=== PATIENT | female | born 1970 | race Caucasian/White ===

== ENCOUNTER → 2017-09-27 08:23 | Outpatient (CLI) | payer OTHER, SELFPAY ==
[2017-09-27 09:38] LABS: Cholesterol 173 mg/dL (200); Free T3 2.6 pg/mL (2.18-3.98); High Density Lipoprotein 53 mg/dL; T4 Free Direct 1.56 ng/dL (0.76-1.46); Thyroid Stim Hormone (TSH) 1.23 uIU/mL (0.358-3.74); Triglycerides 68 mg/dL; Very Low Density Lipoprotein 14 mg/dL (5-40)
[2017-09-29 10:01] LABS: Thyroid Peroxidase AB 244 IU/mL (0-34)
== END ==
PROVIDERS: Family Provider Family Medicine; PCP Family Medicine; Visit Provider Family Medicine
DX: Z13.220 Encounter for screening for lipoid disorders (principal); E03.9 Hypothyroidism, unspecified
CPT/HCPCS: 80061; 84439; 84443; 84481; 86376

== ENCOUNTER → 2018-01-07 15:28 | Outpatient (CLI) | payer OTHER, SELFPAY ==
[2018-01-07 18:15] LABS: Free T3 2.8 pg/mL (2.18-3.98); T4 Free Direct 1.31 ng/dL (0.76-1.46); Thyroid Stim Hormone (TSH) 0.94 uIU/mL (0.358-3.74)
== END ==
PROVIDERS: Family Provider Family Medicine; PCP Family Medicine; Visit Provider Family Medicine
DX: E03.9 Hypothyroidism, unspecified (principal)
CPT/HCPCS: 36415; 84439; 84443; 84481

== ENCOUNTER → 2018-10-20 07:13 | Outpatient (CLI) | payer OTHER, SELFPAY ==
[2018-10-20 11:15] LABS: AST(SGOT) 23 U/L (15-37); Alanine Aminotransfer ALT/SGPT 30 U/L (13-56); Albumin, Serum 3.8 g/dL (3.2-5.0); Alkaline Phosphatase 76 U/L (45-117); Anion Gap 11 (5-15); BUN 10 mg/dL (7-18); BUN/Creat Ratio 13.4 RATIO (10-20); Calcium,Total 8.9 mg/dL (8.5-10.1); Chloride 104 mmol/L (98-107); Creatinine, Serum 0.75 mg/dL (0.55-1.02); EST Glomerular Filtration Rate 87 mL/min (>60); Est Glom Filt Rate - Afr Amer 105 mL/min (>60); Globulin 3.7 g/dL (2.2-4.2); Glucose 73 mg/dL (74-106); Potassium 3.6 mmol/L (3.5-5.1); Protein, Total 7.5 g/dL (6.4-8.2); Sodium Level 141 mmol/L (136-145); T4 Free Direct 1.11 ng/dL (0.76-1.46)
== END ==
PROVIDERS: Family Provider Family Medicine; PCP Family Medicine; Referring Provider Family Medicine; Visit Provider Family Medicine
DX: E03.9 Hypothyroidism, unspecified (principal); R63.4 Abnormal weight loss
CPT/HCPCS: 36415; 80053; 84439; 84443

== ENCOUNTER → 2019-01-20 15:10 | Outpatient (CLI) | payer OTHER, SELFPAY ==
[2019-01-20 18:01] LABS: Anion Gap 5 (5-15); BUN 14 mg/dL (7-18); BUN/Creat Ratio 17.6 RATIO (10-20); Calcium,Total 9.2 mg/dL (8.5-10.1); Chloride 104 mmol/L (98-107); Creatinine, Serum 0.79 mg/dL (0.55-1.02); EST Glomerular Filtration Rate 81 mL/min (>60); Est Glom Filt Rate - Afr Amer 98 mL/min (>60); Glucose 82 mg/dL (74-106); Sodium Level 140 mmol/L (136-145); T4 Free Direct 1.41 ng/dL (0.76-1.46); Thyroid Stim Hormone (TSH) 0.41 uIU/mL (0.358-3.74)
== END ==
PROVIDERS: Family Provider Family Medicine; PCP Family Medicine; Referring Provider Family Medicine; Visit Provider Nurse Practitioner Family
DX: R42 Dizziness and giddiness (principal); E03.9 Hypothyroidism, unspecified
CPT/HCPCS: 36415; 80048; 84439; 84443

== ENCOUNTER → 2019-03-17 15:37 | Outpatient (CLI) | payer OTHER, SELFPAY ==
[2019-03-17 17:54] LABS: Cholesterol 218 mg/dL (200); Free T3 2.7 pg/mL (2.18-3.98); High Density Lipoprotein 63 mg/dL; Triglycerides 226 mg/dL; Very Low Density Lipoprotein 45 mg/dL (5-40)
[2019-03-19 06:48] LABS: Thyroid Peroxidase AB 142 IU/mL (0-34)
== END ==
PROVIDERS: Family Provider Family Medicine; PCP Family Medicine; Referring Provider Internal Medicine Endocrinology, Diabetes & Metabolism; Visit Provider Internal Medicine Endocrinology, Diabetes & Metabolism
DX: Z00.00 Encounter for general adult medical examination without abnormal findings (principal); E03.9 Hypothyroidism, unspecified
CPT/HCPCS: 36415; 80061; 84439; 84443; 84481; 86376

== ENCOUNTER → 2019-03-31 08:57 | Outpatient (CLI) | payer OTHER, SELFPAY ==
--- NOTE | 2019-03-31 09:13 | US_ITS ---
STUDY: THYROID ULTRASOUND REASON FOR EXAM: Female, 48 years old. TECHNIQUE: Ultrasound evaluation of the thyroid was performed with real-time and static self-scale imaging. COMPARISON: None. FINDINGS: RIGHT LOBE: The right lobe of the thyroid gland measures 5.3 x 1.8 x 1.9 cm it is heterogeneous but mostly hypoechoic and irregular cm. There is a 0.4 x 0.2 cm nodule within the right lobe that shows hyperechoic center. LEFT LOBE: The left lobe of the thyroid gland measures 4.2 x 1.5 x 1.2 cm irregular hypoechoic heterogeneous in appearance. There are no demonstrated solid, cystic or complex lesions. ISTHMUS: The isthmus measures 3 mm . The regional lymph nodes are normal. US/Thyroid IMPRESSION: Hypoechoic heterogeneous thyroid tissue of both lobes with a small nodule within the right lobe as mentioned above Electronically Signed: Anel Kendall, at 10:15 EST Tel , Service support ,
== END ==
PROVIDERS: Family Provider Family Medicine; PCP Family Medicine; Referring Provider Internal Medicine Endocrinology, Diabetes & Metabolism; Visit Provider Internal Medicine Endocrinology, Diabetes & Metabolism
DX: E04.1 Nontoxic single thyroid nodule (principal)
CPT/HCPCS: 76536

== ENCOUNTER → 2019-06-21 07:14 | Outpatient (CLI) | payer OTHER, SELFPAY ==
[2019-06-21 10:20] LABS: Absolute Neutrophil Count 3.7 X10^3/uL (2.0-7.7); Basophil# 0.04 X10^3/uL; Basophil% 0.7 % (0-1); Eosinophil# 0.09 X10^3/uL; Eosinophils% 1.5 % (0-5); Hematocrit 40.8 % (37-47); Mean Corp Hgb Conc 34.3 g/dL (32-36); Mean Corpuscular Volume 90.3 fL (81-99); Mean Platelet Vol. 10.8 fl (6.2-12.0); Monocyte# 0.49 X10^3/uL; Monocyte% 8.3 % (0-10); NRBC Flagged by Analyzer 0 % (0-5); Neutrophil # 3.69 X10^3/uL (2.7-7.7); Neutrophil % 62.3 % (47-70); Platelet Count 264 K/mm3 (150-450); RBC Distribution Width CV 12.2 % (11.6-14.6); RBC Distribution Width SD 40.1 fl (35.1-43.9); Red Blood Count 4.52 M/mm3 (4.2-5.4); White Blood Count 5.9 K/mm3 (4.4-11.0)
[2019-06-21 10:44] LABS: AST(SGOT) 17 U/L (15-37); Alanine Aminotransfer ALT/SGPT 24 U/L (13-56); Albumin, Serum 3.7 g/dL (3.2-5.0); Alkaline Phosphatase 76 U/L (45-117); Anion Gap 6 (5-15); BUN 12 mg/dL (7-18); BUN/Creat Ratio 14.8 RATIO (10-20); Calcium,Total 8.7 mg/dL (8.5-10.1); Chloride 107 mmol/L (98-107); Creatinine, Serum 0.81 mg/dL (0.55-1.02); EST Glomerular Filtration Rate 79 mL/min (>60); Est Glom Filt Rate - Afr Amer 96 mL/min (>60); Free T3 2.1 pg/mL (2.18-3.98); Globulin 3.7 g/dL (2.2-4.2); Glucose 93 mg/dL (74-106); Potassium 3.7 mmol/L (3.5-5.1); Protein, Total 7.4 g/dL (6.4-8.2); Sodium Level 141 mmol/L (136-145); T4 Free Direct 1.34 ng/dL (0.76-1.46); Thyroid Stim Hormone (TSH) 3.57 uIU/mL (0.358-3.74)
[2019-06-21 10:54] LABS: Cholesterol 229 mg/dL (200); High Density Lipoprotein 63 mg/dL; Triglycerides 113 mg/dL; Very Low Density Lipoprotein 23 mg/dL (5-40)
== END ==
PROVIDERS: PCP Family Medicine; Referring Provider Internal Medicine Endocrinology, Diabetes & Metabolism; Visit Provider Internal Medicine Endocrinology, Diabetes & Metabolism
DX: Z00.00 Encounter for general adult medical examination without abnormal findings (principal); E03.9 Hypothyroidism, unspecified; E55.9 Vitamin D deficiency, unspecified
CPT/HCPCS: 36415; 80053; 80061; 82306; 84439; 84443; 84481; 85025

== ENCOUNTER → 2019-10-05 09:23 | Outpatient (CLI) | payer OTHER, SELFPAY ==
[2019-10-05 11:08] LABS: Free T3 2.3 pg/mL (2.18-3.98); T4 Free Direct 1.18 ng/dL (0.76-1.46); Thyroid Stim Hormone (TSH) 4.12 uIU/mL (0.358-3.74)
== END ==
PROVIDERS: PCP Family Medicine; Referring Provider Family Medicine; Visit Provider Family Medicine
DX: E03.9 Hypothyroidism, unspecified (principal)
CPT/HCPCS: 36415; 84439; 84443; 84481

== ENCOUNTER 2019-11-07 10:08 | Emergency (ER) | payer OTHER, SELFPAY ==
[2019-11-07 10:09] VITALS: BP 145/74; PULSE 70; RESP 18; TEMP 36.8; O2SAT 98; BMI 33.3
--- NOTE | 2019-11-07 10:40 | ED.DCSUM_ITS ---
History of Present Illness Chief Complaint: Weakness Informant: Patient Onset: Days Context: Gradual Onset Current Severity: Moderate Maximum Severity: Moderate Narrative: Patient presents secondary to concerns for dehydration and weakness. She states last Friday she got a sunburn. That evening she developed diarrhea. She has had a headache and felt generally weak since that time. She reports some abdominal cramping that started the following day and increased symptoms of reflux. She has noted increased sleepiness and states she would not want go to bed all weekend. She does report having some upper abdominal pain for the past month intermittently and thought she may be getting an ulcer. She denies frequent use of NSAIDs. She has a history of reflux in the past but has not req uired medication for this for quite some time. - Past Medical History (1) GERD (gastroesophageal reflux disease) Status: Chronic (2) Hypothyroid Status: Chronic Past Medical History - Allergies and Home Meds Allergies/Adverse Reactions: Allergies No Known Allergies Allergy (Verified 11/07/19 10:12) Primary Care Physician: Oscar Barroso MD [Primary Care Provider] - Prior records reviewed: Yes Lives: With Family Review of Systems General: Denies: Chills, Fever Eyes: Denies: Visual changes - bilaterally ENT: Denies: Bilateral ear pain Cardiovascular: Denies: Chest pain Respiratory: Denies: Dyspnea, Cough Gastrointestinal: Reports: Abdominal pain, Diarrhea Genitourinary: Denies: Dysuria Musculoskeletal: Reports: Back pain. Denies: Extremity Pain Skin: Denies: Rash Neurological: Reports: Headache Hematologic: Denies: Easy bruising, Easy bleeding Allergy: Denies: Uticaria Physical Exam Vital Signs/Narrative: Vital Signs Temp Pulse Resp BP Pulse Ox 11/07/19 10:09 98.2 F 70 18 145/74 H 98 Inital Vital Signs reviewed: Yes General: Well nourished, Well developed Head: Normocephalic ENT: Moist mucous membranes Neck: Supple Cardiovascular: Regular rate, Regular rhythm Respiratory: No distress, CTA bilaterally Abdomen: Soft, Tender - Mild epigastric tenderness to palpation., Hypoactive bowel sounds. Negative for: Guarding, Rebound tenderness Extremities: Nontender Skin: Normal color Neurological: Alert, Oriented x3 Psychological: Normal affect Diagnostic/Tx/Re-eval Laboratory Results 11/07/19 11/07/19 11/07/19 10:30 10:30 12:50 WBC 6.7 RBC 4.78 Hgb 14.5 Hct 42.7 MCV 89.3 MCH 30.3 MCHC 34.0 RDW Std Deviation 39.1 RDW Coeff of Sandra 12.0 Plt Count 279 MPV 9.5 Immature Gran % (Auto) 0.400 Neut % (Auto) 75.3 H Lymph % (Auto) 16.[address] [place] % (Auto) 7.3 Eos % (Auto) 0.3 Baso % (Auto) 0.4 Absolute Neuts (auto) 5.0 Absolute Lymphs (auto) 1.09 Nucleated RBC % 0 Sodium 138 Potassium 4.1 Chloride 106 Carbon Dioxide 28.0 Anion Gap 4 L BUN 9 Creatinine 0.70 Estim Creat Clear Calc 85.56 Est GFR (MDRD) Af Amer 113 Est GFR (MDRD) Non-Af 93 BUN/Creatinine Ratio 12.8 Glucose 102 Calcium 8.7 Total Bilirubin 1.10 H AST 28 ALT 30 Alkaline Phosphatase 69 Total Protein 7.8 Albumin 3.7 Globulin 4.1 Albumin/Globulin Ratio 0.9 Lipase 90 TSH 1.18 Urine Color Yellow Urine Clarity Sl. Cloudy Urine pH 5.0 Ur Specific [place] 1.020 Urine Protein Negative Urine Glucose (UA) Normal Urine Ketones 50 H Urine Occult Blood Negative Urine Nitrite Negative Urine Bilirubin Negative Urine Urobilinogen Normal Ur Leukocyte Esterase 25 H Urine RBC 0 SEEN Urine WBC 0-5 SEEN Ur Squamous Epith Cells 0-5 SEEN Urine Bacteria RARE Urine Mucus 1+ - Medical Decision Making Patient was given Toradol, Zofran, Protonix, and a liter of IV fluids. On repeat evaluation she does feel improved. We discussed following a bland diet and increasing fluids such as Gatorade or Powerade. She is to follow with her primary care physician later this week. She is given return instructions. ED Disposition - Plan for ED Patient: Disposition: Home or Assisted Living Diagnosis: Dehydration Instructions: ED Dehydration Adult Referrals: Oscar Barroso MD [Primary Care Provider] - 5-7 Days
[2019-11-07 11:00] LABS: Absolute Lymphocyte Count 1.09 X10^3/uL (0.83-4.51); Basophil# 0.03 X10^3/uL; Basophil% 0.4 % (0-1); Eosinophil# 0.02 X10^3/uL; Eosinophils% 0.3 % (0-5); Hematocrit 42.7 % (37-47); Hemoglobin 14.5 g/dL (12.0-15.0); Lymphocyte # 1.09 X10^3/ul (4.0); Lymphocyte % 16.3 % (19-41); Mean Corpuscular Hgb 30.3 pg (27.0-32.0); Mean Corpuscular Volume 89.3 fL (81-99); Mean Platelet Vol. 9.5 fl (6.2-12.0); Monocyte# 0.49 X10^3/uL; Monocyte% 7.3 % (0-10); NRBC Flagged by Analyzer 0 % (0-5); Neutrophil # 5.03 X10^3/uL (2.7-7.7); Neutrophil % 75.3 % (47-70); Platelet Count 279 K/mm3 (150-450); RBC Distribution Width SD 39.1 fl (35.1-43.9); Red Blood Count 4.78 M/mm3 (4.2-5.4); White Blood Count 6.7 K/mm3 (4.4-11.0)
[2019-11-07] MEDS: 0.9% Normal Saline 1,000 ML 1000 ML IV (11:06)
[2019-11-07] MEDS: Ondansetron 4 MG/2 ML Vial IV (11:07)
[2019-11-07] MEDS: Ketorolac 30 MG/ML Syringe IV (11:07)
[2019-11-07 11:24] LABS: ALB/GLOB Ratio 0.9 RATIO (0.9-2.4); AST(SGOT) 28 U/L (15-37); Alanine Aminotransfer ALT/SGPT 30 U/L (13-56); Albumin, Serum 3.7 g/dL (3.2-5.0); Alkaline Phosphatase 69 U/L (45-117); Anion Gap 4 (5-15); BUN 9 mg/dL (7-18); BUN/Creat Ratio 12.8 RATIO (10-20); Calcium,Total 8.7 mg/dL (8.5-10.1); Chloride 106 mmol/L (98-107); EST Glomerular Filtration Rate 93 mL/min (>60); Est Glom Filt Rate - Afr Amer 113 mL/min (>60); Estimated Creatinine Clearance 85.56 ml/min; Globulin 4.1 g/dL (2.2-4.2); Glucose 102 mg/dL (74-106); Lipase 90 U/L (73-393); Potassium 4.1 mmol/L (3.5-5.1); Protein, Total 7.8 g/dL (6.4-8.2); Sodium Level 138 mmol/L (136-145); Thyroid Stim Hormone (TSH) 1.18 uIU/mL (0.358-3.74)
[2019-11-07 12:54] LABS: Red Blood Cells-Urine 0 SEEN /hpf (0-5)
[2019-11-07 12:59] LABS: Color, Urine Yellow (Yellow); Glucose, Dipstick Normal (Normal); Ketone-Dipstick 50 mg/dl (Negative); Leukocyte Esterase-Dipstick 25 /ul (Negative); Nitrite-Dipstick Negative (Negative); Occult Blood-Urine Negative /ul (Negative); Protein-Dipstick Negative (Negative); Urine Bilirubin Dipstick Negative (Negative); Urine Clarity Sl. Cloudy (Clear); Urine Urobilinogen Normal (Normal)
[2019-11-07 13:13] LABS: Bacteria RARE /hpf (None Seen); Mucous, Urine 1+ /hpf (<or=2+); Squamous Epithelial Cells - UA 0-5 SEEN /hpf (5-10); White Blood Cells 0-5 SEEN /hpf (0-5)
[2019-11-07 13:50] VITALS: BP 138/79; PULSE 77; RESP 16
== END 2019-11-07 13:51 | disposition home or self-care (01) ==
PROVIDERS: Emergency Provider Emergency Medicine; PCP Family Medicine
DX: E86.0 Dehydration (principal); E03.9 Hypothyroidism, unspecified
CPT/HCPCS: 80053; 81001; 83690; 84443; 85025; 96361; 96365; 96375; 99283; J2405

== ENCOUNTER → 2019-11-08 14:09 | Outpatient (CLI) | payer OTHER, SELFPAY ==
[2019-11-07 10:09] VITALS: BMI 33.3
[2019-11-08 16:21] LABS: Magnesium 2.1 mg/dL (1.6-2.6)
== END ==
PROVIDERS: PCP Family Medicine; Visit Provider Family Medicine
DX: R53.81 Other malaise (principal); R53.83 Other fatigue
CPT/HCPCS: 36415; 83735

== ENCOUNTER → 2019-11-09 07:49 | Outpatient (CLI) | payer OTHER, SELFPAY ==
[2019-11-07 10:09] VITALS: BMI 33.3
== END ==
PROVIDERS: PCP Family Medicine; Referring Provider Family Medicine; Visit Provider Family Medicine
DX: R53.81 Other malaise (principal); R53.83 Other fatigue
CPT/HCPCS: 87506

== ENCOUNTER → 2020-06-01 14:51 | Outpatient (CLI) | payer OTHER, SELFPAY ==
--- NOTE | 2020-06-01 14:58 | US_ITS ---
STUDY: THYROID ULTRASOUND REASON FOR EXAM: Female, 50 years old. THYROMEGALY TECHNIQUE: Ultrasound evaluation of the thyroid was performed with real-time and static self-scale imaging. COMPARISON: None. FINDINGS: RIGHT LOBE: The right lobe of the thyroid gland is mildly enlarged and measures 5.2 cm x 1.9 cm x 2 cm. There is a heterogeneous echotexture. There are no demonstrated solid, cystic or complex lesions. LEFT LOBE: The left lobe of the thyroid gland measures 4.2 cm x 1.6 cm x 1.1 cm. There is a heterogeneous echotexture. There are no demonstrated solid, cystic or complex lesions. ISTHMUS: The isthmus measures 4.7 mm. The regional lymph nodes are normal. US/Thyroid IMPRESSION: Mildly enlarged right lobe of the thyroid gland. Heterogeneous echotexture of both lobes. Electronically Signed: Jose Hurtado MD at 15:42 EST , Service support ,
[2020-06-01 16:10] LABS: Free T3 2.7 pg/mL (2.18-3.98); T4 Free Direct 1.44 ng/dL (0.76-1.46); Thyroid Stim Hormone (TSH) 0.91 uIU/mL (0.358-3.74)
== END ==
PROVIDERS: PCP Family Medicine; Referring Provider Internal Medicine Endocrinology, Diabetes & Metabolism; Visit Provider Internal Medicine Endocrinology, Diabetes & Metabolism
DX: E01.0 Iodine-deficiency related diffuse (endemic) goiter (principal)
CPT/HCPCS: 36415; 76536; 84439; 84443; 84481

== ENCOUNTER → 2020-10-17 15:10 | Outpatient (CLI) | payer OTHER, SELFPAY ==
--- NOTE | 2020-10-17 15:15 | RAD_ITS ---
HISTORY: INJURY OF FINGERS. TECHNIQUE: XR Fingers Min 2 Views. Number of images including paperwork: 3. COMPARISON: None. FINDINGS: OSSEOUS STRUCTURES: No acute fracture. Mineralization unremarkable. JOINT SPACES: Maintained. No dislocation. RAD/Finger(s) Min 2 Views IMPRESSION: No acute fracture or dislocation identified in the left fifth finger. at 1637 Reported and signed by: Shandra Miranda MD Electronically Signed: Shandra Miranda MD at 16:36 EDT Tel , Service support ,
--- NOTE | 2020-10-17 15:24 | RAD_ITS ---
STUDY: X-RAY - LEFT HAND, ATTENTION 4 FINGER REASON FOR EXAM: Female, 50 years old. PAIN TECHNIQUE: 3 view(s) of the finger were obtained. COMPARISON: None. FINDINGS: Normal metacarpal head. Normal metacarpophalangeal joint. Normal proximal phalanx. There is a subtle lucency at the base of the middle phalanx of the fourth digit. Normal distal phalanx. Normal proximal interphalangeal joint. Normal distal interphalangeal joint. RAD/Finger(s) Min 2 Views IMPRESSION: Findings suspicious for subacute nondisplaced corner fracture of the head of the middle phalanx of the fourth digit. Electronically Signed: Zulma Domínguez MD at 5:21 EDT Tel , Service support ,
== END ==
PROVIDERS: PCP Family Medicine; Referring Provider Family Medicine; Visit Provider Family Medicine
DX: M79.645 Pain in left finger(s) (principal)
CPT/HCPCS: 73140

== ENCOUNTER → 2020-10-30 16:08 | Outpatient (CLI) | payer OTHER, SELFPAY ==
--- NOTE | 2020-10-30 16:12 | RAD_ITS ---
STUDY: X-RAY - LEFT HAND, ATTENTION 4 FINGER REASON FOR EXAM: Female, 50 years old. Pain at PIP TECHNIQUE: 3 view(s) of the finger were obtained. COMPARISON: 10/17/2020 FINDINGS: Normal metacarpal head. Normal metacarpophalangeal joint. Normal proximal phalanx. Healing fracture the volar aspect of the base of the middle phalanx. Normal distal phalanx. Normal proximal interphalangeal joint. Normal distal interphalangeal joint. RAD/Finger(s) Min 2 Views IMPRESSION: Healing fracture the volar aspect of the base of the middle phalanx. Electronically Signed: Ronald Castellano MD at 8:43 EDT Tel , Service support ,
== END ==
PROVIDERS: PCP Family Medicine; Referring Provider Family Medicine; Visit Provider Family Medicine
DX: M79.645 Pain in left finger(s) (principal)
CPT/HCPCS: 73140

== ENCOUNTER → 2021-02-28 14:58 | Outpatient (CLI) | payer OTHER, SELFPAY ==
[2021-02-28 18:28] LABS: Hemoglobin A1c 5.2 % (3.8-5.6)
[2021-02-28 18:31] LABS: ALB/GLOB Ratio 0.9 RATIO (0.9-2.4); AST(SGOT) 23 U/L (15-37); Alanine Aminotransfer ALT/SGPT 37 U/L (13-56); Albumin, Serum 3.7 g/dL (3.2-5.0); Alkaline Phosphatase 75 U/L (45-117); Anion Gap 7 (5-15); BUN 8 mg/dL (7-18); BUN/Creat Ratio 10.7 RATIO (10-20); Calcium,Total 8.7 mg/dL (8.5-10.1); Chloride 103 mmol/L (98-107); Creatinine, Serum 0.75 mg/dL (0.55-1.02); EST Glomerular Filtration Rate 86 mL/min (>60); Est Glom Filt Rate - Afr Amer 104 mL/min (>60); Globulin 4.2 g/dL (2.2-4.2); Glucose 88 mg/dL (74-106); Potassium 4.2 mmol/L (3.5-5.1); Protein, Total 7.9 g/dL (6.4-8.2); Sodium Level 138 mmol/L (136-145); T4 Free Direct 1.38 ng/dL (0.76-1.46); Thyroid Stim Hormone (TSH) 1.08 uIU/mL (0.358-3.74)
== END ==
PROVIDERS: PCP Family Medicine; Referring Provider Internal Medicine Endocrinology, Diabetes & Metabolism; Visit Provider Internal Medicine Endocrinology, Diabetes & Metabolism
DX: E03.9 Hypothyroidism, unspecified (principal); E06.9 Thyroiditis, unspecified
CPT/HCPCS: 36415; 80053; 83036; 84439; 84443; 84481

== ENCOUNTER → 2021-09-19 | Outpatient (CLI) | payer OTHER, SELFPAY ==
[2021-09-19 07:09] LABS: Absolute Lymphocyte Count 1.78 X10^3/uL (0.83-4.51); Basophil# 0.06 X10^3/uL; Basophil% 0.9 % (0-1); Eosinophil# 0.12 X10^3/uL; Eosinophils% 1.8 % (0-5); Hematocrit 42.4 % (37-47); Hemoglobin 14.2 g/dL (12.0-15.0); Lymphocyte # 1.78 X10^3/ul (0.83-4.51); Lymphocyte % 26.6 % (19-41); Mean Corp Hgb Conc 33.5 g/dL (32-36); Mean Corpuscular Hgb 30.1 pg (27.0-32.0); Mean Platelet Vol. 10.5 fl (6.2-12.0); Monocyte# 0.71 X10^3/uL; Monocyte% 10.6 % (0-10); NRBC Flagged by Analyzer 0 % (0-5); Neutrophil # 3.99 X10^3/uL (2.7-7.7); Neutrophil % 59.8 % (47-70); Platelet Count 287 K/mm3 (150-450); RBC Distribution Width CV 12.2 % (11.6-14.6); RBC Distribution Width SD 40.4 fl (35.1-43.9); Red Blood Count 4.71 M/mm3 (4.2-5.4); White Blood Count 6.7 K/mm3 (4.4-11.0)
[2021-09-19 07:49] LABS: ALB/GLOB Ratio 0.9 RATIO (0.9-2.4); AST(SGOT) 25 U/L (15-37); Alanine Aminotransfer ALT/SGPT 41 U/L (13-56); Albumin, Serum 3.5 g/dL (3.2-5.0); Alkaline Phosphatase 76 U/L (45-117); Anion Gap 5 (5-15); BUN 12 mg/dL (7-18); BUN/Creat Ratio 17.8 RATIO (10-20); Calcium,Total 8.6 mg/dL (8.5-10.1); Chloride 107 mmol/L (98-107); Cholesterol 234 mg/dL (200); Creatinine, Serum 0.67 mg/dL (0.55-1.02); EST Glomerular Filtration Rate 97 mL/min (>60); Est Glom Filt Rate - Afr Amer 118 mL/min (>60); Free T3 2.5 pg/mL (2.18-3.98); Globulin 3.7 g/dL (2.2-4.2); Glucose 118 mg/dL (74-106); High Density Lipoprotein 52 mg/dL; Magnesium 1.9 mg/dL (1.6-2.6); Potassium 3.6 mmol/L (3.5-5.1); Protein, Total 7.2 g/dL (6.4-8.2); Sodium Level 140 mmol/L (136-145); T4 Free Direct 1.16 ng/dL (0.76-1.46); Thyroid Stim Hormone (TSH) 1.16 uIU/mL (0.358-3.74); Triglycerides 126 mg/dL; Very Low Density Lipoprotein 25 mg/dL (5-40)
[2021-09-20 21:07] LABS: Thyroid Peroxidase AB 121 IU/mL (0-34)
[2021-09-21 11:18] LABS: Thyroglobulin Antibody 2.7 IU/mL (0.0-0.9)
== END | disposition home or self-care (01) ==
LOC: LAB 06:10
PROVIDERS: PCP Family Medicine; Referring Provider Family Medicine; Visit Provider Family Medicine
DX: R00.2 Palpitations (principal); E03.9 Hypothyroidism, unspecified; Z13.220 Encounter for screening for lipoid disorders
CPT/HCPCS: 36415; 80053; 80061; 83735; 84439; 84443; 84481; 85025; 86376; 86800

== ENCOUNTER 2022-06-20 09:25 | Emergency (ER) | payer OTHER, SELFPAY ==
[2022-06-20 09:26] VITALS: BP 182/101; PULSE 78; RESP 18; TEMP 36.6; O2SAT 99; BMI 35.7
[2022-06-20 09:38] VITALS: BP 162/103; PULSE 73; RESP 16; O2SAT 98; O2SAT 99
[2022-06-20 09:44] LABS: Absolute Lymphocyte Count 1.73 X10^3/uL (0.83-4.51); Absolute Neutrophil Count 5.9 X10^3/uL (2.0-7.7); Basophil# 0.05 X10^3/uL; Basophil% 0.6 % (0-1); Eosinophil# 0.01 X10^3/uL; Eosinophils% 0.1 % (0-5); Hematocrit 42.5 % (37-47); Hemoglobin 14.5 g/dL (12.0-15.0); Lymphocyte # 1.73 X10^3/ul (0.83-4.51); Lymphocyte % 21.1 % (19-41); Mean Corp Hgb Conc 34.1 g/dL (32-36); Mean Platelet Vol. 9.7 fl (6.2-12.0); Monocyte# 0.45 X10^3/uL; Monocyte% 5.5 % (0-10); NRBC Flagged by Analyzer 0 % (0-5); Neutrophil # 5.93 X10^3/uL (2.7-7.7); Neutrophil % 72.5 % (47-70); Platelet Count 340 K/mm3 (150-450); RBC Distribution Width CV 12.5 % (11.6-14.6); RBC Distribution Width SD 40.3 fl (35.1-43.9); Red Blood Count 4.83 M/mm3 (4.2-5.4); White Blood Count 8.2 K/mm3 (4.4-11.0)
--- NOTE | 2022-06-20 09:45 | RAD_ITS ---
STUDY: X-RAY CHEST REASON FOR EXAM: Female, 52 years old. Chest pain TECHNIQUE: Single AP portable view of the chest. COMPARISON: Comparison is made with prior study dated 06/07/2015. FINDINGS: EKG electrodes are seen. The lungs are clear and expanded. There is no demonstrated pleural abnormality. Normal size heart. Normal mediastinum and nina. Normal visualized pulmonary arteries. Normal visualized aortic arch and descending thoracic aorta. Normal visualized thoracic spine. Normal visualized ribs, clavicles, and shoulders. There is no demonstrated abnormality of the visualized soft tissue structures of the upper abdomen. RAD/Chest 1 View (Portable) IMPRESSION: Normal x-ray examination of the chest. Electronically Signed: Jose Hurtado MD at 10:13 [facility] ,
[2022-06-20] MEDS: Aspirin 81 MG TAB.CHEW 324 MG PO (09:51)
[2022-06-20 10:07] LABS: Anion Gap 8 (5-15); BUN 10 mg/dL (7-18); BUN/Creat Ratio 12.8 RATIO (10-20); Calcium,Total 9.6 mg/dL (8.5-10.1); Chloride 104 mmol/L (98-107); Creatinine, Serum 0.78 mg/dL (0.55-1.02); EST Glomerular Filtration Rate 82 mL/min (>60); Est Glom Filt Rate - Afr Amer 99 mL/min (>60); Estimated Creatinine Clearance 74.19 ml/min; Glucose 126 mg/dL (74-106); Potassium 3.8 mmol/L (3.5-5.1); Sodium Level 139 mmol/L (136-145); Troponin-I HS (w/2H Reflex) 5 pg/mL (3.0-54.0)
[2022-06-20 11:04] VITALS: BP 133/85; PULSE 65; RESP 16; O2SAT 99
[2022-06-20 11:42] LABS: Reflex Troponin-HS? (from REC) Y
--- NOTE | 2022-06-20 12:09 | EDS_ITS ---
HPI History of Present Illness Chief Complaint: Palpitations Narrative Narrative: Patient presenting with palpitations which has had for a while. She states there is a new symptom of possibly pain that radiates into the right side of her chest and down her right arm which is slowly kind of migrated up into her left shoulder and in the left side of her back. It she states is kind of like a pressure. Its not sharp. No cough, fever, chills. No cardiac history. No DVT/PE risk factors. [facility] Medical History (Updated 06/20/22 @ 09:40 by Karo Dunn) Hypertension Hypothyroidism Home Medications levothyroxine 137 mcg tablet 137 mcg PO DAILY 11/07/19 [History Last Taken Unknown] Allergy/AdvReac Type Severity Reaction Status Date / Time No Known Allergies Allergy Verified 06/20/22 09:29 Social History Smoking Status: Never smoker ROS ROS ED Constitutional Constitutional ED: Denies chills, fever(s) or sweats Eyes Eyes: Denies blurry vision or change in vision ENT ENT ED: Denies ear pain or sore throat Cardiovascular Cardiovascular: Reports chest pain and palpitations; Denies racing heartbeat Respiratory/Chest Respiratory/Chest: Denies cough, dyspnea or sputum Gastrointestinal Gastrointestinal: Denies abdominal pain, constipation, diarrhea, nausea or vomiting Genitourinary Genitourinary ED: Denies dysuria, hematuria or urinary frequency Musculoskeletal Musculoskeletal: Denies arthralgias, myalgias or neck pain Integumentary Denies abscess, Abrasions or rash Neurologic Neurologic: Denies headache(s), paresthesias or weakness Psychiatric Psychiatric: Denies anxiety, depression, suicidal ideation or suicidal thoughts Endocrine Endocrinology: Denies polydipsia or polyuria EXAM Physical Exam Const Vital Signs: 06/20/22 09:26 06/20/22 09:38 06/20/22 09:38 Temperature 97.9 F Temperature Source Temporal Pulse Rate 78 73 Respiratory Rate 18 16 Respiratory Pattern Blood Pressure 182/101 H 162/103 H Blood Pressure Mean 128 122 Pulse Ox 99 99 98 Oxygen Delivery Method Room Air Room Air Room Air 06/20/22 09:38 06/20/22 11:04 Temperature Temperature Source Pulse Rate 65 Respiratory Rate 16 Respiratory Pattern Normal Blood Pressure 133/85 H Blood Pressure Mean 101 Pulse Ox 99 Oxygen Delivery Method Room Air General Appearance ED: Negative for pallor HEENT Reports normocephalic, head/scalp atraumatic and moist mucous membranes Eyes PERRL and EOMs intact bilaterally Neck no lymphadenopathy and supple Chest Wall inspection of chest normal and palpation of chest normal Resp normal respiratory effort and clear to auscultation bilaterally Auscultation: Negative for rales, rhonchi or wheezes Cardio regular rate and regular rhythm GI normal to inspection, nondistended, normoactive bowel sounds and non-distended Auscultation: normoactive bowel sounds Palpation: soft Narrative: Deferred Extremity normal to inspection General Extremety ED: Yes edema and tenderness General Extremity: edema Neuro oriented x3 and CN's II-XII intact bilaterally Sensorium / Orientation: alert Motor Exam: strength 5/5 throughout Psych mental status grossly normal Attitude: No agitated Skin no rashes or lesions noted and no wounds General Skin Exam: Negative for jaundice or pallor Heart Score History: Slightly/Non-Suspicious ECG: Normal Age: >45 - <65 years Risk Factors: 1 or 2 Risk Factors Troponin: </= Normal Limit Score: 2 MDM MDM MDM Narrative Medical decision making narrative: 52-year-old female presenting with atypical chest pain presentation. HEART score of 2. CBC to assess white blood cell count, hemoglobin, platelets, differential. BMP to assess renal function and electrolytes. High-sensitivity troponin assess for cardiac source. Chest x-ray for the same reason. Differential at this point is costochondritis, pneumonia, ACS, GERD. Patient is PERC negative and its unlikely to be a PE. She is not having a ripping or tearing to suggest a dissection. Initial blood pressure was elevated however his come down to 133/85 after resting. CBC and BMP are unremarkable. High- sensitivity troponin came back at 5. Chest x-ray on my interpretation shows no acute cardiopulmonary process. Radiologist are persistent agrees. EKG sinus rhythm with a ventricular rate of 72 bpm without ischemic changes. We will obtain a delta troponin. Delta troponin unchanged at 5. At this point I feel the patient is stable for discharge home. All lab work and findings were discussed. Patient amenable to going home. She states she does have a headache and requesting Tylenol. This was given. All questions were answered. Impression: 1. Chest pain 2. Palpitations 3. Headache Lab Data Attestation: I reviewed the patient's lab results. Labs: Laboratory Results - last 24 hr 06/20/22 06/20/2206/20/23 09:35 09:35 11:50 WBC 8.2 RBC 4.83 Hgb 14.5 Hct 42.5 MCV 88.0 MCH 30.0 MCHC 34.1 RDW Std Deviation 40.3 RDW Coeff of Sandra 12.5 Plt Count 340 MPV 9.7 Immature Gran % (Auto) 0.200 Neut % (Auto) 72.5 H Lymph % (Auto) 21.1 [place] % (Auto) 5.5 Eos % (Auto) 0.1 Baso % (Auto) 0.6 Absolute Neuts (auto) 5.9 Absolute Lymphs (auto) 1.73 Nucleated RBC % 0 Sodium 139 Potassium 3.8 Chloride 104 Carbon Dioxide 27.0 Anion Gap 8 BUN 10 Creatinine 0.78 Estim Creat Clear Calc 74.19 Est GFR (MDRD) Af Amer 99 Est GFR (MDRD) Non-Af 82 BUN/Creatinine Ratio 12.8 Glucose 126 H Calcium 9.6 Troponin I High Sens 5 5 Radiography Diagnostic Testing: Clinical Impression(s) from Imaging Studies Chest X-Ray 06/20/22 09:45 IMPRESSION: Normal x-ray examination of the chest. Electronically Signed: Jose Hurtado MD at 10:13 EST , Discharge Plan Triage Chief Complaint: Palpitations ED Provider: Aleksandr Hyde Dx/Rx/DC Orders Instructions: ED Chest Pain, Noncardiac, ED Palpitations Prescriptions: No Action levothyroxine 137 MCG tablet 137 mcg PO DAILY Primary Care Provider: Oscar Barroso Referrals: Oscar Barroso MD [Primary Care Provider] - Disposition Disposition: Home, Self Care
[2022-06-20 12:14] LABS: Troponin-I HS 5 pg/mL (3.0-54.0)
[2022-06-20] MEDS: Acetaminophen 500 MG Tablet 1000 MG PO (12:43)
[2022-06-20 12:56] VITALS: BP 147/89
== END 2022-06-20 12:56 | disposition home or self-care (01) ==
PROVIDERS: Emergency Provider Student in an Organized Health Care Education/Training Program; PCP Family Medicine; Visit Provider Student in an Organized Health Care Education/Training Program
DX: R07.9 Chest pain, unspecified (principal); R00.2 Palpitations; R51.9 Headache, unspecified
CPT/HCPCS: 71045; 80048; 84484; 85025; 93005; 99284; A4216

== ENCOUNTER → 2022-06-25 | Outpatient (CLI) | payer OTHER, SELFPAY ==
[2022-06-25 15:16] LABS: Erythrocyte Sedimentation Rate 10 mm/hr (0-30)
[2022-06-25 15:32] LABS: ALB/GLOB Ratio 1.1 RATIO (0.9-2.4); AST(SGOT) 20 U/L (15-37); Alanine Aminotransfer ALT/SGPT 40 U/L (13-56); Albumin, Serum 3.9 g/dL (3.2-5.0); Alkaline Phosphatase 68 U/L (45-117); Anion Gap 7 (5-15); BUN 9 mg/dL (7-18); BUN/Creat Ratio 11.9 RATIO (10-20); CRP 7.99 mg/L (0.0-3.0); Calcium,Total 9.4 mg/dL (8.5-10.1); Chloride 104 mmol/L (98-107); Creatinine, Serum 0.76 mg/dL (0.55-1.02); EST Glomerular Filtration Rate 85 mL/min (>60); Est Glom Filt Rate - Afr Amer 102 mL/min (>60); Globulin 3.7 g/dL (2.2-4.2); Glucose 103 mg/dL (74-106); Potassium 3.5 mmol/L (3.5-5.1); Protein, Total 7.6 g/dL (6.4-8.2); Sodium Level 139 mmol/L (136-145)
[2022-06-27 22:56] LABS: ANTINUCLEAR ANTIBODIES DIRECT Negative (Negative)
== END | disposition home or self-care (01) ==
LOC: MFPLAB 12:38
PROVIDERS: PCP Family Medicine; Referring Provider Family Medicine; Visit Provider Family Medicine
DX: R53.81 Other malaise (principal); R53.83 Other fatigue; I10 Essential (primary) hypertension
CPT/HCPCS: 36415; 80053; 83735; 85652; 86038; 86140; 86225; 86235

== ENCOUNTER → 2022-07-01 | Outpatient (CLI) | payer OTHER, SELFPAY ==
[2022-07-04 01:07] LABS: Metanephrine, Ur 46 ug/L (Undefined); Normetanephrines, 24Ur 432 ug/24 hr (131-612); Normetanephrines, Ur 188 ug/L (Undefined)
[2022-07-04 18:39] LABS: Metanephrines, 24Ur 106 ug/24 hr (36-209)
== END | disposition home or self-care (01) ==
LOC: LABSPEC 07:00
PROVIDERS: PCP Family Medicine; Referring Provider Family Medicine; Visit Provider Family Medicine
DX: R53.83 Other fatigue (principal); R53.81 Other malaise; I10 Essential (primary) hypertension
CPT/HCPCS: 81050; 83835

== ENCOUNTER → 2022-09-09 | Outpatient (CLI) | payer OTHER, SELFPAY ==
--- NOTE | 2022-09-09 15:08 | RAD_ITS ---
STUDY: X-RAY RIGHT FOOT, GREAT TOE REASON FOR EXAM: Female, 52 years old. PAIN -- GREAT TOE. Injury of the right great toe. TECHNIQUE: 3 view(s) of the toe were obtained. COMPARISON: None. FINDINGS: Normal visualized metatarsus. Normal metatarsophalangeal (M.T.P) joint. Normal interphalangeal joints. Nondisplaced avulsion type fracture at the base of the distal phalanx of the great toe on the lateral side. Soft tissue swelling. RAD/Toe(s) Min 2 Views IMPRESSION: Nondisplaced avulsion type fracture at the base of the distal phalanx of the great toe with overlying soft tissue swelling. Electronically Signed: Jose Hurtado MD at 15:24 EDT ,
== END | disposition home or self-care (01) ==
PROVIDERS: PCP Family Medicine; Referring Provider Family Medicine; Visit Provider Family Medicine
DX: M79.676 Pain in unspecified toe(s) (principal)
CPT/HCPCS: 73660

== ENCOUNTER → 2023-01-02 | Outpatient (CLI) | payer OTHER, SELFPAY ==
[2023-01-02 19:01] LABS: Anion Gap 6 (5-15); BUN 15 mg/dL (7-18); BUN/Creat Ratio 19.7 RATIO (10-20); Calcium,Total 9.4 mg/dL (8.5-10.1); Chloride 105 mmol/L (98-107); Creatinine, Serum 0.76 mg/dL (0.55-1.02); EST Glomerular Filtration Rate 84 mL/min (>60); Est Glom Filt Rate - Afr Amer 102 mL/min (>60); Glucose 82 mg/dL (74-106); Potassium 3.9 mmol/L (3.5-5.1); Sodium Level 137 mmol/L (136-145); Thyroid Stim Hormone (TSH) 0.44 uIU/mL (0.358-3.74)
== END | disposition home or self-care (01) ==
LOC: MFPLAB 15:54
PROVIDERS: PCP Family Medicine; Visit Provider Family Medicine
DX: E03.9 Hypothyroidism, unspecified (principal); I10 Essential (primary) hypertension
CPT/HCPCS: 36415; 80048; 84443

== ENCOUNTER → 2023-05-12 | Outpatient (CLI) | payer OTHER, SELFPAY ==
--- OUTSIDE RECORDS SUMMARY | 2023-05-12 16:03 | XMS RPT_ITS | CCD ---
Author Name Unknown Address [address] [place] [address] Organization [facility] Care Team Providers Care Pitching Coach Name Role Phone Donnell Barroso MD Primary Care Provider [phone] LETICIA BOLES Attending Unavailable JOANA, DONNELL A Primary Care Unavailable CHINA TOMLINSON Referring Unavail able JOANA, DONNELL A Primary Care Unavailable CHINA TOMLINSON Attending Unavail able JOANA, DONNELL A Primary Care Unavailable BARROSO, DONNELL A Primary Care Unavailable CHINA TOMLINSON Attending Unavail able BARROSO, DONNELL A Primary Care Unavailable CHINA TOMLINSON Referring Unavail able LETICIA BOLES Referring Unavailable ZOE PETERSON Attending Unavailable BARROSO, DONNELL A Primary Care Unavailable Allergies Allergy Classification Reported Allergen(s) Allergy Type Date of Onset Reaction(s) Facility (7 sources) environmental [Other] Propensity to adverse reactions 7 [facility] Work Phone: (4 sources) Animal Dander; Translations: [ANIMAL DANDER] Drug Allergy 3 Other: See Comments [facility] (4 sources) Mold Spores; Translations: [MOLD SPORES] Propensity to adverse reactions 3 Other: See Comments [facility] (1 source) OTHER; Translations: [OTHER] Propensity to adverse reactions (disorder) 7 [facility] Repository Medications Current Medications Medication Drug Class(es) Dates Sig (Normalized) Sig (Original) phentermine hydrochloride 37.5 mg oral capsule (2 sources) Sympathomimetic Amine Anorectic Start: 06-18-2022 End: 07-18-2022 take 37-37.9 capsules by mouth once daily before breakfast Phentermine HCl 37.5 mg capsule Indications: Class 2 severe obesity with serious comorbidity and body mass index (BMI) of 37.0 to 37.9 in adult, unspecified obesity type (HCC) , BMI 37.0-37.9, adult Take 1 capsule by mouth daily before breakfast for 30 days. 30 capsule 0 06/18/2022 07/18/2022 Active Completed/Discontinued Medications Medication Drug Class(es) Dates Sig (Normalized) Sig (Original) Acetaminophen (7 sources) ACETAMINOPHEN (T YLENOL ORAL) Take 2 tablets by mouth as needed. 0 Active Problems Active Problems Problem Classification Problem Date Documented Da te Episodic/Chronic Other and unspecified benign neoplasm (1 source) History of polyp of colon; Translations: [Personal history of colonic polyps] 04-07-2023 Episodic Other and unspecified benign neoplasm (1 source) Personal history of colonic polyps; Translations: [History of colon polyps] Onset: 04-07-2023 Episodic Other nutritional; endocrine; and metabolic disorders (1 source) Severe obesity; Translations: [Morbid (severe) obesity due to excess calories] Chronic Other nutritional; endocrine; and metabolic disorders (1 source) Body mass index 30+ - obesity; Translations: [Body mass index (BMI) 37.0-37.9, adult] Chronic Other nutritional; endocrine; and metabolic disorders (1 source) Morbid (severe) obesity due to excess calories; Translations: [Class 2 severe obesity with serious comorbidity and body mass index (BMI) of 37.0 to 37.9 in adult, unspecified obesity type (HCC)] Onset: 06-18-2022 Chronic Other nutritional; endocrine; and metabolic disorders (2 sources) Body mass index (BMI) 37.0-37.9, adult; Translations: [Class 2 severe obesity with serious comorbidity and body mass index (BMI) of 37.0 to 37.9 in adult, unspecified obesity type (HCC)] Onset: 06-18-2022 Chronic Other screening for suspected conditions (not mental disorders or infectious disease) (20 sources) Patient encounter status; Translations: [Encounter for screening mammogram for malignant neoplasm of breast] Onset: 12-22-2015 Episodic Residual codes; unclassified (1 source) Family history of polyp of colon; Translations: [Family history of colonic polyps] 10-04-2023 Episodic Thyroid disorders (16 sources) Hypothyroidism; Translations: [Hypothyroidism, unspecified] Onset: 07-08-2005 07-08-2005 Chronic Past or Other Problems Problem Classification Problem Date Documented Da te Episodic/Chronic Deficiency and other anemia (7 sources) Anemia; Translations: [Anemia, unspecified] Onset: 10-20-2013 10-20-2013 Episodic Results Test Name Value Interpretation Reference Range Facil ity Vital Signs Date Time Vital Sign Value Performing Clinician Faci lity 04-07-2023 08:51-0500 Diastolic blood pressure 70 mm[Hg] Zoe Peterson MD Work Phone: [facility] 04-07-2023 08:51-0500 Heart rate 49 /min Zoe Peterson MD Work Phone: [facility] 04-07-2023 08:51-0500 SaO2% (BldA) [Mass fraction] 100 % Zoe Peterson MD Work Phone: [facility] 04-07-2023 08:51-0500 Systolic blood pressure 136 mm[Hg] Zoe Peterson MD Work Phone: [facility] 04-07-2023 08:41-0500 Respiratory rate 16 /min Zoe Peterson MD Work Phone: [facility] 04-07-2023 07:26-0500 Body temperature 97.59 [degF] Zoe Peterson MD Work Phone: [facility] 04-07-2023 07:26-0500 Body weight 98.6 kg Zoe Peterson MD Work Phone: [facility] 02-05-2023 15:05-0400 Body height 165.1 cm Leticiaeliana Boles PA-C Work Phone: [facility] 02-05-2023 15:05-0400 Body temperature 97.5 [degF] Leticiaeliana Boles PA-C Work Phone: [facility] 02-05-2023 15:05-0400 Body weight 98.61 kg Leticiaeliana Boles PA-C Work Phone: [facility] 02-05-2023 15:05-0400 Diastolic blood pressure 86 mm[Hg] Leticia [place] PA-C Work Phone: [facility] 02-05-2023 15:05-0400 Heart rate 65 /min Leticia Elvi PA-C Work Phone: [facility] 02-05-2023 15:05-0400 SaO2% (BldA) [Mass fraction] 100 % Leticia [place] PA-C Work Phone: [facility] 02-05-2023 15:05-0400 Systolic blood pressure 118 mm[Hg] Leticia [place] PA-C Work Phone: [facility] 06-18-2022 14:58-0500 Body height 165.1 cm China Raygoza MD Work Phone: [facility] 06-18-2022 14:58-0500 Body weight 102.97 kg China Raygoza MD Work Phone: [facility] 06-18-2022 14:58-0500 Diastolic blood pressure 94 mm[Hg] China Raygoza MD Work Phone: [facility] 06-18-2022 14:58-0500 Systolic blood pressure 146 mm[Hg] China Raygoza MD Work Phone: [facility] 03-22-2022 14:59-0500 Body height 165.1 cm China Raygoza MD Work Phone: [facility] 03-22-2022 14:59-0500 Body weight 102.06 kg China Raygoza MD Work Phone: [facility] 03-22-2022 14:59-0500 Diastolic blood pressure 94 mm[Hg] China Raygoza MD Work Phone: [facility] 03-22-2022 14:59-0500 Systolic blood pressure 146 mm[Hg] China Raygoza MD Work Phone: [facility] Encounters Encounter Date Encounter Type Care Provider Facility Start: 04-30-2023 End: 04-30-2023 ambulatory DONNELL BARROSO Facility:[facility] Start: 04-17-2023 End: 04-17-2023 ambulatory DONNELL BARROSO Facility:[facility] Start: 04-08-2023 Telephone encounter Zoe Paredes MD Work Phone: General Surgery Start: 04-07-2023 End: 04-07-2023 ambulatory LETICIA BOLES Facility:[facility] Start: 04-07-2023 End: 04-07-2023 Subsequent hospital visit by physician Zoe Peterson MD Work Phone: Ambulatory Surgery Procedures Date Procedure Procedure Detail Performing Clinician Start: 04-07-2023 Colonoscopy flx dx w/collj spec when pfrmd Leticia Boles PA-C Work Phone: Start: 04-07-2023 Colonoscopy Zoe Peterson MD Work Phone: Start: 06-18-2022 Lipid 1996 panel - S vicki or Plasma Leticia NEGRONC Work Phone: Start: 03-22-2022 Mammography Mammograph y Coordinator Start: 03-19-2021 Mammography China Raygoza MD Work Phone: Start: 04-20-2018 Colonoscopy China Raygoza MD Work Phone: Plan of Treatment Date Care Activity Detail Author Start: 10-09-2029 Urine microalbumin profile [facility] Start: 04-07-2028 Colonoscopy Colonoscopy [facility] Start: 04-07-2028 Colorectal Cancer Screening Colorectal Cancer Screening [facility] Start: 06-18-2027 Lipid 1996 panel - Serum or Plasma Lipid Screening [facility] Start: 06-18-2027 LIPID SCREEN LIPID SCREEN [facility] Start: 06-18-2025 DIABETES SCREEN DIABETES SCREEN [facility] Start: 06-18-2025 Diabetes Screening Diabetes Screening [facility] Start: 02-25-2024 HPV TESTING HPV TESTING [facility] Start: 02-25-2024 PAP TESTING PAP TESTING [facility] Start: 04-20-2023 Colonoscopy COLONOSCOPY [facility] Start: 04-20-2023 COLORECTAL CANCER SCREENING COLORECTAL CANCER SCREENING [facility] Start: 03-22-2023 Mammography [facility] Start: 01-03-2023 Covid-19 Vaccine ( season) Covid-19 Vaccine ( season) [facility] Start: 01-03-2023 Influenza vaccination Influenza Vaccine (#1) [facility] Start: 06-18-2022 End: 08-18-2022 25-hydroxyvitamin D3 [Mass/volume] in Serum or Plasma [facility] Work Phone: Immunizations Immunization Date Immunization Notes Care Provider Fa danielito 03-01-2022 influenza virus vacc ine, unspecified formulation Leticia Boles PA-C Work Phone: [facility] 10-10-2019 tetanus toxoid, redu kim diphtheria toxoid, and acellular pertussis vaccine, adsorbed China Raygoza MD Work Phone: [facility] 02-03-2019 Influenza, injectabl e, Madin Karen Canine Kidney, preservative free, quadrivalent China Raygoza MD Work Phone: [facility] 02-02-2018 Influenza, injectabl e, Madin [place] Canine Kidney, preservative free, quadrivalent China Raygoza MD Work Phone: [facility] 02-14-2016 influenza, seasonal, injectable China Raygoza MD Work Phone: [facility] Payers Date Payer Category Payer Unknown [id number] 2020 Unknown [id number] Social History Date Type Detail Facility Start: 03-22-2022 Tobacco smoking stat us [facility] Never smoked tobacco [facility] Start: 03-22-2022 Tobacco use and exposure Smokeless tobacco non-user [facility] Start: 03-22-2022 End: 02-05-2023 Alcohol intake Current drinker of alcohol (finding) [facility] Start: 01-17-2017 Alcohol Comment Occasionally [facility] Start: 1970 Sex Assigned At Not on file [facility] Start: 02-05-2023 History of Social function [facility] Start: 02-05-2023 Tobacco use panel [facility] National Score (1-10 0), lower number is lower risk 62 [facility] Clinical Notes 10-20-2012 to 04-30-2023 Telephone Encounter - Zoe Peterson MD - 04/08/2023 3:36 PM Nicole Foss RN - 04/07/2023 8:31 AM Nicole Foss RN - 04/07/2023 8:01 AM EST Note Date & Type Note Facility 04-30-2023 Note HNO ID: [id number] Author: China Tomlinson MD Service: ? Author Type: Physician Type: Progress Notes Filed: 04/30/2023 10:10 AM Note Text: Bibi is a 52 year old who presents for an annual gynecologic exam without complaints. Postmenopausal: Yes HRT use: No. Last Pap: 03/02/2019 normal HPV: 03/01/2019 negative History of abnormal pap: No Last mammogram: 2022 normal History of abnormal mammogram: No Sexually active: Yes History of STDS: None Pain with intercourse: No Postcoital bleeding: No Hot flashes: No Night sweats: No Vaginal dryness: No Exercise: walking Diet: balanced OB History T3 L3 SAB3 IAB0 Ectopic0 Multiple0 Live Births0 [employer] History LMP: 10/03/2014 (Exact Date), Ablation Age at Menarche: Age at First : Age at Menopause: [employer] Work[employer] History Comments: Sexual Activity: Yes; Male Contraception: Vasectomy PAST MEDICAL HISTORY Diagnosis Date Abdominal pain, unspecified site Resolved Allergic gastroenteritis Allergic rhinitis Anemia Avulsion fracture Cardiac murmur Cervicalgia Chronic sinusitis Diarrhea Esophagitis, unspecified Essential hypertension Eustachian tube dysfunction Folliculitis Fracture of great toe right toe Generalized anxiety disorder Generalized anxiety disorder GERD (gastroesophageal reflux disease) Goiter Headaches Hypothyroidism IBS (irritable bowel syndrome) Malaise and fatigue Migraines Nausea alone Otalgia Right arm pain Rosacea Unspecified hypothyroidism Urine frequency Vitamin D deficiency PAST SURGICAL HISTORY Procedure Laterality Date BIOPSY BREAST OPEN INCISIONAL Right 12/19/2015 Bx of breast, incisional COLONOSCOPY FLX DX W/COLLJ SPEC WHEN PFRMD 05/03/2013 Colonoscopy COLONOSCOPY FLX DX W/COLLJ SPEC WHEN PFRMD 04/20/2018 repeat 5 years COLONOSCOPY SCREENING 04/07/2023 next colonoscopy due in 5 years ENDOMETRIAL ABLTJ THERMAL W/O HYSTEROSCOPIC GUID 04/13/2013 ESOPHAGOGASTRODUODENOSCOPY TRANSORAL DIAGNOSTIC 11/14/2003 EGD LAPS ABD PRTMANDOMENTUM DX W/WO SPEC BR/WA SPX Laparoscopy PAST SURGICAL HISTORY OF Left 2011 Hallux limitus TONSILLECTOMY PRIMARY/SECONDARY Tonsillectomy FAMILY HISTORY Problem Relation Age of Onset Hypertension Mother ULCERS/hypercholestremia other (epilipsy) Mother Hypertension Father HYPERCHOLESTREMIA Melanoma Father ear other (HYPOTHYRODISM) Sister Arthritis Sister Neck and Back Surgery other (HYPOTHYROIDISM) Sister Heart Paternal Grandmother Heart Paternal Grandfather [place] SOCIAL HISTORY Social History Tobacco Use Smoking status: Never Smokeless tobacco: Never Vaping Use Vaping Use: Never used Substance Use Topics Alcohol use: Yes Comment: Occasionally Drug use: No REVIEW OF SYSTEMS Abdomen: No abdominal pain, nausea, vomiting, diarrhea, or constipation. No bloating, early satiety, indigestion, or increased flatulence. Bladder: No dysuria, gross hematuria, urinary frequency, units++ urgency- but drinks a lot of water. Breast: No breast lumps, nipple d/c, overlying skin changes, redness or skin retraction Allergies and current medication updated:Yes EXAM: BP 120/74 Ht 5' 5 (1.65m) Wt 221 lb (100.2kg) LMP 10/03/2014 BMI 36.78 kg/(m2). GENERAL: pleasant, female in no apparent distress HEENT: Normocephalic, atraumatic, mucus membranes moist, and no lesions NECK: Supple, full range of motion, no adenopathy, and thyroid normal DERMATOLOGY: Normal, without lesions, non-icteric, and non-hirsute BREAST: soft, non-tender, symmetric, no dominant mass, normal nipple-areolar complex, no lymphadenopathy, and no nipple discharge ABDOMEN: soft, non-tender, and no masses PELVIC: external genitalia normal, normal Bartholin's glands, urethra, Cecilton's glands, no vulvar lesions, no cervical lesions, good vaginal support, physiologic discharge present, normal appearing perineal body and perianal region BIMANUAL: uterus normal size, shape and consistency, no adnexal masses, and non-tender RECTOVAGINAL: deferred. NEURO: alert and oriented x3,exam grossly non-focal EXTREMITIES: normal ASSESSMENT/PLAN: 1) Health maintenance: Pap/HPV up to date. Mammogram ordered Mammogram up to date Nutrition, exercise and routine health maintenance exams reviewed. Calcium/Vitamin D supplementation information provided. Colon cancer screening: up to date with screening 2) Follow up one year or sooner as needed China Ingram MD [facility] 04-17-2023 Note HNO ID: [id number] Author: Yi Zhu RT(R) Service: ? Author Type: Test Borer Type: Progress Notes Filed: 04/17/2023 2:41 PM Note Text: Radiology Service Progress Note PATIENT NAME: Lillian Taylor DATE OF SERVICE: April 17, 2023 TIME: 2:40 PM PATIENT IDENTITY VERIFICATION COMPLETED USING TWO (2) IDENTIFIERS: Name and Date of confirmed by patient verbally. FALL SCREENING: Has the patient had 2 falls in the last year or 1 fall with injury or currently using an Ambulatory Assistive Device (Walker, Cane, Wheelchair, Crutches, etc.)? No PATIENT GENDER DATA: Female. status: : No status: NO. PATIENT RELEVANT IMPLANT DATA REVIEWED: Not Applicable RADIOLOGY DEPARTMENT: Mammography PERIPHERAL IV DATA: Not applicable SIGNED BY: RT Gwyn(R) April 17, 2023 2:40 PM [facility] 04-08-2023 Miscellaneous Notes Tried to contact patient, voicemail only had number as identifier. She is s/p colonoscopy 04/07/2023 with findings of < 1cm tubular adenoma of right colon. She will require follow up surveillance colonoscopy in 5 years. HM updated (confirmed) and recall letter generated. documented in this encounter [facility] 04-07-2023 Nurse Note Awakens easily when spoken to, denies pain or nausea at present, continues to rest on left side, not interested in snack or drink yet, will continue to rest. Patient received in phase II via cart in left lateral position, eyes closed, responsive to verbal and tactile stimuli, skin warm and dry, respirations regular and unlabored, abdomen softly distended, no grimacing with light palpation. Resting quietly on left side. documented in this encounter [facility] 04-07-2023 History and physical note UPDATED PROCEDURAL SEDATION HISTORY AND PHYSICAL EXAMINATION SERVICE DATE: 04/07/2023 SERVICE TIME: 7:21 PHYSICAL EXAM MUST BE COMPLETED ON ADMISSION PROCEDURE: colonoscopy, possible biopsies Procedure Indications: family history of precancerous colon polyps The History and Physical (completed in the past 30 days) has been reviewed and the patient has been examined. The contents accurately reflect the patient's condition with the following additions or revisions since the H&P was completed. ASA Class: ASA Class:: Patient with mild systemic disease Examination indicates no changes. AIRWAY: Airway Visualization of Uvula: Yes Mouth opening greater than 2 fingerbreadths: Yes Neck Full Range of Motion: Yes LUNGS: Lungs clear to auscultation CARDIAC: Regular rhythm,Regular rate Provisional Diagnosis/Treatment Plan: colonoscopy, possible bipsies SEDATION GOAL: Moderate This H&P can be found in the Electronic Medical Record. SIGNATURE: Zoe Peterson MD PATIENT NAME: Lillian Taylor DATE: April 07, 2023 TIME: 7:33 AM Source Note - Zoe Peterson MD - 04/07/2023 8:15 AM EST HISTORY AND PHYSICAL Lillian Taylor 1970 REFERRING PHYSICIAN: No ref. provider found CHIEF COMPLAINT: Consult (Colonoscopy) HPI: The patient is a 52 year old female referred for endoscopy. Lillian notes no colon complaints. Patient denies any change in bowel habits, weight changes, blood in stools, black tarry stools or abdominal pain. NOTES family history of colon polyps. The patient notes no upper GI complaints. Lillian has undergone prior endoscopy. Last colonoscopy 04/20/[address] Mckeon under conscious sedation. No concerning findings at that time. Repeat colonoscopy was recommended in 5 years. Patient denies chest pain, shortness of breath or recent hospitalizations. Denies problems with sedation in the past. PAST MEDICAL HISTORY PAST MEDICAL HISTORY Diagnosis Date Abdominal pain, unspecified site Resolved Allergic gastroenteritis Allergic rhinitis Anemia Avulsion fracture Cardiac murmur Cervicalgia Chronic sinusitis Diarrhea Esophagitis, unspecified Essential hypertension Eustachian tube dysfunction Folliculitis Fracture of great toe right toe Generalized anxiety disorder Generalized anxiety disorder GERD (gastroesophageal reflux disease) Goiter Headaches Hypothyroidism IBS (irritable bowel syndrome) Malaise and fatigue Migraines Nausea alone Otalgia Right arm pain Rosacea Unspecified hypothyroidism Urine frequency Vitamin D deficiency PAST SURGICAL HISTORY PAST SURGICAL HISTORY Procedure Laterality Date BIOPSY BREAST OPEN INCISIONAL Right 12/19/2015 Bx of breast, incisional COLONOSCOPY FLX DX W/COLLJ SPEC WHEN PFRMD 05/03/13 Colonoscopy COLONOSCOPY FLX DX W/COLLJ SPEC WHEN PFRMD 04/20/2018 repeat 5 years ENDOMETRIAL ABLTJ THERMAL W/O HYSTEROSCOPIC GUID 04/13/13 ESOPHAGOGASTRODUODENOSCOPY TRANSORAL DIAGNOSTIC 11/14/03 EGD LAPS ABD PRTM&OMENTUM DX W/WO SPEC BR/WA SPX Laparoscopy PAST SURGICAL HISTORY OF Left 11 Hallux limitus TONSILLECTOMY PRIMARY/SECONDARY <AGE 10 Tonsillectomy CURRENT MEDICATIONS Current Outpatient Medications Medication Sig Magnesium 250 mg tab Take 250 mg by mouth. zinc sulfate (ZINC-220) 220 mg (50 mg zinc) capsule Take 220 mg by mouth once daily. Ascorbic Acid (VITAMIN C) 100 mg tablet Take 100 mg by mouth once daily. busPIRone (BUSPAR) 10 mg tablet Take 10 mg by mouth two times a day. ramipril (ALTACE) 10 mg capsule Take 10 mg by mouth once daily. nebivolol (BYSTOLIC) 5 mg tablet Take 5 mg by mouth once daily. fluticasone propionate (FLONASE ALLERGY RELIEF NASAL) Use in the nose. cholecalciferol, vitamin D3, (DIALYVITE VITAMIN D ORAL) Take 50 mcg by mouth. [id number] (REFRESH DIGITAL) 0.5-1-0.5 % drop Use in eyes. levothyroxine (SYNTHROID) 150 mcg tablet Daily, and MWF takes an extra 25mcg (Patient taking differently: Take 1.37 mcg by mouth once daily. Daily, and MWF takes an extra 25mcg) ACETAMINOPHEN (TYLENOL ORAL) Take 2 tablets by mouth as needed. loratadine (CLARITIN) 10 mg tablet Take 10 mg by mouth once daily. (Patient not taking: Reported on 02/05/2023) clobetasol (TEMOVATE) 0.05 % ointment Apply 1 application to affected area twice daily. Thin coat to affected area BID x 6 weeks then once per week for mainentance (Patient not taking: Reported on 03/22/2022) No current facility-administered medications for this visit. ALLERGIES: Animal Dander, Environmental [Other], and Mold Spores PERSONAL HISTORY: SOCIAL HISTORY Social History Tobacco Use Smoking status: Never Smokeless tobacco: Never Vaping Use Vaping Use: Never used Substance Use Topics Alcohol use: Yes Comment: Occasionally Drug use: No FAMILY HISTORY: FAMILY HISTORY FAMILY HISTORY Problem Relation Age of Onset Hypertension Mother ULCERS/hypercholestremia other (epilipsy) Mother Hypertension Father HYPERCHOLESTREMIA Melanoma Father ear other (HYPOTHYRODISM) Sister Arthritis Sister Neck and Back Surgery other (HYPOTHYROIDISM) Sister Heart Paternal Grandmother Heart Paternal Grandfather [place] REVIEW OF SYMPTOMS: The review of systems data was entered by the nurse and reviewed by fl Nursing Notes: Laura Harris LPN 02/05/2023 3:08 PM Signed REVIEW OF SYSTEMS: General: The patient denies fatigue, denies weight loss, denies weight gain, denies feeling hot, and denies feelings of cold. Eyes: The patient denies glaucoma, denies eye injury/surgery, wears glasses or contacts. Ear/Nose/Throat: The patient NOTES allergies, denies hayfever, denies ear infections, and denies bloody noses. Cardiovascular: The patient denies chest pain, denies heart disease, NOTES high blood pressure,denies cardiac stent, denies prior heart attack, denies irregular heart beat, denies high cholesterol, denies poor circulation, denies heart failure, other cardiac issues, denies claudication, denies cold feet, denies peripheral arterial stent. Respiratory: The patient denies tuberculosis, denies pneumonia, denies frequent cough, denies pulmonary embolism, denies shortness of breath, and denies coughing up blood. Gastrointestinal: The patient denies difficulty swallowing, denies acid reflux, denies ulcers, denies vomiting, denies jaundice/hepatitis, denies gallbladder problems, denies black or tarry stools, denies hemorrhoids, denies bleeding from rectum, denies diverticulitis, denies constipation, denies diarrhea, denies loss of stool control, and denies hernias. Kidney/Bladder: The patient denies kidney stones, denies urine infections, and denies bloody urine. Skin: The patient denies a history of skin cancer, denies bleeding/changing moles, and denies a history of skin rash. Neurologic: The patient denies a history of epilepsy/convulsions, denies headaches, denies head/spinal injuries, and denies stroke/TIA. Psychiatric: The patient denies psychiatric medications, denies depression, and denies voices, denies substance abuse. Endocrine: The patient NOTES thyroid disorders, denies diabetes, and denies hormonal problems. Hematologic: The patient denies a history of bruising, denies bleeding, and denies anemia, denies blood clots. Infections: The patient denies a history of measles and mumps, denies rheumatic fever, and denies sexually transmitted diseases. Musculoskeletal: The patient denies back pain/injury, denies back problems, denies sciatica, denies knee/foot trouble, denies arthritis, or denies gout. When was patient's last Mammogram screening? 2021 Last Colonoscopy: 2017 Laura Harris LPN I have confirmed and edited as necessary, the PFSH and ROS obtained by others. Leticia Boles PA-C PHYSICAL EXAMINATION: General: The patient is 52 year old female, well nourished, well hydrated in no acute distress. The patient is oriented to time, place, and person. VITALS: Blood pressure 118/86, pulse 65, temperature 36.4 C (97.5 F), height 165.1 cm (5' 5 ), weight 98.6 kg (217 lb 6.4 oz), last menstrual period 10/03/2014, SpO2 100 %. Body mass index is 36.18 kg/m . HEENT: Normal cephalic, ataumatic, pupils are equally round, sclera are anicteric, mucous membranes are moist, oropharynx is clear. Neck has no masses, asymmetry or lymphadenopathy. Respiratory: Clear to auscultation and percussion. Normal respiratory excursion and pattern. Cardiac: Examination is regular rate and rhythm. Normal S1/S2 Abdominal exam: Soft, nontender, with no palpable masses. No hepatosplenomegaly. No palpable hernias. Extremities: no clubbing, cyanosis or edema. No adenopathy. LABORATORY VALUES: As Noted RADIOLOGIC STUDIES: As Noted Assessment IMPRESSION: encounter for high-risk surveillance colonoscopy, family history of colon polyps PLAN: I have reviewed my findings with the surgeon. Will plan for lower endoscopy. We discussed the risks and benefits of the planned endoscopy. I have informed the patient that complications can occur including failure to complete the endoscopy and perforation. The patient had the opportunity to ask questions concerning the planned endoscopy. My staff has also explained the procedure to the patient in understandable terms and has given the patient printed material concerning the procedure. The patient freely consents to surgery. I plan to use Miralax bowel preparation I have explained to the patient the difference between IV conscious sedation and MAC anesthesia - and I have offered either, according to the patient's wishes. I have explained that with IV conscious sedation there is no anesthesia provider available and therefore there is a limitation of the amount of IV medications that can be given and that the patient may wake up in the middle of the procedure and/or experience pain/discomfort during the procedure. Further discussion was done and the patient was given the opportunity to ask questions and all questions were answered. The patient chooses IV conscious sedation, tolerated well previously Diagnoses: (Z12.11) Encounter for screening for malignant neoplasm of colon (primary encounter diagnosis) (Z83.719) Family history of colonic polyps Consultation requested by Dr. Barroso for an opinion regarding colonoscopy. My final recommendations will be communicated back to the requesting physician by way of shared Medical record or letter to requesting physician via US mail. Leticia Boles PA-C HISTORY AND PHYSICAL Lillian Taylor 1970 REFERRING PHYSICIAN: No ref. provider found CHIEF COMPLAINT: Consult (Colonoscopy) HPI: The patient is a 52 year old female referred for endoscopy. Lillian notes no colon complaints. Patient denies any change in bowel habits, weight changes, blood in stools, black tarry stools or abdominal pain. NOTES family history of colon polyps. The patient notes no upper GI complaints. Lillian has undergone prior endoscopy. Last colonoscopy 04/20/[address] Mckeon under conscious sedation. No concerning findings at that time. Repeat colonoscopy was recommended in 5 years. Patient denies chest pain, shortness of breath or recent hospitalizations. Denies problems with sedation in the past. PAST MEDICAL HISTORY PAST MEDICAL HISTORY Diagnosis Date Abdominal pain, unspecified site Resolved Allergic gastroenteritis Allergic rhinitis Anemia Avulsion fracture Cardiac murmur Cervicalgia Chronic sinusitis Diarrhea Esophagitis, unspecified Essential hypertension Eustachian tube dysfunction Folliculitis Fracture of great toe right toe Generalized anxiety disorder Generalized anxiety disorder GERD (gastroesophageal reflux disease) Goiter Headaches Hypothyroidism IBS (irritable bowel syndrome) Malaise and fatigue Migraines Nausea alone Otalgia Right arm pain Rosacea Unspecified hypothyroidism Urine frequency Vitamin D deficiency PAST SURGICAL HISTORY PAST SURGICAL HISTORY Procedure Laterality Date BIOPSY BREAST OPEN INCISIONAL Right 12/19/2015 Bx of breast, incisional COLONOSCOPY FLX DX W/COLLJ SPEC WHEN PFRMD 05/03/13 Colonoscopy COLONOSCOPY FLX DX W/COLLJ SPEC WHEN PFRMD 04/20/2018 repeat 5 years ENDOMETRIAL ABLTJ THERMAL W/O HYSTEROSCOPIC GUID 04/13/13 ESOPHAGOGASTRODUODENOSCOPY TRANSORAL DIAGNOSTIC 11/14/03 EGD LAPS ABD PRTM&OMENTUM DX W/WO SPEC BR/WA SPX Laparoscopy PAST SURGICAL HISTORY OF Left 11 Hallux limitus TONSILLECTOMY PRIMARY/SECONDARY <AGE 10 Tonsillectomy CURRENT MEDICATIONS Current Outpatient Medications Medication Sig Magnesium 250 mg tab Take 250 mg by mouth. zinc sulfate (ZINC-220) 220 mg (50 mg zinc) capsule Take 220 mg by mouth once daily. Ascorbic Acid (VITAMIN C) 100 mg tablet Take 100 mg by mouth once daily. busPIRone (BUSPAR) 10 mg tablet Take 10 mg by mouth two times a day. ramipril (ALTACE) 10 mg capsule Take 10 mg by mouth once daily. nebivolol (BYSTOLIC) 5 mg tablet Take 5 mg by mouth once daily. fluticasone propionate (FLONASE ALLERGY RELIEF NASAL) Use in the nose. cholecalciferol, vitamin D3, (DIALYVITE VITAMIN D ORAL) Take 50 mcg by mouth. [id number] (REFRESH DIGITAL) 0.5-1-0.5 % drop Use in eyes. levothyroxine (SYNTHROID) 150 mcg tablet Daily, and MWF takes an extra 25mcg (Patient taking differently: Take 1.37 mcg by mouth once daily. Daily, and MWF takes an extra 25mcg) ACETAMINOPHEN (TYLENOL ORAL) Take 2 tablets by mouth as needed. loratadine (CLARITIN) 10 mg tablet Take 10 mg by mouth once daily. (Patient not taking: Reported on 02/05/2023) clobetasol (TEMOVATE) 0.05 % ointment Apply 1 application to affected area twice daily. Thin coat to affected area BID x 6 weeks then once per week for mainentance (Patient not taking: Reported on 03/22/2022) No current facility-administered medications for this visit. ALLERGIES: Animal Dander, Environmental [Other], and Mold Spores PERSONAL HISTORY: SOCIAL HISTORY Social History Tobacco Use Smoking status: Never Smokeless tobacco: Never Vaping Use Vaping Use: Never used Substance Use Topics Alcohol use: Yes Comment: Occasionally Drug use: No FAMILY HISTORY: FAMILY HISTORY FAMILY HISTORY Problem Relation Age of Onset Hypertension Mother ULCERS/hypercholestremia other (epilipsy) Mother Hypertension Father HYPERCHOLESTREMIA Melanoma Father ear other (HYPOTHYRODISM) Sister Arthritis Sister Neck and Back Surgery other (HYPOTHYROIDISM) Sister Heart Paternal Grandmother Heart Paternal Grandfather [place] REVIEW OF SYMPTOMS: The review of systems data was entered by the nurse and reviewed by fl Nursing Notes: Laura Harris LPN 02/05/2023 3:08 PM Signed REVIEW OF SYSTEMS: General: The patient denies fatigue, denies weight loss, denies weight gain, denies feeling hot, and denies feelings of cold. Eyes: The patient denies glaucoma, denies eye injury/surgery, wears glasses or contacts. Ear/Nose/Throat: The patient NOTES allergies, denies hayfever, denies ear infections, and denies bloody noses. Cardiovascular: The patient denies chest pain, denies heart disease, NOTES high blood pressure,denies cardiac stent, denies prior heart attack, denies irregular heart beat, denies high cholesterol, denies poor circulation, denies heart failure, other cardiac issues, denies claudication, denies cold feet, denies peripheral arterial stent. Respiratory: The patient denies tuberculosis, denies pneumonia, denies frequent cough, denies pulmonary embolism, denies shortness of breath, and denies coughing up blood. Gastrointestinal: The patient denies difficulty swallowing, denies acid reflux, denies ulcers, denies vomiting, denies jaundice/hepatitis, denies gallbladder problems, denies black or tarry stools, denies hemorrhoids, denies bleeding from rectum, denies diverticulitis, denies constipation, denies diarrhea, denies loss of stool control, and denies hernias. Kidney/Bladder: The patient denies kidney stones, denies urine infections, and denies bloody urine. Skin: The patient denies a history of skin cancer, denies bleeding/changing moles, and denies a history of skin rash. Neurologic: The patient denies a history of epilepsy/convulsions, denies headaches, denies head/spinal injuries, and denies stroke/TIA. Psychiatric: The patient denies psychiatric medications, denies depression, and denies voices, denies substance abuse. Endocrine: The patient NOTES thyroid disorders, denies diabetes, and denies hormonal problems. Hematologic: The patient denies a history of bruising, denies bleeding, and denies anemia, denies blood clots. Infections: The patient denies a history of measles and mumps, denies rheumatic fever, and denies sexually transmitted diseases. Musculoskeletal: The patient denies back pain/injury, denies back problems, denies sciatica, denies knee/foot trouble, denies arthritis, or denies gout. When was patient's last Mammogram screening? 2021 Last Colonoscopy: 2017 Laura Harris LPN I have confirmed and edited as necessary, the PFSH and ROS obtained by others. Leticia Boles PA-C PHYSICAL EXAMINATION: General: The patient is 52 year old female, well nourished, well hydrated in no acute distress. The patient is oriented to time, place, and person. VITALS: Blood pressure 118/86, pulse 65, temperature 36.4 C (97.5 F), height 165.1 cm (5' 5 ), weight 98.6 kg (217 lb 6.4 oz), last menstrual period 10/03/2014, SpO2 100 %. Body mass index is 36.18 kg/m . HEENT: Normal cephalic, ataumatic, pupils are equally round, sclera are anicteric, mucous membranes are moist, oropharynx is clear. Neck has no masses, asymmetry or lymphadenopathy. Respiratory: Clear to auscultation and percussion. Normal respiratory excursion and pattern. Cardiac: Examination is regular rate and rhythm. Normal S1/S2 Abdominal exam: Soft, nontender, with no palpable masses. No hepatosplenomegaly. No palpable hernias. Extremities: no clubbing, cyanosis or edema. No adenopathy. LABORATORY VALUES: As Noted RADIOLOGIC STUDIES: As Noted Assessment IMPRESSION: encounter for high-risk surveillance colonoscopy, family history of colon polyps PLAN: I have reviewed my findings with the surgeon. Will plan for lower endoscopy. We discussed the risks and benefits of the planned endoscopy. I have informed the patient that complications can occur including failure to complete the endoscopy and perforation. The patient had the opportunity to ask questions concerning the planned endoscopy. My staff has also explained the procedure to the patient in understandable terms and has given the patient printed material concerning the procedure. The patient freely consents to surgery. I plan to use Miralax bowel preparation I have explained to the patient the difference between IV conscious sedation and MAC anesthesia - and I have offered either, according to the patient's wishes. I have explained that with IV conscious sedation there is no anesthesia provider available and therefore there is a limitation of the amount of IV medications that can be given and that the patient may wake up in the middle of the procedure and/or experience pain/discomfort during the procedure. Further discussion was done and the patient was given the opportunity to ask questions and all questions were answered. The patient chooses IV conscious sedation, tolerated well previously Diagnoses: (Z12.11) Encounter for screening for malignant neoplasm of colon (primary encounter diagnosis) (Z83.719) Family history of colonic polyps Consultation requested by Dr. Barroso for an opinion regarding colonoscopy. My final recommendations will be communicated back to the requesting physician by way of shared Medical record or letter to requesting physician via [place] mail. Leticia Boles PA-C documented in this encounter [facility] 02-05-2023 Note HNO ID: [id number] Author: Leticia Boles PA-C Service: ? Author Type: Physician Curriculum Consultant Type: Progress Notes Filed: 02/10/2023 11:59 AM Note Text: HISTORY AND PHYSICAL Lillian Taylor 1970 REFERRING PHYSICIAN: No ref. provider found CHIEF COMPLAINT: Consult (Colonoscopy) HPI: The patient is a 52 year old female referred for endoscopy. Lillian notes no colon complaints. Patient denies any change in bowel habits, weight changes, blood in stools, black tarry stools or abdominal pain. NOTES family history of colon polyps. The patient notes no upper GI complaints. Lillian has undergone prior endoscopy. Last colonoscopy 04/20/[address] Mckeon under conscious sedation. No concerning findings at that time. Repeat colonoscopy was recommended in 5 years. Patient denies chest pain, shortness of breath or recent hospitalizations. Denies problems with sedation in the past. PAST MEDICAL HISTORY Diagnosis Date Abdominal pain, unspecified site Resolved Allergic gastroenteritis Allergic rhinitis Anemia Avulsion fracture Cardiac murmur Cervicalgia Chronic sinusitis Diarrhea Esophagitis, unspecified Essential hypertension Eustachian tube dysfunction Folliculitis Fracture of great toe right toe Generalized anxiety disorder Generalized anxiety disorder GERD (gastroesophageal reflux disease) Goiter Headaches Hypothyroidism IBS (irritable bowel syndrome) Malaise and fatigue Migraines Nausea alone Otalgia Right arm pain Rosacea Unspecified hypothyroidism Urine frequency Vitamin D deficiency PAST SURGICAL HISTORY Procedure Laterality Date BIOPSY BREAST OPEN INCISIONAL Right 12/19/2015 Bx of breast, incisional COLONOSCOPY FLX DX W/COLLJ SPEC WHEN PFRMD 05/03/13 Colonoscopy COLONOSCOPY FLX DX W/COLLJ SPEC WHEN PFRMD 04/20/2018 repeat 5 years ENDOMETRIAL ABLTJ THERMAL W/O HYSTEROSCOPIC GUID 04/13/13 ESOPHAGOGASTRODUODENOSCOPY TRANSORAL DIAGNOSTIC 11/14/03 EGD LAPS ABD PRTMANDOMENTUM DX W/WO SPEC BR/WA SPX Laparoscopy PAST SURGICAL HISTORY OF Left 11 Hallux limitus TONSILLECTOMY PRIMARY/SECONDARY Tonsillectomy Current Outpatient Medications Medication Sig Magnesium 250 mg tab Take 250 mg by mouth. zinc sulfate (ZINC-220) 220 mg (50 mg zinc) capsule Take 220 mg by mouth once daily. Ascorbic Acid (VITAMIN C) 100 mg tablet Take 100 mg by mouth once daily. busPIRone (BUSPAR) 10 mg tablet Take 10 mg by mouth two times a day. ramipril (ALTACE) 10 mg capsule Take 10 mg by mouth once daily. nebivolol (BYSTOLIC) 5 mg tablet Take 5 mg by mouth once daily. fluticasone propionate (FLONASE ALLERGY RELIEF NASAL) Use in the nose. cholecalciferol, vitamin D3, (DIALYVITE VITAMIN D ORAL) Take 50 mcg by mouth. [id number] (REFRESH DIGITAL) 0.5-1-0.5 % drop Use in eyes. levothyroxine (SYNTHROID) 150 mcg tablet Daily, and MWF takes an extra 25mcg (Patient taking differently: Take 1.37 mcg by mouth once daily. Daily, and MWF takes an extra 25mcg) ACETAMINOPHEN (TYLENOL ORAL) Take 2 tablets by mouth as needed. loratadine (CLARITIN) 10 mg tablet Take 10 mg by mouth once daily. (Patient not taking: Reported on 02/05/2023) clobetasol (TEMOVATE) 0.05 % ointment Apply 1 application to affected area twice daily. Thin coat to affected area BID x 6 weeks then once per week for mainentance (Patient not taking: Reported on 03/22/2022) No current facility-administered medications for this visit. ALLERGIES: Animal Dander, Environmental [Other], and Mold Spores PERSONAL HISTORY: Social History Tobacco Use Smoking status: Never Smokeless tobacco: Never Vaping Use Vaping Use: Never used Substance Use Topics Alcohol use: Yes Comment: Occasionally Drug use: No FAMILY HISTORY: FAMILY HISTORY Problem Relation Age of Onset Hypertension Mother ULCERS/hypercholestremia other (epilipsy) Mother Hypertension Father HYPERCHOLESTREMIA Melanoma Father ear other (HYPOTHYRODISM) Sister Arthritis Sister Neck and Back Surgery other (HYPOTHYROIDISM) Sister Heart Paternal Grandmother Heart Paternal Grandfather [place] REVIEW OF SYMPTOMS: The review of systems data was entered by the nurse and reviewed by me Nursing Notes: Laura Harris LPN 02/05/2023 3:08 PM Signed REVIEW OF SYSTEMS: General: The patient denies fatigue, denies weight loss, denies weight gain, denies feeling hot, and denies feelings of cold. Eyes: The patient denies glaucoma, denies eye injury/surgery, wears glasses or contacts. Ear/Nose/Throat: The patient NOTES allergies, denies hayfever, denies ear infections, and denies bloody noses. Cardiovascular: The patient denies chest pain, denies heart disease, NOTES high blood pressure,denies cardiac stent, denies prior heart attack, denies irregular heart beat, denies high cholesterol, denies poor circulation, denies heart failure, other cardiac issues, denies claudication, jan (more content not included)... [facility] 02-05-2023 History of Presen t illness Narrative HISTORY AND PHYSICAL Lillian Taylor 1970 REFERRING PHYSICIAN: No ref. provider found CHIEF COMPLAINT: Consult (Colonoscopy) HPI: The patient is a 52 year old female referred for endoscopy. Lillian notes no colon complaints. Patient denies any change in bowel habits, weight changes, blood in stools, black tarry stools or abdominal pain. NOTES family history of colon polyps. The patient notes no upper GI complaints. Lillian has undergone prior endoscopy. Last colonoscopy 04/20/[address] Mckeon under conscious sedation. No concerning findings at that time. Repeat colonoscopy was recommended in 5 years. Patient denies chest pain, shortness of breath or recent hospitalizations. Denies problems with sedation in the past. PAST MEDICAL HISTORY Diagnosis Date Abdominal pain, unspecified site Resolved Allergic gastroenteritis Allergic rhinitis Anemia Avulsion fracture Cardiac murmur Cervicalgia Chronic sinusitis Diarrhea Esophagitis, unspecified Essential hypertension Eustachian tube dysfunction Folliculitis Fracture of great toe right toe Generalized anxiety disorder Generalized anxiety disorder GERD (gastroesophageal reflux disease) Goiter Headaches Hypothyroidism IBS (irritable bowel syndrome) Malaise and fatigue Migraines Nausea alone Otalgia Right arm pain Rosacea Unspecified hypothyroidism Urine frequency Vitamin D deficiency PAST SURGICAL HISTORY Procedure Laterality Date BIOPSY BREAST OPEN INCISIONAL Right 12/19/2015 Bx of breast, incisional COLONOSCOPY FLX DX W/COLLJ SPEC WHEN PFRMD 05/03/13 Colonoscopy COLONOSCOPY FLX DX W/COLLJ SPEC WHEN PFRMD 04/20/2018 repeat 5 years ENDOMETRIAL ABLTJ THERMAL W/O HYSTEROSCOPIC GUID 04/13/13 ESOPHAGOGASTRODUODENOSCOPY TRANSORAL DIAGNOSTIC 11/14/03 EGD LAPS ABD PRTM&OMENTUM DX W/WO SPEC BR/WA SPX Laparoscopy PAST SURGICAL HISTORY OF Left 11 Hallux limitus TONSILLECTOMY PRIMARY/SECONDARY <AGE 10 Tonsillectomy Current Outpatient Medications Medication Sig Magnesium 250 mg tab Take 250 mg by mouth. zinc sulfate (ZINC-220) 220 mg (50 mg zinc) capsule Take 220 mg by mouth once daily. Ascorbic Acid (VITAMIN C) 100 mg tablet Take 100 mg by mouth once daily. busPIRone (BUSPAR) 10 mg tablet Take 10 mg by mouth two times a day. ramipril (ALTACE) 10 mg capsule Take 10 mg by mouth once daily. nebivolol (BYSTOLIC) 5 mg tablet Take 5 mg by mouth once daily. fluticasone propionate (FLONASE ALLERGY RELIEF NASAL) Use in the nose. cholecalciferol, vitamin D3, (DIALYVITE VITAMIN D ORAL) Take 50 mcg by mouth. [id number]-bffmnpl-[id number] (REFRESH DIGITAL) 0.5-1-0.5 % drop Use in eyes. levothyroxine (SYNTHROID) 150 mcg tablet Daily, and MWF takes an extra 25mcg (Patient taking differently: Take 1.37 mcg by mouth once daily. Daily, and MWF takes an extra 25mcg) ACETAMINOPHEN (TYLENOL ORAL) Take 2 tablets by mouth as needed. loratadine (CLARITIN) 10 mg tablet Take 10 mg by mouth once daily. (Patient not taking: Reported on 02/05/2023) clobetasol (TEMOVATE) 0.05 % ointment Apply 1 application to affected area twice daily. Thin coat to affected area BID x 6 weeks then once per week for mainentance (Patient not taking: Reported on 03/22/2022) No current facility-administered medications for this visit. ALLERGIES: Animal Dander, Environmental [Other], and Mold Spores PERSONAL HISTORY: Social History Tobacco Use Smoking status: Never Smokeless tobacco: Never Vaping Use Vaping Use: Never used Substance Use Topics Alcohol use: Yes Comment: Occasionally Drug use: No FAMILY HISTORY: FAMILY HISTORY Problem Relation Age of Onset Hypertension Mother ULCERS/hypercholestremia other (epilipsy) Mother Hypertension Father HYPERCHOLESTREMIA Melanoma Father ear other (HYPOTHYRODISM) Sister Arthritis Sister Neck and Back Surgery other (HYPOTHYROIDISM) Sister Heart Paternal Grandmother Heart Paternal Grandfather [place] REVIEW OF SYMPTOMS: The review of systems data was entered by the nurse and reviewed by me Nursing Notes: Laura HarrisALICIA 02/05/2023 3:08 PM Signed REVIEW OF SYSTEMS: General: The patient denies fatigue, denies weight loss, denies weight gain, denies feeling hot, and denies feelings of cold. Eyes: The patient denies glaucoma, denies eye injury/surgery, wears glasses or contacts. Ear/Nose/Throat: The patient NOTES allergies, denies hayfever, denies ear infections, and denies bloody noses. Cardiovascular: The patient denies chest pain, denies heart disease, NOTES high blood pressure,denies cardiac stent, denies prior heart attack, denies irregular heart beat, denies high cholesterol, denies poor circulation, denies heart failure, other cardiac issues, denies claudication, denies cold feet, denies peripheral arterial stent. Respiratory: The patient denies tuberculosis, denies pneumonia, denies frequent cough, denies pulmonary embolism, denies shortness of breath, and denies coughing up blood. Gastrointestinal: The patient denies difficulty swallowing, denies acid reflux, denies ulcers, denies vomiting, denies jaundice/hepatitis, denies gallbladder problems, denies black or tarry stools, denies hemorrhoids, denies bleeding from rectum, denies diverticulitis, denies constipation, denies diarrhea, denies loss of stool control, and denies hernias. Kidney/Bladder: The patient denies kidney stones, denies urine infections, and denies bloody urine. Skin: The patient denies a history of skin cancer, denies bleeding/changing moles, and denies a history of skin rash. Neurologic: The patient denies a history of epilepsy/convulsions, denies headaches, denies head/spinal injuries, and denies stroke/TIA. Psychiatric: The patient denies psychiatric medications, denies depression, and denies voices, denies substance abuse. Endocrine: The patient NOTES thyroid disorders, denies diabetes, and denies hormonal problems. Hematologic: The patient denies a history of bruising, denies bleeding, and denies anemia, denies blood clots. Infections: The patient denies a history of measles and mumps, denies rheumatic fever, and denies sexually transmitted diseases. Musculoskeletal: The patient denies back pain/injury, denies back problems, denies sciatica, denies knee/foot trouble, denies arthritis, or denies gout. When was patient's last Mammogram screening? 2021 Last Colonoscopy: 2017 Laura Harris LPN I have confirmed and edited as necessary, the PFSH and ROS obtained by others. Leticia Boles PA-C PHYSICAL EXAMINATION: General: The patient is 52 year old female, well nourished, well hydrated in no acute distress. The patient is oriented to time, place, and person. VITALS: Blood pressure 118/86, pulse 65, temperature 36.4 C (97.5 F), height 165.1 cm (5' 5 ), weight 98.6 kg (217 lb 6.4 oz), last menstrual period 10/03/2014, SpO2 100 %. Body mass index is 36.18 kg/m . HEENT: Normal cephalic, ataumatic, pupils are equally round, sclera are anicteric, mucous membranes are moist, oropharynx is clear. Neck has no masses, asymmetry or lymphadenopathy. Respiratory: Clear to auscultation and percussion. Normal respiratory excursion and pattern. Cardiac: Examination is regular rate and rhythm. Normal S1/S2 Abdominal exam: Soft, nontender, with no palpable masses. No hepatosplenomegaly. No palpable hernias. Extremities: no clubbing, cyanosis or edema. No adenopathy. LABORATORY VALUES: As Noted RADIOLOGIC STUDIES: As Noted Assessment IMPRESSION: encounter for high-risk surveillance colonoscopy, family history of colon polyps PLAN: I have reviewed my findings with the surgeon. Will plan for lower endoscopy. We discussed the risks and benefits of the planned endoscopy. I have informed the patient that complications can occur including failure to complete the endoscopy and perforation. The patient had the opportunity to ask questions concerning the planned endoscopy. My staff has also explained the procedure to the patient in understandable terms and has given the patient printed material concerning the procedure. The patient freely consents to surgery. I plan to use Miralax bowel preparation I have explained to the patient the difference between IV conscious sedation and MAC anesthesia - and I have offered either, according to the patient's wishes. I have explained that with IV conscious sedation there is no anesthesia provider available and therefore there is a limitation of the amount of IV medications that can be given and that the patient may wake up in the middle of the procedure and/or experience pain/discomfort during the procedure. Further discussion was done and the patient was given the opportunity to ask questions and all questions were answered. The patient chooses IV conscious sedation, tolerated well previously Diagnoses: (Z12.11) Encounter for screening for malignant neoplasm of colon (primary encounter diagnosis) (Z83.719) Family history of colonic polyps Consultation requested by Dr. Barroso for an opinion regarding colonoscopy. My final recommendations will be communicated back to the requesting physician by way of shared Medical record or letter to requesting physician via US mail. Leticia Boles PA-C documented in this encounter [facility] 02-05-2023 Nurse Note REVIEW OF SYSTEMS: General: The patient denies fatigue, denies weight loss, denies weight gain, denies feeling hot, and denies feelings of cold. Eyes: The patient denies glaucoma, denies eye injury/surgery, wears glasses or contacts. Ear/Nose/Throat: The patient NOTES allergies, denies hayfever, denies ear infections, and denies bloody noses. Cardiovascular: The patient denies chest pain, denies heart disease, NOTES high blood pressure,denies cardiac stent, denies prior heart attack, denies irregular heart beat, denies high cholesterol, denies poor circulation, denies heart failure, other cardiac issues, denies claudication, denies cold feet, denies peripheral arterial stent. Respiratory: The patient denies tuberculosis, denies pneumonia, denies frequent cough, denies pulmonary embolism, denies shortness of breath, and denies coughing up blood. Gastrointestinal: The patient denies difficulty swallowing, denies acid reflux, denies ulcers, denies vomiting, denies jaundice/hepatitis, denies gallbladder problems, denies black or tarry stools, denies hemorrhoids, denies bleeding from rectum, denies diverticulitis, denies constipation, denies diarrhea, denies loss of stool control, and denies hernias. Kidney/Bladder: The patient denies kidney stones, denies urine infections, and denies bloody urine. Skin: The patient denies a history of skin cancer, denies bleeding/changing moles, and denies a history of skin rash. Neurologic: The patient denies a history of epilepsy/convulsions, denies headaches, denies head/spinal injuries, and denies stroke/TIA. Psychiatric: The patient denies psychiatric medications, denies depression, and denies voices, denies substance abuse. Endocrine: The patient NOTES thyroid disorders, denies diabetes, and denies hormonal problems. Hematologic: The patient denies a history of bruising, denies bleeding, and denies anemia, denies blood clots. Infections: The patient denies a history of measles and mumps, denies rheumatic fever, and denies sexually transmitted diseases. Musculoskeletal: The patient denies back pain/injury, denies back problems, denies sciatica, denies knee/foot trouble, denies arthritis, or denies gout. When was patient's last Mammogram screening? 2021 Last Colonoscopy: 2017 Laura Harris LPN documented in this encounter [facility] 06-24-2022 Miscellaneous Notes Patient notified Yes, I agree she should not take the adipex if BP is elevated. Once BPs are controlled she can start if desired or we can consider a different medication if desired. Pt called and stated that she has decided not to start the Adipex. She had to go to the ED yesterday d/t a b/p while at work of 200/120. Pt then went to the ED and had a reading of 182/101. Pt stated that she went to her PCP yesterday after the ED and again today where her B/P was still 160/110. A new prescription was sent to her pharmacy for Ramipril this afternoon. Pt wanted you to be aware of this. Follow up appt canceled. Lily Wade LPN documented in this encounter [facility] 06-18-2022 Note HNO ID: [id number] Author: China Raygoza MD Service: ? Author Type: Physician Type: Progress Notes Filed: 06/18/2022 4:16 PM Note Text: WEIGHT MANAGEMENT APPOINTMENT : Patient Summary: Lillian Taylor is a 52 year old female with obesity who presents for an initial evaluation of her obesity and is interested in behavioral and pharmacological weight loss approaches. Primary reason for wanting obesity treatment : Lose weight and feel more comfortable. Has pain in feet. Feeling more fatigued. Overall goal: 155 lbs Weight History: She reports a family history of obesity and adult onset weight gain. She states her weight gain is related to the following factors, including . Obesigenic Medications: NO Contraception: Menopausal Diet: Quality of diet: 24hr recall suggests unhealthy diet. Characterization of diet:Unstructured, unhealthy snacking, excessive cravings, and increased consumption of sugar sweetened beverages. Director Toxicology of impaired eating habits:mindlessness Eating Disorder no Diet History: Past weight loss attempts? Weight watchers- lost 30lbs in one year. Obesity Related Comorbidities: Prior Weight Loss Surgery:No ACTIVE PROBLEM LIST Unspecified Hypothyroidism Goiter, Specified As Simple Anemia, Unspecified Abnormal Mammogram No history of AK, COPD, asthma, peptic ulcer dx, hyperlipidemia, gallstones, hypothyroidism, hypertension, cancer, DVT, PE, CVA, T2DM, gout, kidney stones, CKD and smoking history. PAST SURGICAL HISTORY Procedure Laterality Date BIOPSY BREAST OPEN INCISIONAL Right 12/19/2015 Bx of breast, incisional COLONOSCOPY FLX DX W/COLLJ SPEC WHEN PFRMD 05/03/13 Colonoscopy COLONOSCOPY FLX DX W/COLLJ SPEC WHEN PFRMD 04/20/2018 repeat 5 years ENDOMETRIAL ABLTJ THERMAL W/O HYSTEROSCOPIC GUID 04/13/13 ESOPHAGOGASTRODUODENOSCOPY TRANSORAL DIAGNOSTIC 11/14/03 EGD LAPS ABD PRTMANDOMENTUM DX W/WO SPEC BR/WA SPX Laparoscopy PAST SURGICAL HISTORY OF Left 11 Hallux limitus TONSILLECTOMY PRIMARY/SECONDARY Tonsillectomy Obesity ROS/ FHx GEN: Fatigue:yes CV: h/o palpitations/cardiac arrhythmia, CP:No PULM: Asthma:No GI: GERD:occasionally; Gallstones: No; Fatty liver disease:No; H/o hernia:No MSK: Joint Pain:Feet : Nephrolithiasis:No; Stress incontinence:No Symptoms of PCOS(women):No thyroid disorder (hypothyroidism since age 8) NEURO: Migraines/RUTLEDGE:No; H/o seizures: No Glaucoma:No; Cataracts No Symptoms of pseudotumor cerebri:No The physical systems reviewed reveal no pathological symptoms that are pertinent to this visit Family History Problem Relation Age of Onset Hypertension Mother ULCERS/hypercholestremia other (epilipsy) Mother Hypertension Father HYPERCHOLESTREMIA Melanoma Father ear other (HYPOTHYRODISM) Sister Arthritis Sister Neck and Back Surgery other (HYPOTHYROIDISM) Sister Heart Paternal Grandmother Heart Paternal Grandfather AK PREV: PAP UTD, Mammogram UTD and Colonoscopy UTD Social History Social History Tobacco Use Smoking status: Never Smokeless tobacco: Never Vaping Use Vaping Use: Never used Substance Use Topics Alcohol use: Yes Comment: Occasionally Drug use: No Occupation: schools [employer] BP 146/94 Ht 5' 5 (1.651 m) Wt 227 lb (103 kg) LMP 10/03/2014 (Exact Date) BMI 37.77 kg/m? NAD. Mixed central and gluteofemoral adiposity. Waist circumference not measured. No acanthosis, No supraclavicular adiposity. No dorsal adiposity. PERRL. Good dental hygiene RRR nl. s1s2 CTAB Abdomen Soft Small pannus Results: reviewed with the patient Impression: Lillian Taylor is a 52 year old female with Class II obesity (Body mass index is 37.77 kg/m?.) who has early onset obesity with several periods of weight loss followed by weight gain . The causes of her obesity are multifactorial, biological, psychological and social and environmental. Specific factors include increased consumption of high calorie/process foods, irregular eating patterns , and suboptimal physical activity. She has few weight-related medical comorbidities which increase her cardiovascular mortality risk. There are additional metabolic obesity complications including hypertension. Other medical conditions as above. Overall, it is clear that her quality of life is mildly compromised by her weight. It is likely a combination of weight loss therapies will be needed. She appears motivated today. Plan: -- Based on the severity and resistance of the obesity to more conservative weight loss approaches, I believe a pharmacotherapy intervention is the best and most appropriate [place] [facility] therapeutic option. Prescription instructions reviewed with patient as applicable. Potential red flag symptoms discussed with the patient. Reviewed appropriate action plan to take if red flag symptoms occur. Patient agreeable to treatment plan. Follow-up in 4 weeks Phentermine o (more content not included)... [facility] 06-18-2022 History of Presen t illness Narrative WEIGHT MANAGEMENT APPOINTMENT : Patient Summary: Lillian Taylor is a 52 year old female with obesity who presents for an initial evaluation of her obesity and is interested in behavioral and pharmacological weight loss approaches. Primary reason for wanting obesity treatment : Lose weight and feel more comfortable. Has pain in feet. Feeling more fatigued. Overall goal: 155 lbs Weight History: She reports a family history of obesity and adult onset weight gain. She states her weight gain is related to the following factors, including . Obesigenic Medications: NO Contraception: Menopausal Diet: Quality of diet: 24hr recall suggests unhealthy diet. Characterization of diet:Unstructured, unhealthy snacking, excessive cravings, and increased consumption of sugar sweetened beverages. Director Toxicology of impaired eating habits:mindlessness Eating Disorder no Diet History: Past weight loss attempts? Weight watchers- lost 30lbs in one year. Obesity Related Comorbidities: Prior Weight Loss Surgery:No ACTIVE PROBLEM LIST Unspecified Hypothyroidism Goiter, Specified As Simple Anemia, Unspecified Abnormal Mammogram No history of AK, COPD, asthma, peptic ulcer dx, hyperlipidemia, gallstones, hypothyroidism, hypertension, cancer, DVT, PE, CVA, T2DM, gout, kidney stones, CKD and smoking history. PAST SURGICAL HISTORY Procedure Laterality Date BIOPSY BREAST OPEN INCISIONAL Right 12/19/2015 Bx of breast, incisional COLONOSCOPY FLX DX W/COLLJ SPEC WHEN PFRMD 05/03/13 Colonoscopy COLONOSCOPY FLX DX W/COLLJ SPEC WHEN PFRMD 04/20/2018 repeat 5 years ENDOMETRIAL ABLTJ THERMAL W/O HYSTEROSCOPIC GUID 04/13/13 ESOPHAGOGASTRODUODENOSCOPY TRANSORAL DIAGNOSTIC 11/14/03 EGD LAPS ABD PRTM&OMENTUM DX W/WO SPEC BR/WA SPX Laparoscopy PAST SURGICAL HISTORY OF Left 11 Hallux limitus TONSILLECTOMY PRIMARY/SECONDARY <AGE 10 Tonsillectomy Obesity ROS/ FHx GEN: Fatigue:yes CV: h/o palpitations/cardiac arrhythmia, CP:No PULM: Asthma:No GI: GERD:occasionally; Gallstones: No; Fatty liver disease:No; H/o hernia:No MSK: Joint Pain:Feet : Nephrolithiasis:No; Stress incontinence:No Symptoms of PCOS(women):No thyroid disorder (hypothyroidism since age 8) NEURO: Migraines/RUTLEDGE:No; H/o seizures: No Glaucoma:No; Cataracts No Symptoms of pseudotumor cerebri:No The physical systems reviewed reveal no pathological symptoms that are pertinent to this visit Family History Problem Relation Age of Onset Hypertension Mother ULCERS/hypercholestremia other (epilipsy) Mother Hypertension Father HYPERCHOLESTREMIA Melanoma Father ear other (HYPOTHYRODISM) Sister Arthritis Sister Neck and Back Surgery other (HYPOTHYROIDISM) Sister Heart Paternal Grandmother Heart Paternal Grandfather AK PREV: PAP UTD, Mammogram UTD and Colonoscopy UTD Social History Social History Tobacco Use Smoking status: Never Smokeless tobacco: Never Vaping Use Vaping Use: Never used Substance Use Topics Alcohol use: Yes Comment: Occasionally Drug use: No Occupation: schools PE BP 146/94 Ht 5' 5 (1.651 m) Wt 227 lb (103 kg) LMP 10/03/2014 (Exact Date) BMI 37.77 kg/m NAD. Mixed central and gluteofemoral adiposity. Waist circumference not measured. No acanthosis, No supraclavicular adiposity. No dorsal adiposity. PERRL. Good dental hygiene RRR nl. s1s2 CTAB Abdomen Soft Small pannus Results: reviewed with the patient Impression: Lillian Taylor is a 52 year old female with Class II obesity (Body mass index is 37.77 kg/m .) who has early onset obesity with several periods of weight loss followed by weight gain . The causes of her obesity are multifactorial, biological, psychological and social and environmental. Specific factors include increased consumption of high calorie/process foods, irregular eating patterns , and suboptimal physical activity. She has few weight-related medical comorbidities which increase her cardiovascular mortality risk. There are additional metabolic obesity complications including hypertension. Other medical conditions as above. Overall, it is clear that her quality of life is mildly compromised by her weight. It is likely a combination of weight loss therapies will be needed. She appears motivated today. Plan: -- Based on the severity and resistance of the obesity to more conservative weight loss approaches, I believe a pharmacotherapy intervention is the best and most appropriate [place] [facility] therapeutic option. Prescription instructions reviewed with patient as applicable. Potential red flag symptoms discussed with the patient. Reviewed appropriate action plan to take if red flag symptoms occur. Patient agreeable to treatment plan. Follow-up in 4 weeks Phentermine ordered- proper administration reviewed. No contraindication to start. Common SE reviewed. Labs ordered today I spent a total of 30 minutes on the date of the service which included preparing to see the patient, [id number] patient care, completing clinical documentation, obtaining and/or reviewing separately obtained history, performing a medically appropriate examination, counseling and educating the patient/family/caregiver, and ordering medications, tests, or procedures. Interested in nutrition consult- will call M.Setek China Ingram MD documented in this encounter [facility] 03-25-2022 Miscellaneous Notes March 25, 2022 PID: [id number] Lillian Taylor [address] [place] [address] Dear Ms. Taylor, We are pleased to inform you that the results of your recent breast imaging exam on 03/22/2022 are normal. Early detection of cancer is very important. We also understand recommendations regarding breast cancer screening are controversial. Please discuss with your primary care provider which strategy is best for you and whether a mammogram is right for you. Your imaging studies and report will be kept on file at [facility] as part of your permanent medical record and are available for your continuing care. Thank you for allowing us to help in meeting your health care needs. Sincerely, Dr. Pal Interpreting Radiologist [facility] (Normal over 40) documented in this encounter [facility] 03-22-2022 History of Presen t illness Narrative Bibi is a 51 year old who presents for an annual gynecologic exam without complaints. Works at [employer]. Going to [place] this year. Expecting grandchild this winter. Still with urinary urgency and frequency- drinks a lot of coffee Postmenopausal: Yes LMP 09/2020 HRT use: No. Last Pap: 03/02/2019 normal HPV: 03/01/2019 negative History of abnormal pap: No Last mammogram: 2021 pending History of abnormal mammogram: No Sexually active: Yes History of STDS: None Patient concerns for STD exposure: No. Pain with intercourse: No Postcoital bleeding: No Hot flashes: Yes Night sweats: No Vaginal dryness: No Exercise: yes Diet: working on improving OB History T3 L3 SAB3 IAB0 Ectopic0 Multiple0 Live Births0 [employer] Work[employer] History LMP: 10/03/2014 (Exact Date), Ablation Age at Menarche: Age at First : Age at Menopause: [employer] Worker History Comments: Sexual Activity: Yes; Male Contraception: Vasectomy PAST MEDICAL HISTORY Diagnosis Date Abdominal pain, unspecified site Resolved Diarrhea Esophagitis, unspecified Nausea alone Rosacea Unspecified hypothyroidism PAST SURGICAL HISTORY Procedure Laterality Date BIOPSY BREAST OPEN INCISIONAL Right 12/19/2015 Bx of breast, incisional COLONOSCOPY FLX DX W/COLLJ SPEC WHEN PFRMD 05/03/13 Colonoscopy COLONOSCOPY FLX DX W/COLLJ SPEC WHEN PFRMD 04/20/2018 repeat 5 years ENDOMETRIAL ABLTJ THERMAL W/O HYSTEROSCOPIC GUID 04/13/13 ESOPHAGOGASTRODUODENOSCOPY TRANSORAL DIAGNOSTIC 11/14/03 EGD LAPS ABD PRTM&OMENTUM DX W/WO SPEC BR/WA SPX Laparoscopy PAST SURGICAL HISTORY OF Left 11 Hallux limitus TONSILLECTOMY PRIMARY/SECONDARY <AGE 10 Tonsillectomy FAMILY HISTORY Problem Relation Age of Onset Hypertension Mother ULCERS/hypercholestremia other (epilipsy) Mother Hypertension Father HYPERCHOLESTREMIA Melanoma Father ear other (HYPOTHYRODISM) Sister Arthritis Sister Neck and Back Surgery other (HYPOTHYROIDISM) Sister Heart Paternal Grandmother Heart Paternal Grandfather AK SOCIAL HISTORY Social History Tobacco Use Smoking status: Never Smokeless tobacco: Never Vaping Use Vaping Use: Never used Substance Use Topics Alcohol use: Yes Comment: Occasionally Drug use: No REVIEW OF SYSTEMS Abdomen: No abdominal pain, nausea, vomiting, diarrhea, or constipation. No bloating, early satiety, indigestion, or increased flatulence. Bladder: No dysuria Breast: No breast lumps, nipple d/c, overlying skin changes, redness or skin retraction Allergies and current medication updated:Yes EXAM: BP 146/94 Ht 5' 5 (1.65m) Wt 225 lb (102.1kg) LMP 10/03/2014 BMI 37.44 kg/(m^2). GENERAL: pleasant, female in no apparent distress HEENT: Normocephalic, atraumatic, mucus membranes moist, and no lesions NECK: Supple, full range of motion, no adenopathy, and thyroid normal DERMATOLOGY: Normal, without lesions, non-icteric, and non-hirsute BREAST: soft, non-tender, symmetric, no dominant mass, normal nipple-areolar complex, no lymphadenopathy, and no nipple discharge ABDOMEN: soft, non-tender, and no masses PELVIC: external genitalia normal, normal Bartholin's glands, urethra, Cecilton's glands, no vulvar lesions, no cervical lesions, good vaginal support, physiologic discharge present, normal appearing perineal body and perianal region BIMANUAL: uterus normal size, shape and consistency, no adnexal masses, and non-tender RECTOVAGINAL: deferred. NEURO: alert and oriented x3,exam grossly non-focal EXTREMITIES: normal ASSESSMENT/PLAN: 1) Health maintenance: Pap/HPV up to date. Mammogram ordered Mammogram up to date Nutrition, exercise and routine health maintenance exams reviewed. Calcium/Vitamin D supplementation information provided. Colon cancer screening: up to date with screening 2) Follow up one year or sooner as needed 3) weight loss reviewed. Diet modification reviewed. Urinary urgency reviewed. China Ingram MD Material Carrier offered: Patient declines. documented in this encounter [facility] documented as of this encounter (statuses as of 03/22/2022) [facility] History of Past illness Narrative* Problem Noted Date Resolved Date Premenopausal menorrhagia 10/20/20122013 Esophagitis, unspecified 012 Variants of migraine, not el sewhere classified, without mention of intractable migraine without mention of status migrainosus 10/02/2011 documented as of this encounter (statuses as of 03/27/2022) [facility] History of Past illness Narrative* Problem Noted Date Resolved Date Premenopausal menorrhagia 10/20/20122013 Esophagitis, unspecified 012 Variants of migraine, not el sewhere classified, without mention of intractable migraine without mention of status migrainosus 10/02/2011 documented as of this encounter (statuses as of 06/19/2022) [facility] History of Past illness Narrative* Problem Noted Date Resolved Date Premenopausal menorrhagia 10/20/20122013 Esophagitis, unspecified 012 Variants of migraine, not el sewhere classified, without mention of intractable migraine without mention of status migrainosus 10/02/2011 documented as of this encounter (statuses as of 06/24/2022) [facility] History of Past illness Narrative* Problem Noted Date Diagnosed Date Resolved Date Premenopausal menorrhagia 10/20/2012 Esophagitis, unspecified Variants of migraine, not el sewhere classified, without mention of intractable migraine without mention of status migrainosus 10/02/2011 documented as of this encounter (statuses as of 02/11/2023) [facility] History of Past illness Narrative* Problem Noted Date Diagnosed Date Resolved Date Premenopausal menorrhagia 10/20/2012 Esophagitis, unspecified Variants of migraine, not el sewhere classified, without mention of intractable migraine without mention of status migrainosus 10/02/2011 documented as of this encounter (statuses as of 04/08/2023) [facility] History of Past illness Narrative* Problem Noted Date Diagnosed Date Resolved Date Premenopausal menorrhagia 10/20/2012 Esophagitis, unspecified Variants of migraine, not el sewhere classified, without mention of intractable migraine without mention of status migrainosus 10/02/2011 documented as of this encounter (statuses as of 04/09/2023) [facility] note* Diagnosis Encounter for gynecological examination (general) (routine) without abnormal findings- Primary Encounter for screening mammogram for malignant neoplasm of breast Other screening mammogram documented in this encounter [facility] note* Diagnosis Class 2 severe obesity with serious comorbidity and body mass index (BMI) of 37.0 to 37.9 in adult, unspecified obesity type (HCC)- Primary Encounter for screening for diabetes mellitus Screening for diabetes mellitus Screening, anemia, deficiency, iron Screening for iron deficiency anemia Encounter for vitamin deficiency screening Screening for other and unspecified endocrine, nutritional, metabolic, and immunity disorders Screening cholesterol level Screening for lipoid disorders Hypothyroidism, unspecified type BMI 37.0-37.9, adult Body Mass Index 37.0-37.9, adult documented in this encounter [facility] note* Diagnosis Encounter for screening for malignant neoplasm of colon- Primary Special screening for malignant neoplasms, colon Family history of colonic polyps documented in this encounter [facility] note* Diagnosis Screening for colon cancer- Primary Special screening for malignant neoplasms, colon History of colon polyps Personal history of colonic polyps documented in this encounter [facility] for referral (narrative)* Diagnostic Procedure Only (Routine) - Pending Review Specialty Diagnoses / Procedures Referred By Carolyn iglesias Referred To Contact [facility] Diagnoses Encounter for screening mammogram for malignant neoplasm of breast Procedures WOODY SCREENING W JORDAN SCREENING DIGITAL BREAST TOMOSYNTHESIS BI SCREENING [employer] China Tomlinson MD [address] [place] [id number] [facility] [address] [place] [phone] Referral ID Status Reason Start Date Expiration Date Visits Requested Visits Authorized [id number] Pending Review Auto-Generat ed Referral 2 04/21/2023 1 1 [facility] for referral (narrative)* Outpatient Procedure (Routine) - Closed Specialty Diagnoses / Procedures Referred By Carolyn iglesias Referred To Contact [facility] Diagnoses History of colon polyps Procedures COLONOSCOPY SCREENING COLONOSCOPY FLX DX W/COLLJ SPEC WHEN PFRMD Leticia Boles PA-C [address] [place] [address] [address] Referral ID Status Reason Start Date Expiration Date V isits Requested Visits Authorized [id number] Closed Auto-Generate d Referral 02/06/2023 02/06/2024 [facility] Procedure (Routine) - Closed Specialty Diagnoses / Procedures Referred By Carolyn t Referred To Contact [facility] Diagnoses History of colon polyps Procedures COLONOSCOPY SCREENING COLONOSCOPY FLX DX W/COLLJ SPEC WHEN PFRMD Leticia Boles PA-C [address] [place] [address] [address] Referral ID Status Reason Start Date Expiration Date V isits Requested Visits Authorized [id number] Closed Auto-Generate d Referral 02/06/2023 02/06/2024 1 1 [facility] Medications Administered Section Inactive Administered Medications - up to 3 most recent administrations Medication Order MAR Action Action Date Dose Rate Site diphenhydrAMINE 12.5-50 mg injection (BENADRYL) 12.5-50 mg, INTRAVENOUS, DIRECTED, Starting on Fri04/07/23 at 0800, Until Fri04/07/23 at 1159, DOSING DIRECTED BY PHYSICIAN FOR PROCEDURAL SEDATION ONLY, Intraprocedure Given 04/07/2023 7:35 AM EST 50 mg fentaNYL 50 mcg/mL 25-100 mcg injection (SUBLIMAZE) 25-100 mcg, INTRAVENOUS, DIRECTED, Starting on Fri04/07/23 at 0800, Until Fri04/07/23 at 1159, DOSING DIRECTED BY PHYSICIAN FOR PROCEDURAL SEDATION ONLY, Intraprocedure Given 04/07/2023 7:33 AM EST 50 mcg lactated ringers iv infusion 75 mL/hr, INTRAVENOUS, CONTINUOUS, Starting on Fri04/07/23 at 0730, Until Fri04/07/23 at 0802, Preprocedure New Bag/Syringe/Yovani le 04/07/2023 7:23 AM EST 75 mL/hr 75 mL/hr Hand, Right midazolam 1-5 mg injection (VERSED) 1-5 mg, INTRAVENOUS, DIRECTED, Starting on Fri04/07/23 at 0800, Until Fri04/07/23 at 1159, DOSING DIRECTED BY PHYSICIAN FOR PROCEDURAL SEDATION ONLY, Intraprocedure Given 04/07/2023 7:42 AM EST 2 mg Summary Purpose Family History No Family History Records Found Advance Directives No Advanced Directives Records Found Additional Source Comments Source Comments (unrecognize d section and content) In the event this informatio n is protected by the Federal Confidentiality of Alcohol and Drug Abuse Patient Records regulations: The Federal rules restrict any use of the information to criminally investigate or prosecute any alcohol or drug abuse patient.[facility] the event this information is protected by the Federal Confidentiality of Alcohol and Drug Abuse Patient Records regulations: The Federal rules restrict any use of the information to criminally investigate or prosecute any alcohol or drug abuse patient.[facility] the event this information is protected by the Federal Confidentiality of Alcohol and Drug Abuse Patient Records regulations: The Federal rules restrict any use of the information to criminally investigate or prosecute any alcohol or drug abuse patient.[facility] the event this information is protected by the Federal Confidentiality of Alcohol and Drug Abuse Patient Records regulations: The Federal rules restrict any use of the information to criminally investigate or prosecute any alcohol or drug abuse patient.[facility] the event this information is protected by the Federal Confidentiality of Alcohol and Drug Abuse Patient Records regulations: The Federal rules restrict any use of the information to criminally investigate or prosecute any alcohol or drug abuse patient.[facility] the event this information is protected by the Federal Confidentiality of Alcohol and Drug Abuse Patient Records regulations: The Federal rules restrict any use of the information to criminally investigate or prosecute any alcohol or drug abuse patient.[facility] the event this information is protected by the Federal Confidentiality of Alcohol and Drug Abuse Patient Records regulations: The Federal rules restrict any use of the information to criminally investigate or prosecute any alcohol or drug abuse patient.[facility] Reason for Visit (unrecogniz ed section and content) Reason Comments Discussion Reason Comments Patient Update Reason Comments Consult Colonoscopy Care Teams (unrecognized sec tion and content) Pitching Coach Relationship Specialty Start Date End Date Donnell Barroso MD PCP - General Family Medicine 06/24/11 Pitching Coach Relationship Specialty Start Date End Date Donnell Barroso MD PCP - General Family Medicine 06/24/11 Pitching Coach Relationship Specialty Start Date End Date Donnell Barroso MD PCP - General Family Medicine 06/24/11 Pitching Coach Relationship Specialty Start Date End Date Donnell Barroso MD PCP - General Family Medicine 06/24/11 Pitching Coach Relationship Specialty Start Date End Date Donnell Barroso MD PCP - General Family Medicine 06/24/11 Pitching Coach Relationship Specialty Start Date End Date Donnell Barroso MD PCP - General Family Medicine 06/24/11 INFORMATION SOURCE (unrecogn ized section and content) FOR RECORDS PERTAINING TO PATIENTS WHO ARE OR HAVE BEEN ENROLLED IN A CHEMICAL DEPENDENCY/SUBSTANCEABUSE PROGRAM, SOME INFORMATION MAY BE OMITTED. This clinical summary was aggregated from multiple sources. Caution should be exercised in using it in the provision of clinical care. This summary normalizes information from multiple sources, and as a consequence, information in this document may materially change the coding, format and clinical context of patient data. In addition, data may be omitted in some cases. CLINICAL DECISIONS SHOULD BE BASED ON THE PRIMARY CLINICAL RECORDS. [employer] [facility]. provides no warranty or guarantee of the accuracy or completeness of information in this document.
[2023-05-12 18:11] LABS: AST(SGOT) 28 U/L (15-37); Alanine Aminotransfer ALT/SGPT 44 U/L (13-56); Albumin, Serum 3.8 g/dL (3.2-5.0); Alkaline Phosphatase 83 U/L (45-117); Anion Gap 6 (5-15); BUN 10 mg/dL (7-18); BUN/Creat Ratio 13.2 RATIO (10-20); Calcium,Total 8.6 mg/dL (8.5-10.1); Chloride 104 mmol/L (98-107); Creatinine, Serum 0.76 mg/dL (0.55-1.02); EST Glomerular Filtration Rate 84 mL/min (>60); Est Glom Filt Rate - Afr Amer 102 mL/min (>60); Globulin 3.9 g/dL (2.2-4.2); Glucose 124 mg/dL (74-106); Potassium 3.8 mmol/L (3.5-5.1); Protein, Total 7.7 g/dL (6.4-8.2); Sodium Level 139 mmol/L (136-145); Thyroid Stim Hormone (TSH) 0.78 uIU/mL (0.358-3.74)
== END | disposition home or self-care (01) ==
LOC: MFPLAB 14:45
PROVIDERS: PCP Family Medicine; Visit Provider Family Medicine
DX: E03.9 Hypothyroidism, unspecified (principal)
CPT/HCPCS: 36415; 80053; 84443

== ENCOUNTER → 2023-09-23 | Outpatient (CLI) | payer OTHER, SELFPAY ==
[2023-09-23 17:43] LABS: Absolute Lymphocyte Count 2.36 X10^3/uL (0.83-4.51); Basophil# 0.08 X10^3/uL; Basophil% 0.9 % (0-1); Eosinophils% 1.1 % (0-5); Hematocrit 42.7 % (37-47); Hemoglobin 14.4 g/dL (12.0-15.0); Lymphocyte # 2.36 X10^3/ul (0.83-4.51); Lymphocyte % 25.7 % (19-41); Mean Corp Hgb Conc 33.7 g/dL (32-36); Mean Corpuscular Hgb 29.9 pg (27.0-32.0); Mean Corpuscular Volume 88.8 fL (81-99); Mean Platelet Vol. 10.3 fl (6.2-12.0); Monocyte# 0.63 X10^3/uL; Monocyte% 6.9 % (0-10); NRBC Flagged by Analyzer 0 % (0-5); Neutrophil # 5.99 X10^3/uL (2.7-7.7); Neutrophil % 65.1 % (47-70); Platelet Count 331 K/mm3 (150-450); RBC Distribution Width CV 12.4 % (11.6-14.6); RBC Distribution Width SD 40.4 fl (35.1-43.9); Red Blood Count 4.81 M/mm3 (4.2-5.4); White Blood Count 9.2 K/mm3 (4.4-11.0)
[2023-09-23 18:08] LABS: AST(SGOT) 19 U/L (15-37); Alanine Aminotransfer ALT/SGPT 28 U/L (13-56); Albumin, Serum 3.8 g/dL (3.2-5.0); Alkaline Phosphatase 67 U/L (45-117); Anion Gap 9 (5-15); BUN 13 mg/dL (7-18); BUN/Creat Ratio 19.1 RATIO (10-20); Calcium,Total 9.2 mg/dL (8.5-10.1); Chloride 103 mmol/L (98-107); Creatinine, Serum 0.68 mg/dL (0.55-1.02); EST Glomerular Filtration Rate 96 mL/min (>60); Est Glom Filt Rate - Afr Amer 116 mL/min (>60); Globulin 3.8 g/dL (2.2-4.2); Glucose 106 mg/dL (74-106); Potassium 3.7 mmol/L (3.5-5.1); Protein, Total 7.6 g/dL (6.4-8.2); Sodium Level 138 mmol/L (136-145); Thyroid Stim Hormone (TSH) 0.36 uIU/mL (0.358-3.74)
== END | disposition home or self-care (01) ==
LOC: MFPLAB 14:13
PROVIDERS: PCP Family Medicine; Visit Provider Family Medicine
DX: E03.9 Hypothyroidism, unspecified (principal); R35.0 Frequency of micturition
CPT/HCPCS: 36415; 80053; 84443; 85025

== ENCOUNTER → 2023-10-02 | Outpatient (CLI) | payer OTHER, SELFPAY ==
[2023-10-04 06:08] LABS: V-Zoster IgG (Immunity) > 4000 index (Immune >165)
== END | disposition home or self-care (01) ==
LOC: MFPLAB 14:07
PROVIDERS: PCP Family Medicine; Visit Provider Family Medicine
DX: Z23 Encounter for immunization (principal)
CPT/HCPCS: 36415; 86787

== ENCOUNTER → 2024-06-10 | Outpatient (CLI) | payer OTHER, SELFPAY | END | disposition home or self-care (01) | PROVIDERS: PCP Family Medicine | DX: H69.90 Unspecified Eustachian tube disorder, unspecified ear (principal) ==

== ENCOUNTER → 2024-07-03 | Outpatient (CLI) | payer OTHER, SELFPAY ==
[2024-07-03 11:31] LABS: Hemoglobin A1c 5.7 % (<=5.6)
[2024-07-03 11:38] LABS: ALB/GLOB Ratio 1.4 RATIO (0.9-2.4); AST(SGOT) 27 U/L (<=31); Alanine Aminotransfer ALT/SGPT 32 U/L (<=34); Albumin, Serum 4.2 g/dL (3.5-5.0); Alkaline Phosphatase 72 U/L (35-104); Anion Gap 9 (5-15); BUN 9 mg/dL (4-19); BUN/Creat Ratio 15.5 RATIO (10-20); Calcium 8.9 mg/dL (7.6-11.0); Carbon Dioxide 26.2 mmol/L (22.0-29.0); Chloride 102 mmol/L (96-108); Cholesterol 232 mg/dL (<=200); Creatinine, Serum 0.59 mg/dL (0.70-1.20); EST Glomerular Filtration Rate 106 (>60); Glucose 104 mg/dL (70-99); High Density Lipoprotein 52 mg/dL; Low Density Lipoprotein Calc. 157 mg/dL; Protein, Total 7.1 g/dL (5.9-8.4); Sodium Level 138 mmol/L (133-145); Thyroid Stim Hormone (TSH) 0.341 uIU/mL (0.300-4.200); Triglycerides 120 mg/dL; Very Low Density Lipoprotein 24 mg/dL (5-40)
== END | disposition home or self-care (01) ==
LOC: LAB 10:34
PROVIDERS: PCP Family Medicine; Referring Provider Family Medicine; Visit Provider Family Medicine
DX: E03.9 Hypothyroidism, unspecified (principal); R73.02 Impaired glucose tolerance (oral)
CPT/HCPCS: 36415; 80053; 80061; 83036; 84439; 84443

== ENCOUNTER → 2024-07-13 | Outpatient (CLI) | payer OTHER, SELFPAY ==
[2024-07-13 08:18] LABS: CRP 6.78 mg/L (0.0-3.0); Thyroid Stim Hormone (TSH) 0.705 uIU/mL (0.300-4.200)
[2024-07-13 08:20] LABS: ALB/GLOB Ratio 1.4 RATIO (0.9-2.4); AST(SGOT) 23 U/L (<=31); Alanine Aminotransfer ALT/SGPT 23 U/L (<=34); Albumin, Serum 4.2 g/dL (3.5-5.0); Alkaline Phosphatase 68 U/L (35-104); Anion Gap 12 (5-15); BUN 13 mg/dL (4-19); BUN/Creat Ratio 19.9 RATIO (10-20); Calcium,Total 9.1 mg/dL (7.6-11.0); Chloride 104 mmol/L (98-108); Creatinine, Serum 0.64 mg/dL (0.70-1.20); EST Glomerular Filtration Rate 104 (>60); Glucose 128 mg/dL (70-99); Potassium 3.8 mmol/L (3.3-5.1); Protein, Total 7.2 g/dL (5.9-8.4); Sodium Level 139 mmol/L (133-145); Total Bilirubin 0.56 mg/dL (0.00-1.30)
[2024-07-13 09:00] LABS: Absolute Lymphocyte Count 1.74 X10^3/uL (0.83-4.51); Absolute Neutrophil Count 3.8 X10^3/uL (2.0-7.7); Basophil# 0.05 X10^3/uL; Basophil% 0.8 % (0-1); Eosinophil# 0.09 X10^3/uL; Eosinophils% 1.4 % (0-5); Hematocrit 40.3 % (37-47); Hemoglobin 14.1 g/dL (12.0-15.0); Lymphocyte # 1.74 X10^3/ul (0.83-4.51); Lymphocyte % 27.8 % (19-41); Mean Corpuscular Hgb 30.5 pg (27.0-32.0); Mean Corpuscular Volume 87.2 fL (81-99); Mean Platelet Vol. 10.8 fl (6.2-12.0); Monocyte# 0.53 X10^3/uL; Monocyte% 8.5 % (0-10); NRBC Flagged by Analyzer 0 % (0-5); Neutrophil # 3.82 X10^3/uL (2.7-7.7); Neutrophil % 61.2 % (47-70); Platelet Count 283 K/mm3 (150-450); RBC Distribution Width CV 12.2 % (11.6-14.6); RBC Distribution Width SD 38.8 fl (35.1-43.9); Red Blood Count 4.62 M/mm3 (4.2-5.4); White Blood Count 6.3 K/mm3 (4.4-11.0)
[2024-07-13 10:07] LABS: Erythrocyte Sedimentation Rate 18 mm/hr (0-30)
[2024-07-14 08:01] LABS: PTHIN 66 pg/mL (11-61)
[2024-07-14 12:08] LABS: ANTINUCLEAR ANTIBODIES DIRECT Negative (Negative)
[2024-07-14 18:00] LABS: Vitamin D,25 Hydroxy 31.4 ng/mL (30-100)
[2024-07-16 18:08] LABS: Lyme Scn Total Ab w/Rflx Negative (Negative); PROEL- A/G Ratio 1.2 (0.7-1.7); PROEL- Albumin 3.7 g/dL (2.9-4.4); PROEL- Alpha-1 Globulin 0.2 g/dL (0.0-0.4); PROEL- Alpha-2 Globulin 0.6 g/dL (0.4-1.0); PROEL- Beta Globulin 1.2 g/dL (0.7-1.3); PROEL- Gamma Globulin 1.1 g/dL (0.4-1.8); PROEL- Globulin, Total 3.1 g/dL (2.2-3.9); PROEL- TOTAL PROTEIN 6.8 g/dL (6.0-8.5); PROEL-M-Spike Not Observed g/dL (Not Observed); QNTFERON TB Mitogen Value > 10.00 IU/mL (.); QNTFERON TB Nil Value 0.03 IU/mL (.); QNTFERON TB1+ Ag Value 0.04 IU/mL (.); QNTFERON TB2+ Ag Value 0.05 IU/mL (.); QNTIFERON TB Positive Criteria Negative (Negative)
== END | disposition home or self-care (01) ==
LOC: LAB 06:21
PROVIDERS: PCP Family Medicine; Referring Provider Family Medicine; Visit Provider Family Medicine
DX: R59.0 Localized enlarged lymph nodes (principal)
CPT/HCPCS: 36415; 80053; 82306; 83970; 84165; 84443; 85025; 85652; 86038; 86140; 86480; 86618

== ENCOUNTER 2024-10-16 13:03 | Emergency (ER) | payer OTHER, SELFPAY ==
[2024-10-16 13:04] VITALS: BP 172/91; PULSE 64; RESP 16; TEMP 36.5; O2SAT 97; BMI 38.4
[2024-10-16 15:03] VITALS: PULSE 64; RESP 18; O2SAT 100
[2024-10-16 15:51] VITALS: BP 165/86; PULSE 58; RESP 18; O2SAT 100
[2024-10-16 17:00] VITALS: PULSE 55; RESP 20; O2SAT 100
--- NOTE | 2024-10-16 17:11 | CT_ITS ---
EXAM: BRAIN/HEAD WITHOUT CONTRAST CLINICAL HISTORY: 54 y/o F with HEADACHE HYPERTENSION. COMPARISON: None. TECHNIQUE: Routine CT imaging of the head without IV contrast. Additional multiplanar reformats were obtained. Dose reduction techniques were used including intermediate exposure control (AEC),iterative reconstruction technique, and/or mA and/or KV dose adjustments based on patient's size. FINDINGS: The ventricles, sulci and cisterns are normal for patient age. There is no evidence of intracranial hemorrhage. There is no midline shift, mass effect, or extra-axial collection. Mild scattered supratentorial white matter hypodensities. The orbits, visualized paranasal sinuses and mastoids are unremarkable. No acute calvarial fracture or scalp hematoma. CT/Brain/Head without Contrast IMPRESSION: No acute intracranial finding. Reading Location: [id number]
--- NOTE | 2024-10-16 17:11 | EKG12_ITS ---
Test Reason : Blood Pressure : */* mmHG Vent. Rate : 61 BPM Atrial Rate : 61 BPM P-R Int : 140 ms QRS Dur : 78 ms QT Int : 454 ms P-R-T Axes : 13 -2 -5 degrees QTcB Int : 457 ms Normal sinus rhythm Minimal voltage criteria for LVH, may be normal variant ( R in aVL ) Nonspecific ST abnormality Abnormal ECG Confirmed by SOLANGE CORREA, KENZIE ([id number]), subeditor LETICIA RICHARDSON ([id number]) on 10/19/2024 7:48:11 AM Referred By: Confirmed By: KENZIE NARVAEZ MD
--- NOTE | 2024-10-16 17:12 | EDS_ITS ---
HPI History of Present Illness Chief Complaint: Hypertension Informant: patient and spouse/S.O. Narrative Narrative: 54-year-old female presenting to the emergency room with vomiting neck and right arm paresthesia and hypertension. Patient states that earlier today the patient began to feel very anxious. She typically takes buspirone at night but can take it up to twice a day. She is taking it during the day without any symptomology. She states that shortly after taking it she began to get nauseated to feel flushed and began to have an abnormal sensation on the right side of her neck into the shoulder. She has been having some pain in her right elbow and hand and thought maybe was arthritis but now notes that the right arm feels tingly. She states that she took her blood pressure but she vomited and when she checked the readings they were in the 170-180 range. She states that she saw her doctor not too long ago and her blood pressure was not significantly elevated. She states that she does take 2 blood pressure medications (ramipril and Nebivolol). She states that she does not take those as consistently as she should. She denies any significant abdominal pain or diarrhea. No fevers. She describes a frontal pressure-like headache. She continues to feel nauseated and anxious. [facility] Medical History Hypertension Hypothyroidism Home Medications ?Medication ?Instructions ?Recorded ?Last Taken ?Type levothyroxine 137 mcg tablet 137 mcg PO DAILY 11/07/19 Unknown History buspirone 10 mg capsule 10 mg PO BID 10/16/24 Unknow n History estradiol 0.01% (0.1 mg/gram) vaginal 10/16/24 Unknown History vaginal cream nebivolol 5 mg tablet 5 mg PO DAILY 10/16/24 Unkno wn History ramipril 10 mg capsule 10 mg PO DAILY 10/16/24 Unkn own History Allergy/AdvReac Type Severity Reaction Status Date / Time No Known Allergies Allergy Verified 10/16/24 13:07 Social History Smoking Status: Never smoker ROS ROS ED Constitutional Constitutional ED: Denies chills or weight loss Eyes Eyes: Denies change in vision or diplopia ENT ENT ED: Denies ear pain, rhinorrhea or sore throat Cardiovascular Cardiovascular: Denies chest pain, orthopnea, palpitations or racing heartbeat Respiratory/Chest Respiratory/Chest: Denies cough, dyspnea or orthopnea Gastrointestinal Gastrointestinal: Denies abdominal pain, diarrhea, nausea or vomiting Genitourinary Genitourinary ED: Denies dysuria, hematuria or urinary frequency Musculoskeletal Musculoskeletal: Reports neck pain and other; Denies arthralgias or myalgias Integumentary Denies abscess or rash Neurologic Neurologic: Reports headache(s) and paresthesias RUE; Denies weakness Psychiatric Psychiatric: Reports anxiety; Denies depression, suicidal ideation or suicidal thoughts Endocrine Endocrinology: Denies polydipsia, polyphagia or polyuria Allergic/Immunologic Allergic/Immunologic ED: Denies mouth swelling, tongue swelling or urticaria EXAM Physical Exam Const Vital Signs: 10/16/24 13:04 10/16/24 15:03 10/16/24 15:51 Temperature 97.7 F L Temperature Source Oral Pulse Rate 64 64 58 L Respiratory Rate 16 18 18 Respiratory Effort Respiratory Pattern Blood Pressure 172/91 H 165/86 H Blood Pressure Mean 118 112 Pulse Ox 97 100 100 Oxygen Delivery Method Room Air Room Air Room Air 10/16/24 15:56 10/16/24 17:00 Temperature Temperature Source Pulse Rate 55 L Respiratory Rate 20 H Respiratory Effort Normal Non-Labored Respiratory Pattern Normal Blood Pressure Blood Pressure Mean Pulse Ox 100 Oxygen Delivery Method Room Air Positive well nourished and well developed General Appearance ED: well developed and NAD HEENT Reports normocephalic, head/scalp atraumatic and moist mucous membranes Eyes PERRL and EOMs intact bilaterally Neck no lymphadenopathy, supple and no JVD Resp normal respiratory effort and clear to auscultation bilaterally Cardio regular rate, regular rhythm and no murmurs GI normal to inspection, nondistended, normoactive bowel sounds and non-tender Palpation: soft Back/Spine no CVA tenderness and normal ROM Extremity normal to inspection General Extremety ED: Negative for edema General Extremity: Negative for edema Neuro oriented x3, CN's II-XII intact bilaterally and no sensory deficits noted Neuro Narrative: NIH 0 Sensorium / Orientation: alert; Negative for orientation impaired Sensory Exam: No sensory level loss detected Motor Exam: strength 5/5 throughout Psych mental status grossly normal Mood & Affect: Negative for depressed or tearful Skin no rashes or lesions noted and no wounds MDM MDM MDM Narrative Medical decision making narrative: Differential diagnosis includes but not limited to hypertensive emergency urgency acute kidney injury acute coronary syndrome anxiety intracranial hemorrhage Patient is EKG is a normal sinus rhythm with no concerning ST segments. Her troponin is normal. Urinalysis does not demonstrate any infection but in this case no proteinuria. Her creatinine is normal. LFTs and lipase are normal. White count 11.2. CT the brain shows no acute findings. My independent interpretation of the chest x-ray is no acute process. Patient's had no events on the monitor. Blood pressures currently down to 152/83. Patient received Zofran for nausea. At this point I think the patient can be discharged home. Would recommend monitoring her blood pressure taking the blood pressure medicine regularly and following up with her primary care doctor. Return if worsening or concerns History & Record Review Discussion w/independent historian: Patient and Significant other Additional record(s) reviewed:: Prior ED visit and Prior labs Lab Data Attestation: I reviewed the patient's lab results. Labs: Laboratory Results - last 24 hr 10/16/24 17:30 WBC 11.2 H RBC 4.78 Hgb 14.5 Hct 41.7 MCV 87.2 MCH 30.3 MCHC 34.8 RDW Std Deviation 39.0 RDW Coeff of Sandra 12.2 Plt Count 286 MPV 10.2 Immature Gran % (Auto) 0.400 Neut % (Auto) 80.2 H Lymph % (Auto) 15.0 L [place] % (Auto) 3.9 Eos % (Auto) 0.1 Baso % (Auto) 0.4 Absolute Neuts (auto) 9.0 H Absolute Lymphs (auto) 1.68 Nucleated RBC % 0 Sodium 139 Potassium 4.1 Chloride 103 Carbon Dioxide 25.2 Anion Gap 11 BUN 9 Creatinine 0.64 L Estim Creat Clear Calc 117.88 Est GFR (MDRD) Non-Af 104 BUN/Creatinine Ratio 14.2 Glucose 103 H Calcium 9.2 Total Bilirubin 0.29 Direct Bilirubin 0.12 AST 24 ALT 29 Alkaline Phosphatase 75 Troponin T High Sens < 6 Total Protein 7.3 Albumin 4.3 Globulin 3.0 Lipase 20 Urine Color Straw Urine Clarity Clear Urine pH 8.0 Ur Specific [place] 1.010 Urine Protein Negative Urine Glucose (UA) Normal Urine Ketones Negative Urine Occult Blood Negative Urine Nitrite Negative Urine Bilirubin Negative Urine Urobilinogen Normal Ur Leukocyte Esterase 500 H Urine RBC 0 SEEN Urine WBC 5-10 SEEN Ur Squamous Epith Cells 0-5 SEEN Ur Transition Epith Cell 0-5 SEEN Ur Renal Epithelial Cell 0-5 SEEN Urine Bacteria 2+ Urine Mucus 1+ Radiography Diagnostic Testing: Clinical Impression(s) from Imaging Studies Brain CT 10/16/24 17:11 IMPRESSION: No acute intracranial finding. Reading Location: [facility] Chest X-Ray 10/16/24 17:49 IMPRESSION: Negative Chest. Reading Location: [facility] Discharge Plan Triage Chief Complaint: Hypertension ED Provider: Akira Diaz Dx/Rx/DC Orders Prescriptions: No Action levothyroxine 137 MCG tablet 137 mcg PO DAILY estradiol 0.01 % (0.1 mg/gram) cream vaginal buspirone 10 mg capsule 10 mg PO BID ramipril 10 mg capsule 10 mg PO DAILY nebivolol 5 mg tablet 5 mg PO DAILY Primary Care Provider: Oscar Barroso Referrals: Oscar Barroso MD [Primary Care Provider] - Print Language: Swedish
[2024-10-16] MEDS: Ondansetron 4 MG/2 ML Vial IV (17:28)
[2024-10-16 17:42] LABS: Red Blood Cells-Urine 0 SEEN /hpf (0-5)
[2024-10-16 17:44] LABS: Absolute Lymphocyte Count 1.68 X10^3/uL (0.83-4.51); Basophil# 0.05 X10^3/uL; Basophil% 0.4 % (0-1); Color, Urine Straw (Yellow); Eosinophil# 0.01 X10^3/uL; Eosinophils% 0.1 % (0-5); Glucose, Dipstick Normal (Normal); Hematocrit 41.7 % (37-47); Hemoglobin 14.5 g/dL (12.0-15.0); Ketone-Dipstick Negative (Negative); Leukocyte Esterase-Dipstick 500 /ul (Negative); Lymphocyte # 1.68 X10^3/ul (0.83-4.51); Mean Corp Hgb Conc 34.8 g/dL (32-36); Mean Corpuscular Hgb 30.3 pg (27.0-32.0); Mean Corpuscular Volume 87.2 fL (81-99); Mean Platelet Vol. 10.2 fl (6.2-12.0); Monocyte# 0.44 X10^3/uL; Monocyte% 3.9 % (0-10); NRBC Flagged by Analyzer 0 % (0-5); Neutrophil # 8.96 X10^3/uL (2.7-7.7); Neutrophil % 80.2 % (47-70); Nitrite-Dipstick Negative (Negative); Occult Blood-Urine Negative /ul (Negative); Platelet Count 286 K/mm3 (150-450); Protein-Dipstick Negative (Negative); RBC Distribution Width CV 12.2 % (11.6-14.6); Red Blood Count 4.78 M/mm3 (4.2-5.4); Urine Bilirubin Dipstick Negative (Negative); Urine Clarity Clear (Clear); Urine Urobilinogen Normal (Normal); White Blood Count 11.2 K/mm3 (4.4-11.0)
--- NOTE | 2024-10-16 17:49 | RAD_ITS ---
PROCEDURE: CHEST 1 VIEW (PORTABLE) 10/16/2024 REASON FOR EXAM: CHEST PAIN HYPERTENSION TECHNIQUE: Frontal view of the chest. COMPARISON: Chest radiograph 06/20/2022. FINDINGS: Hardware: None. Heart: The heart size is normal. Lungs: No focal consolidation, pleural effusion or pneumothorax. Bones: The bones are unremarkable. RAD/Chest 1 View (Portable) IMPRESSION: Negative Chest. Reading Location: [id number]
--- OUTSIDE RECORDS SUMMARY | 2024-10-16 17:49 | XMS RPT_ITS | CCD ---
Author Organization [facility] Care Team Providers Care Rock Room Worker Name Role Phone Donnell Barroso MD Primary Care Provider [phone] JENNIFER CASTANEDA Attending Unavail able SELF Referring Unavailable BARROSO, DONNELL A Primary Care Unavailable JENNIFER CASTANEDA Referring Unavail able BARROSO, DONNELL A Primary Care Unavailable PAVAN CONTRERAS Attending Unavailable JENNIFER CASTANEDA Referring Unavail able BARROSO, DONNELL A Primary Care Unavailable Dharmesh, Donnell Attending Unavailable Barroso, Donnell Referring Unavailable Barroso, Donnell Primary Care Unavailable Barroso, Donnell Attending Unavailable Barroso, Donnell Primary Care Unavailable Barroso, Donnell Attending Unavailable Barroso, Donnell Primary Care Unavailable Barroso, Donnell Primary Care Unavailable Mikki Kamara NP Attending Unavailable Barroso, Donnell Attending Unavailable Barroso, Donnell Referring Unavailable Barroso, Donnell Primary Care Unavailable Donnell Barroso MD Primary Care Provider [phone] Dr. Donnell Barroso MD Primary Care Provider Anh NGUYEN-Mikki Condon Attending Provider Dr. Donnell Barroso MD Attending Provider [phone] Dr. Donnell Barroso MD Referring Provider [phone] Allergies Allergy Classification Reported Allergen(s) Allergy Type Date of Onset Reaction(s) Facility (12 sources) environmental [Other] Propensity to adverse reactions 7 [facility] Work Phone: (11 sources) Animal Dander; Translations: [ANIMAL DANDER] Drug Allergy 3 Other: See Comments [facility] (11 sources) Mold Spores; Translations: [MOLD SPORES] Propensity to adverse reactions 3 Other: See Comments [facility] (1 source) OTHER; Translations: [OTHER] Propensity to adverse reactions (disorder) 7 [facility] (2 sources) Seasonal allergy Allergy to substance 5 Intolerance [facility] Work Phone: Medications Current Medications Medication Drug Class(es) Dates Sig (Normalized) Sig (Original) Acetaminophen (14 sources) ACETAMINOPHEN (T YLENOL ORAL) Take 2 tablets by mouth as needed. Active ACETAMINOPHEN (T YLENOL ORAL) Take 2 tablets by mouth as needed. 0 Active ACETAMINOPHEN (T YLENOL ORAL) Take by mouth. 0 Active Comment on above: Take by mouth. Take 2 tablets by mo ut as needed. ascorbic acid 100 mg oral ta blet (10 sources) Vitamin C take 1 tablet by mouth once daily Ascorbic Acid (VITAMIN C) 100 mg tablet Take 100 mg by mouth once daily. Active Comment on above: Take 100 mg by mouth once daily. busPIRone hydrochloride 10 m g oral tablet (10 sources) take 1 tablet by mouth twice daily busPIRone (BUSPAR) 10 mg tablet Take 10 mg by mouth two times a day. Active Comment on above: Take 10 mg by mouth two times a day. carboxymethylcellulose sodiu m 5 mg/ml / glycerin 10 mg/ml / polysorbate 80 5 mg/ml ophthalmic solution (10 sources) Non-Standardized Chemical Allergen carboxymethylce-gl ycern-poly80 (REFRESH DIGITAL) 0.5-1-0.5 % drop Use in eyes. Active Comment on above: Use in eyes. cholecalciferol, vitamin D3, (DIALYVITE VITAMIN D ORAL) (10 sources) take 50 ug by mouth once cholecalciferol, vitamin D3, (DIALYVITE VITAMIN D ORAL) Take 50 mcg by mouth. Active take 50 ug by mouth once choleca lciferol, vitamin D3, (DIALYVITE VITAMIN D ORAL) Take 50 mcg by mouth. 0 Active Comment on above: Take 50 mcg by mouth . estradiol 0.1 mg/ml vaginal cream (2 sources) Estrogen Start: 10-14-2024 estradiol (ESTRACE) 0.01 % (0.1 mg/gram) vaginal cream Indications: Genitourinary syndrome of menopause , Vaginal dryness , Urinary frequency Insert 1 gm vaginally every night x 14 nights then insert 1 gm vaginally twice weekly 42.5 g 3 10/14/2024 Active Start: 10-14-2024 estradiol (EST RACE) 0.01 % (0.1 mg/gram) vaginal cream Indications: Genitourinary syndrome of menopause , Vaginal dryness , Urinary frequency Insert 1 gm vaginally every night x 14 nights then insert 1 gm vaginally twice weekly 42.5 g 3 10/14/2024 Active fluticasone (10 sources) Corticosteroid fluticasone prop ionate (FLONASE ALLERGY RELIEF NASAL) Use in the nose. Active fluticasone prop ionate (FLONASE ALLERGY RELIEF NASAL) Use in the nose. 0 Active Comment on above: Use in the nose. levothyroxine sodium 0.137 mg oral tablet (20 sources) l-Thyroxine Start: 11-07-2019 SYNTHROID 137 mcg tablet 04/23/2023 Active Start: 02-04-2018 End: 05-10-2024 levothyroxine (SYNTHROID) 15 0 mcg tablet Daily, and MWF takes an extra 25mcg 02/04/2018 05/10/2024 Discontinued Comment on above: Daily, and MWF takes an extra 25mcg nebivolol 5 mg oral tablet (10 sources) take 1 tablet by mouth once daily nebivolol (BYSTOLIC) 5 mg tablet Take 5 mg by mouth once daily. Active Comment on above: Take 5 mg by mouth o nce daily. phentermine hydrochloride 37.5 mg oral capsule (2 sources) Sympathomimetic Amine Anorectic Start: 023 End: 023 take 37-37.9 capsules by mouth once daily before breakfast Phentermine HCl 37.5 mg capsule Indications: Class 2 severe obesity with serious comorbidity and body mass index (BMI) of 37.0 to 37.9 in adult, unspecified obesity type (HCC) , BMI 37.0-37.9, adult Take 1 capsule by mouth daily before breakfast for 30 days. 30 capsule 0 06/18/2022 07/18/2022 Active Comment on above: Take 1 capsule by mo ut daily before breakfast for 30 days. ramipril 10 mg oral capsule (10 sources) Angiotensin Converting Enzyme Inhibitor take 1 capsule by mouth once daily ramipril (ALTACE) 10 mg capsule Take 10 mg by mouth once daily. Active Comment on above: Take 10 mg by mouth once daily. zinc sulfate 220 mg oral capsule (10 sources) take 1 capsule by mouth once daily zinc sulfate (ZINC-220) 220 mg (50 mg zinc) capsule Take 220 mg by mouth once daily. Active Comment on above: Take 220 mg by mouth once daily. Completed/Discontinued Medications Medication Drug Class(es) Dates Sig (Normalized) Sig (Original) clobetasol propionate 0.0005 mg/mg topical ointment (7 sources) Corticosteroid Start: 03-19-2021 clobetasol (TEMOVATE) 0.05 % ointment Apply 1 application to affected area twice daily. Thin coat to affected area BID x 6 weeks then once per week for mainentance 30 g 0 03/19/2021 Active Comment on above: Apply 1 application to affected area twice daily. Thin coat to affected area BID x 6 weeks then once per week for mainentance loratadine 10 mg oral tablet (3 sources) take 1 tablet by mouth once daily loratadine (CLARITIN) 10 mg tablet Take 10 mg by mouth once daily. 0 Active Comment on above: Take 10 mg by mouth once daily. Magnesium (6 sources) End: 05-10-2024 Magnesium 250 mg tab Take 250 mg by mouth. 05/10/2024 Discontinued Magnesium 250 mg tab Take 250 mg by mouth. Active Magnesium 250 mg tab Take 250 mg by mouth. 0 Active Comment on above: Take 250 mg by mouth . Problems Active Problems Problem Classification Problem Date Documented Date Episodic/Chronic Esophageal disorders (7 sources) Gastroesophageal reflux disease; Translations: [Gastro-esophageal reflux disease without esophagitis] 11-07-2019 Chronic Fluid and electrolyte disorders (7 sources) Dehydration; Translations: [Dehydration] 11-08-2019 Episodic Genitourinary symptoms and ill-defined conditions (6 sources) Urgent desire to urinate; Translations: [Urgency of urination] Onset: 05-10-2024 12-05-2023 Episodic Lymphadenitis (1 source) Localized enlarged lymph nodes; Translations: [Localized enlarged lymph nodes] Onset: 07-21-2024 Episodic Malaise and fatigue (3 sources) Malaise and fatigue; Translations: [Other malaise] Onset: 05-10-2024 05-10-2024 Episodic Menopausal disorders (11 sources) Menopausal symptom; Translations: [Menopausal and female climacteric states] Onset: 10-20-2012 Resolved: 10-20-2013 12-05-2023 Chronic Nonmalignant breast conditions (2 sources) Fibrocystic change of right breast; Translations: [Diffuse cystic mastopathy of right breast] Onset: 05-10-2024 05-10-2024 Chronic Other and unspecified benign neoplasm (1 source) History of polyp of colon; Translations: [Personal history of colonic polyps] 04-07-2023 Episodic Other female genital disorders (1 source) Vaginal dryness; Translations: [Other specified noninflammatory disorders of vagina] 10-14-2024 Episodic Other nutritional; endocrine; and metabolic disorders (1 source) Severe obesity; Translations: [Morbid (severe) obesity due to excess calories] Chronic Other nutritional; endocrine; and metabolic disorders (1 source) Body mass index 30+ - obesity; Translations: [Body mass index (BMI) 37.0-37.9, adult] Chronic Otitis media and related conditions (1 source) Unspecified Eustachian tube disorder, unspecified ear; Translations: [Unspecified Eustachian tube disorder, unspecified ear] Onset: 06-30-2024 Episodic Residual codes; unclassified (1 source) Family history of polyp of colon; Translations: [Family history of colonic polyps] 02-05-2023 Episodic Residual codes; unclassified (1 source) Family history of osteoporosis; Translations: [Family history of osteoporosis] 12-05-2023 Episodic Residual codes; unclassified (1 source) Family history of osteopenia; Translations: [Family history of other diseases of the musculoskeletal system and connective tissue] 05-10-2024 Episodic Residual codes; unclassified (1 source) Postmenopausal state; Translations: [Asymptomatic menopausal state] 05-10-2024 Episodic Residual codes; unclassified (1 source) Family history of other diseases of the musculoskeletal system and connective tissue; Translations: [Family history of osteopenia] Onset: 05-10-2024 Episodic Residual codes; unclassified (1 source) Asymptomatic menopausal state; Translations: [Asymptomatic postmenopausal status] Onset: 05-10-2024 Episodic Thyroid disorders (20 sources) Hypothyroidism; Translations: [Hypothyroidism, unspecified] Onset: 07-08-2005 07-08-2005 Chronic Urinary tract infections (1 source) Recurrent urinary tract infection; Translations: [Urinary tract infection, site not specified] 12-05-2023 Episodic Past or Other Problems Problem Classification Problem Date Documented Date Episodic/Chronic Deficiency and other anemia (14 sources) Anemia; Translations: [Anemia, unspecified] Onset: 10-20-2013 10-20-2013 Episodic Esophageal disorders (7 sources) Esophagitis; Translations: [Esophagitis, unspecified] Resolved: 10-02-2011 10-02-2011 Episodic Headache; including migraine (7 sources) Migraine variants; Translations: [Other migraine, not intractable, without status migrainosus] Resolved: 10-02-2011 10-02-2011 Chronic Immunizations and screening for infectious disease (2 sources) Encounter for screening for human papillomavirus (HPV); Translations: [Encounter for immunization] Onset: 10-08-2023 Episodic Other screening for suspected conditions (not mental disorders or infectious disease) (20 sources) Patient encounter status; Translations: [Encounter for screening mammogram for malignant neoplasm of breast] Onset: 12-22-2015 Episodic Results Test Name Value Interpretation Reference Range Facility Lyme Screen W/Reflex WBon LYME SCREEN Ab Negative Normal Negative [facility] Comment on above: Result Comment: Lyme antibodies not detected. Reflex testing is not indicated. No laboratory evidence of infection with B. burgdorferi (Lyme disease). Negative results may occur in patients recently infected (less than or equal to 14 days) with B. burgdorferi. If recent infection is suspected, repeat testing on a new sample collected in 7 to 14 days is recommended. Performed at: [facility] [id number] Shift Production Supervisor: Leon Dupree PhD, Phone: [phone] Performed By: #### L 3410.9998 #### [facility] [address] [place], [address] Protein Electroph, Son 07-16 Albumin [Mass/Vol] 3.7 g/dL Normal 2.9-4.4 [facility] Comment on above: Performed By: #### L 3410.9998 #### [facility] [address] [place], [address] Albumin/Globulin [Mass ratio] 1.2 {ratio} Normal 0.7-1.7 [facility] Comment on above: Performed By: #### L 3410.9998 #### [facility] [address] [place], [address] ALPHA-1 GLOBUL 0.2 g/dL Normal 0.0-0.4 [facility] Comment on above: Performed By: #### L 3410.9998 #### [facility] [address] [place], [address] ALPHA-2 GLOBUL 0.6 g/dL Normal 0.4-1.0 [facility] Comment on above: Performed By: #### L 3410.9998 #### [facility] [address] [place], [address] BETA GLOBULIN 1.2 g/dL Normal 0.7-1.3 [facility] Comment on above: Performed By: #### L 3410.9998 #### [facility] [address] [place], [address] GAMMA GLOBULIN 1.1 g/dL Normal 0.4-1.8 [facility] Comment on above: Performed By: #### L 3410.9998 #### [facility] [address] [place], [address] Globulin (S) [Mass/Vol] 3.1 g/dL Normal 2.2-3.9 [facility] Comment on above: Performed By: #### L 3410.9998 #### [facility] [address] [place], [address] INTERPRETATION Comment Normal . [facility] Comment on above: Result Comment: Prot ein electrophoresis scan will follow via computer, mail, or supervisor post wave delivery. Performed By: #### L 3410.9998 #### [facility] [address] [place], [address] M-SPIKE Not Observed Normal Not Observed [facility] Comment on above: Performed By: #### L 3410.9998 #### [facility] [address] [place], [address] NOTE: Comment Normal . [facility] Comment on above: Result Comment: The SPE pattern appears unremarkable. Evidence of monoclonal protein is not apparent. Performed By: #### L 3410.9998 #### [facility] [address] [place], [address] Protein [Mass/Vol] 6.8 g/dL Normal 6.0-8.5 [facility] Comment on above: Performed By: #### L 3410.9998 #### [facility] [address] [place], [address] Quantiferon TB-Gold+on 07-16 QFT MITOGEN TORIBIO > 10.00 Normal . [facility] Comment on above: Performed By: #### L 3410.9998 #### [facility] [address] [place], [address] QFT NIL VALUE 0.03 IU/mL Normal . [facility] Comment on above: Performed By: #### L 3410.9998 #### [facility] [address] [place], [address] QFT TB GOLD+ Comment Normal . [facility] Comment on above: Result Comment: Alan tiFERON-TB Gold Plus is a qualitative indirect test for M tuberculosis infection (including disease) and is intended for use in conjunction with risk assessment, radiography, and other medical and diagnostic evaluations. The QuantiFERON-TB Gold Plus result is determined by subtracting the Nil value from either TB antigen (Ag) value. The Mitogen tube serves as a control for the test. Performed By: #### L 3410.9998 #### [facility] [address] [place], [address] QFT TB POS CRIT Negative Normal Negative [facility] Comment on above: Result Comment: No r esponse to M tuberculosis antigens detected. Infection with M tuberculosis is unlikely, but high risk individuals should be considered for additional testing (ATS/IDSA/CDC Clinical Practice Guidelines, 2017). The reference range is an Antigen minus Nil result of <0.35 IU/mL. The specimen received for QuantiFERON testing was incubated by the ordering institution. Specific procedures outlined in our Directory of Services and in the package insert for the QuantiFERON Gold (In Tube) test must be followed to enable for proper stimulation of cells for the production of interferon gamma. Chemiluminescence immunoassay methodology Performed By: #### L 3410.9998 #### [facility] [address] [place], [place], [id number] QFT TB1+ AG TORIBIO 0.04 IU/mL Normal . [facility] Comment on above: Performed By: #### L 3410.9998 #### [facility] [address] [place], [place], [id number] QFT TB2+ AG TORIBIO 0.05 IU/mL Normal . [facility] Comment on above: Performed By: #### L 3410.9998 #### [facility] [address] [place], [place], [id number] ANTINUCLEAR ANTIBODIES DIREC Ton 07-14-2024 MARIELY,DIRECT Negative Normal Negative [facility] Comment on above: Result Comment: Perf ormed at: [facility] [address] [id number] Shift Production Supervisor: Leon Dupree PhD, Phone: [phone] Performed By: #### L 3410.9998 #### [facility] [address] [place], [address] L506.1001on 07-14-2024 Vitamin D 25-OH 31.4 ng/mL Normal 30-100 [facility] Comment on above: Order Comment: [id number] 3 MUMPS PCR SWAB VTM RF Result Comment: Annia min D Status Deficiency: <20 ng/mL (50nmol/L) Insufficiency: 20-30 ng/mL (50-75 nmol/L) Sufficiency: 30-100 ng/mL (75-250 nmol/L) Toxicity: >100 ng/mL (>250 nmol/L) Performed By: #### L 3410.9998 #### [facility] [address] [place], [place], [address] PTHINon 07-14-2024 PTH 66 pg/mL High 11-61 [facility] Comment on above: Order Comment: [id number] 3 MUMPS PCR SWAB VTM RF Performed By: #### L 3410.9998 #### [facility] [address] [place], [place], [id number] MARIELY serumOrdered By: Donnell estevez on 07-13-2024 Anti-Nuclear Antibody Screen Negative Negative [facility] Comment on above: Performed at: [address] [id number] Director: Leon Dupree PhD, Phone: [phone] Absolute neutrophil countOrd ered By: Donnell Barroso on 07-13-2024 Neutrophils (Bld) [#/Vol] 3.8 10*3/uL 2.0-7.7 [facility] Addendum DocumentOrdered By: Donnell Barroso on 07-13-2024 Protein Electrophoresis Note Comment . [facility] Comment on above: The SPE pattern appe ars unremarkable. Evidence ofmonoclonal protein is not apparent. Albumin Elph [Mass/Vol]Order ed By: Donnell Barroso on 07-13-2024 Albumin [Mass/Vol] 3.7 g/dL 2.9-4.4 [facility] Albumin/Globulin Elph [Mass ratio]Ordered By: Donnell Barroso on 07-13-2024 Albumin/Globulin (PEP) 1.2 0.7-1.[address] [facility] Cbobh-6-rlfvqern measurement by protein electrophoresisOrdered By: Donnell Barroso on 07-13-2024 Gqudz-3-Epgkavhbc 0.2 g/dL 0.0-0.4 [facility] Hdsfh-8-mefycacv measurement by protein electrophoresisOrdered By: Donnell Barroso on 07-13-2024 Sreea-1-Jezojqyyg 0.6 g/dL 0.4-1.0 [facility] Anion gap in Serum or Plasma Ordered By: Donnell Barroso on 07-13-2024 Anion gap [Moles/Vol] 12 mmol/L 5-15 [facility] BUN/creatinine ratioOrdered By: Donnell Barroso on 07-13-2024 Urea nitrogen/Creatinine [Mass ratio] 19.9 mg/mg 10-20 [facility] Beta globulin Elph [Mass/Vol ]Ordered By: Donnell Barroso on 07-13-2024 Beta Globulins 1.2 g/dL 0.7-1.3 [facility] Bilirubin, totalOrdered By: Donnell Barroso on 07-13-2024 Bilirubin [Mass/Vol] 0.56 mg/dL 0.00-1.30 [facility] Borrelia burgdorferi (Lyme d isease) total antibody assay with reflex by Western blotOrdered By: Donnell Barroso on 07-13-2024 Lyme Disease Total Antibody Negative Negative [facility] Comment on above: Lyme antibodies not detected. Reflex testing is notindicated.No laboratory evidence of infection with B. burgdorferi(Lyme disease). Negative results may occur in patientsrecently infected (less than or equal to 14 days) with B.burgdorferi. If recent infection is suspected, repeattesting on a new sample collected in 7 to 14 days isrecommended.Performed at: [facility] [place] [id number] Director: Leon Dupree PhD, Phone: [phone] CBC W/Diff, Automatedon 07-03 Absolute Lymph 1.74 X10 3/uL Normal 0.83-4.51 [facility] Comment on above: Performed By: #### L 3400.8000, L501.9520, L101.9900, L100.0100, L3100.5475, L506.1001, L7000.5300, L509.1000, L3100.3450, L500.4050, L501.6710 #### [facility] [address] [place], [address] Absolute Neut 3.8 X10 3/uL Normal 2.0-7.7 [facility] Comment on above: Performed By: #### L 3400.8000, L501.9520, L101.9900, L100.0100, L3100.5475, L506.1001, L7000.5300, L509.1000, L3100.3450, L500.4050, L501.6710 #### [facility] [address] [place], [address] IG% 0.300 Normal 0.0-0.9 [facility] Comment on above: Result Comment: IG% - Immature Granulocytes (promyelocytes, myelocytes and metamyelocytes) > 1% indicates that a LEFT SHIFT is Present. Performed By: #### L 3400.8000, L501.9520, L101.9900, L100.0100, L3100.5475, L506.1001, L7000.5300, L509.1000, L3100.3450, L500.4050, L501.6710 #### [facility] [address] [place], [address] Nucleated RBC (Bld) [#/Vol] 0 10*3/uL Normal 0-5 [facility] Comment on above: Performed By: #### L 3400.8000, L501.9520, L101.9900, L100.0100, L3100.5475, L506.1001, L7000.5300, L509.1000, L3100.3450, L500.4050, L501.6710 #### [facility] [address] [place], [address] RDW SD 38.8 fl Normal 35.1-43.9 [facility] Comment on above: Performed By: #### L 3400.8000, L501.9520, L101.9900, L100.0100, L3100.5475, L506.1001, L7000.5300, L509.1000, L3100.3450, L500.4050, L501.6710 #### [facility] [address] [place], [address] CBC W/Diff, AutomatedOrdered By: Donnell Barroso on 07-13-2024 Basophils/100 WBC (Bld) 0.8 % Normal 0-1 [facility] Comment on above: Performed By: #### L 3400.8000, L501.9520, L101.9900, L100.0100, L3100.5475, L506.1001, L7000.5300, L509.1000, L3100.3450, L500.4050, L501.6710 #### [facility] [address] [place], [address] (459) Eosinophils/100 WBC (Bld) 1.4 % Normal 0-5 [facility] Comment on above: Performed By: #### L 3400.8000, L501.9520, L101.9900, L100.0100, L3100.5475, L506.1001, L7000.5300, L509.1000, L3100.3450, L500.4050, L501.6710 #### [facility] [address] [place], [address] Erythrocyte distribution width (RBC) [Ratio] 12.2 % Normal 11.6-14.6 [facility] Comment on above: Performed By: #### L 3400.8000, L501.9520, L101.9900, L100.0100, L3100.5475, L506.1001, L7000.5300, L509.1000, L3100.3450, L500.4050, L501.6710 #### [facility] [address] [place], [address] Hematocrit (Bld) [Volume fraction] 40.3 % Normal 37-47 [facility] Comment on above: Performed By: #### L 3400.8000, L501.9520, L101.9900, L100.0100, L3100.5475, L506.1001, L7000.5300, L509.1000, L3100.3450, L500.4050, L501.6710 #### [facility] [address] [place], [address] Hemoglobin (Bld) [Mass/Vol] 14.1 g/dL Normal 12.0-15.0 [facility] Comment on above: Performed By: #### L 3400.8000, L501.9520, L101.9900, L100.0100, L3100.5475, L506.1001, L7000.5300, L509.1000, L3100.3450, L500.4050, L501.6710 #### [facility] [address] [facility] [address] [place], [address] Lymphocytes/100 WBC (Bld) 27.8 % Normal 19-41 [facility] Comment on above: Performed By: #### L 3400.8000, L501.9520, L101.9900, L100.0100, L3100.5475, L506.1001, L7000.5300, L509.1000, L3100.3450, L500.4050, L501.6710 #### [facility] [address] [facility] [place], [address] MCH (RBC) [Entitic mass] 30.5 pg Normal 27.0-32.0 [facility] Comment on above: Performed By: #### L 3400.8000, L501.9520, L101.9900, L100.0100, L3100.5475, L506.1001, L7000.5300, L509.1000, L3100.3450, L500.4050, L501.6710 #### [facility] [address] [place], [address] MCHC (RBC) [Mass/Vol] 35.0 g/dL Normal 32-36 [facility] Comment on above: Performed By: #### L 3400.8000, L501.9520, L101.9900, L100.0100, L3100.5475, L506.1001, L7000.5300, L509.1000, L3100.3450, L500.4050, L501.6710 #### [facility] [address] [place], [address] MCV (RBC) [Entitic vol] 87.2 fL Normal 81-99 [facility] Comment on above: Performed By: #### L 3400.8000, L501.9520, L101.9900, L100.0100, L3100.5475, L506.1001, L7000.5300, L509.1000, L3100.3450, L500.4050, L501.6710 #### [facility] [address] [facility] [place], [address] Monocytes/100 WBC (Bld) 8.5 % Normal 0-10 [facility] Comment on above: Performed By: #### L 3400.8000, L501.9520, L101.9900, L100.0100, L3100.5475, L506.1001, L7000.5300, L509.1000, L3100.3450, L500.4050, L501.6710 #### [facility] [address] [facility] [place], [address] Neutrophils/100 WBC (Bld) 61.2 % Normal 47-70 [facility] Comment on above: Performed By: #### L 3400.8000, L501.9520, L101.9900, L100.0100, L3100.5475, L506.1001, L7000.5300, L509.1000, L3100.3450, L500.4050, L501.6710 #### [facility] [address] [facility] [place], [address] Platelet mean volume (Bld) [Entitic vol] 10.8 fL Normal 6.2-12.0 [facility] Comment on above: Performed By: #### L 3400.8000, L501.9520, L101.9900, L100.0100, L3100.5475, L506.1001, L7000.5300, L509.1000, L3100.3450, L500.4050, L501.6710 #### [facility] [address] [place], [address] Platelets (Bld) [#/Vol] 283 10*3/uL Normal 150-450 [facility] Comment on above: Performed By: #### L 3400.8000, L501.9520, L101.9900, L100.0100, L3100.5475, L506.1001, L7000.5300, L509.1000, L3100.3450, L500.4050, L501.6710 #### [facility] [address] [place], [address] RBC (Bld) [#/Vol] 4.62 10*6/uL Normal 4.2-5.4 [facility] Comment on above: Performed By: #### L 3400.8000, L501.9520, L101.9900, L100.0100, L3100.5475, L506.1001, L7000.5300, L509.1000, L3100.3450, L500.4050, L501.6710 #### [facility] [address] [place], [address] WBC (Bld) [#/Vol] 6.3 10*3/uL Normal 4.4-11.0 [facility] Comment on above: Performed By: #### L 3400.8000, L501.9520, L101.9900, L100.0100, L3100.5475, L506.1001, L7000.5300, L509.1000, L3100.3450, L500.4050, L501.6710 #### [facility] [address] [place], [address] CRPon 07-13-2024 C-REACTIVE PROT 6.78 mg/L High 0.0-3.0 [facility] Comment on above: Performed By: #### L 3400.8000, L501.9520, L101.9900, L100.0100, L3100.5475, L506.1001, L7000.5300, L509.1000, L3100.3450, L500.4050, L501.6710 #### [facility] [address] [place], [place], [id number] CRP [Mass/Vol]Ordered By: Norbert Barroso on 07-13-2024 C-Reactive Protein Extended Range 6.78 mg/L High 0.0-3.0 [facility] Carbon dioxide, total [Moles /volume] in Central venous bloodOrdered By: Donnell Barroso on 07-13-2024 CO2 [Moles/Vol] 23.0 mmol/L 21.0-32.0 [facility] Chloride assayOrdered By: Norbert Barroso on 07-13-2024 Chloride [Moles/Vol] 104 mmol/L 98-108 [facility] Comprehensive Metabolic Prof ilon 07-13-2024 Albumin [Mass/Vol] 4.2 g/dL Normal 3.5-5.0 [facility] Comment on above: Performed By: #### L 3400.8000, L501.9520, L101.9900, L100.0100, L3100.5475, L506.1001, L7000.5300, L509.1000, L3100.3450, L500.4050, L501.6710 #### [facility] [address] [place], [place], [id number] Albumin/Globulin [Mass ratio] 1.4 {ratio} Normal 0.9-2.4 [facility] Comment on above: Performed By: #### L 3400.8000, L501.9520, L101.9900, L100.0100, L3100.5475, L506.1001, L7000.5300, L509.1000, L3100.3450, L500.4050, L501.6710 #### [facility] [address] [place], [address] ALK PHOS 68 U/L Normal 35-104 [facility] Comment on above: Performed By: #### L 3400.8000, L501.9520, L101.9900, L100.0100, L3100.5475, L506.1001, L7000.5300, L509.1000, L3100.3450, L500.4050, L501.6710 #### [facility] [address] [place], [address] ALT [Catalytic activity/Vol] 23 U/L Normal <=34 [facility] Comment on above: Performed By: #### L 3400.8000, L501.9520, L101.9900, L100.0100, L3100.5475, L506.1001, L7000.5300, L509.1000, L3100.3450, L500.4050, L501.6710 #### [facility] [address] [place], [place], [id number] AST [Catalytic activity/Vol] 23 U/L Normal <=31 [facility] Comment on above: Performed By: #### L 3400.8000, L501.9520, L101.9900, L100.0100, L3100.5475, L506.1001, L7000.5300, L509.1000, L3100.3450, L500.4050, L501.6710 #### [facility] [address] [place], [address] Bilirubin [Mass/Vol] 0.56 mg/dL Normal 0.00-1.30 [facility] Comment on above: Performed By: #### L 3400.8000, L501.9520, L101.9900, L100.0100, L3100.5475, L506.1001, L7000.5300, L509.1000, L3100.3450, L500.4050, L501.6710 #### [facility] [address] [place], [address] BUN/CRE 19.9 RATIO Normal 10-20 [facility] Comment on above: Performed By: #### L 3400.8000, L501.9520, L101.9900, L100.0100, L3100.5475, L506.1001, L7000.5300, L509.1000, L3100.3450, L500.4050, L501.6710 #### [facility] [address] [place], [address] Calcium [Mass/Vol] 9.1 mg/dL Normal 7.6-11.0 [facility] Comment on above: Performed By: #### L 3400.8000, L501.9520, L101.9900, L100.0100, L3100.5475, L506.1001, L7000.5300, L509.1000, L3100.3450, L500.4050, L501.6710 #### [facility] [address] [place], [address] Chloride [Moles/Vol] 104 mmol/L Normal 98-108 [facility] Comment on above: Performed By: #### L 3400.8000, L501.9520, L101.9900, L100.0100, L3100.5475, L506.1001, L7000.5300, L509.1000, L3100.3450, L500.4050, L501.6710 #### [facility] [address] [place], [address] CO2 [Moles/Vol] 23.0 mmol/L Normal 21.0-32.0 [facility] Comment on above: Performed By: #### L 3400.8000, L501.9520, L101.9900, L100.0100, L3100.5475, L506.1001, L7000.5300, L509.1000, L3100.3450, L500.4050, L501.6710 #### [facility] [address] [place], [place], [id number] (202) Creatinine [Mass/Vol] 0.64 mg/dL Low 0.70-1.20 [facility] Comment on above: Performed By: #### L 3400.8000, L501.9520, L101.9900, L100.0100, L3100.5475, L506.1001, L7000.5300, L509.1000, L3100.3450, L500.4050, L501.6710 #### [facility] [address] [place], [address] (868) GAP 12 Normal 5-15 [facility] Comment on above: Performed By: #### L 3400.8000, L501.9520, L101.9900, L100.0100, L3100.5475, L506.1001, L7000.5300, L509.1000, L3100.3450, L500.4050, L501.6710 #### [facility] [address] [place], [address] (955) GFR/1.73 sq M.predicted among non-blacks MDRD (S/P/Bld) [Vol rate/Area] 104 mL/min/{1.73_m2} Normal >60 [facility] Comment on above: Result Comment: mL/m in/1.73m2 CKD-EPI Creatinine Equation (2020) Performed By: #### L 3400.8000, L501.9520, L101.9900, L100.0100, L3100.5475, L506.1001, L7000.5300, L509.1000, L3100.3450, L500.4050, L501.6710 #### [facility] [address] [place], [place], [id number] (620) Globulin (S) [Mass/Vol] 3.0 g/dL Normal 2.2-4.2 [facility] Comment on above: Performed By: #### L 3400.8000, L501.9520, L101.9900, L100.0100, L3100.5475, L506.1001, L7000.5300, L509.1000, L3100.3450, L500.4050, L501.6710 #### [facility] [address] [place], [address] Glucose [Mass/Vol] 128 mg/dL High 70-99 [facility] Comment on above: Performed By: #### L 3400.8000, L501.9520, L101.9900, L100.0100, L3100.5475, L506.1001, L7000.5300, L509.1000, L3100.3450, L500.4050, L501.6710 #### [facility] [address] [place], [address] Potassium [Moles/Vol] 3.8 mmol/L Normal 3.3-5.1 [facility] Comment on above: Performed By: #### L 3400.8000, L501.9520, L101.9900, L100.0100, L3100.5475, L506.1001, L7000.5300, L509.1000, L3100.3450, L500.4050, L501.6710 #### [facility] [address] [place], [address] Sodium [Moles/Vol] 139 mmol/L Normal 133-145 [facility] Comment on above: Performed By: #### L 3400.8000, L501.9520, L101.9900, L100.0100, L3100.5475, L506.1001, L7000.5300, L509.1000, L3100.3450, L500.4050, L501.6710 #### [facility] [address] [place], [address] T PROT 7.2 g/dL Normal 5.9-8.4 [facility] Comment on above: Performed By: #### L 3400.8000, L501.9520, L101.9900, L100.0100, L3100.5475, L506.1001, L7000.5300, L509.1000, L3100.3450, L500.4050, L501.6710 #### [facility] [address] [place], [place], [id number] Urea nitrogen [Mass/Vol] 13 mg/dL Normal 4-19 [facility] Comment on above: Performed By: #### L 3400.8000, L501.9520, L101.9900, L100.0100, L3100.5475, L506.1001, L7000.5300, L509.1000, L3100.3450, L500.4050, L501.6710 #### [facility] [address] [place], [address] Erythrocyte Sed Rateon 07-13 SED RATE 18 mm/hr Normal 0-30 [facility] Comment on above: Performed By: #### L 3400.8000, L501.9520, L101.9900, L100.0100, L3100.5475, L506.1001, L7000.5300, L509.1000, L3100.3450, L500.4050, L501.6710 #### [facility] [address] [place], [address] Erythrocyte distribution wid th standard deviationOrdered By: Donnell Barroso on 07-13-2024 Erythrocyte distribution width (RBC) [Entitic vol] 38.8 fL 35.1-43.9 [facility] Erythrocyte sedimentation ra teOrdered By: Donnell Barroso on 07-13-2024 ESR (Bld) [Velocity] 18 mm/h 0-30 [facility] GFR/1.73 sq M.predicted doreen g non-blacks MDRD (S/P/Bld) [Vol rate/Area]Ordered By: Donnell Barroso on 07-13-2024 Estimated GFR (MDRD) Non-Af Amer 104 >60 [facility] Comment on above: mL/min/1.73m2 CKD-EP I Creatinine Equation (2020) Gamma globulin measurement b y protein electrophoresisOrdered By: Donnell Barroso on 07-13-2024 Gamma Globulins 1.1 g/dL 0.4-1.8 [facility] Globulin (S) [Mass/Vol]Order ed By: Donnell Barroso on 07-13-2024 Globulin (PEP) 3.1 g/dL 2.2-3.9 [facility] Immature granulocytes/100 WB C Auto (Bld)Ordered By: Donnell Barroso on 07-13-2024 Immature granulocytes/100 WBC (Bld) 0.300 % 0.0-0.9 [facility] Comment on above: IG% - Immature Granu locytes (promyelocytes, myelocytes and metamyelocytes) > 1% indicates that a LEFT SHIFT is Present. Laboratory - Chemistry and C hemistry - challengeOrdered By: Donnell Barroso on 07-13-2024 AST [Catalytic activity/Vol] 23 U/L <32 [facility] Lymphocytes Auto (Unsp spec) [#/Vol]Ordered By: Donnell Barroso on 07-13-2024 Lymphocytes (Bld) [#/Vol] 1.74 10*3/uL 0.83-4.51 [facility] M. tuberculosis tuberculin s reid IFN-g Ql (Bld)Ordered By: Donnell Barroso on 07-13-2024 TB Test (QFT) Antigen 1 0.04 IU/mL . [facility] Nucleated red blood cell per centageOrdered By: Donnell Barroso on 07-13-2024 Nucleated RBC/100 WBC (Bld) [Ratio] 0 % 0-5 [facility] PTH intactOrdered By: Donnell ikdd on 07-13-2024 Parathyroid Hormone (Intact) 66 pg/mL High 11-61 [facility] Potassium (Unsp spec) [Mass/ Vol]Ordered By: Donnell Barroso on 07-13-2024 Potassium [Moles/Vol] 3.8 mmol/L 3.3-5.1 [facility] Protein Fractions Elph [Inte rp]Ordered By: Donnell Barroso on 07-13-2024 Protein Electrophoresis Interpret Comment . [facility] Comment on above: Protein electrophore sis scan will follow via computer,mail, or supervisor post wave delivery. Protein.monoclonal Elph [Mas s/Vol]Ordered By: Donnell Barroso on 07-13-2024 Protein Electrophoresis M-Danial Not Observed g/dL Not Observed [facility] Quantiferon-TB Gold Plus trupti tOrdered By: Donnell Barroso on 07-13-2024 TB Test (QFT) Comment . [facility] Comment on above: QuantiFERON-TB Gold Plus is a qualitative indirect test forM tuberculosis infection (including disease) and isintended for use in conjunction with risk assessment,radiography, and other medical and diagnostic evaluations.The QuantiFERON-TB Gold Plus result is determined bysubtracting the Nil value from either TB antigen (Ag)value. The Mitogen tube serves as a control for the test. TB Test (QFT) Antigen 2 0.05 IU/mL . [facility] TB Test (QFT) Mitogen > 10.00 IU/mL . [facility] TB Test (QFT) Nil 0.03 IU/mL . [facility] TB Test (QFT) Positive Criteria Negative Negative [facility] Comment on above: No response to M tub erculosis antigens detected.Infection with M tuberculosis is unlikely, but high riskindividuals should be considered for additional testing(ATS/IDSA/CDC Clinical Practice Guidelines, 2017). Thereference range is an Antigen minus Nil result of <0.35IU/mL.The specimen received for QuantiFERON testing was incubatedby the ordering institution. Specific procedures outlinedin our Directory of Services and in the package insert forthe QuantiFERON Gold (In Tube) test must be followed toenable for proper stimulation of cells for the productionof interferon gamma. Chemiluminescence immunoassaymethodology Serum creatinine measurement (mass/volume)Ordered By: Donnell Barroso on 07-13-2024 Creatinine [Mass/Vol] 0.64 mg/dL Low 0.70-1.20 [facility] Serum globulin measurementOr dered By: Donnell Barroso on 07-13-2024 Globulin (S) [Mass/Vol] 3.0 g/dL 2.2-4.2 [facility] Serum glucose measurement (m ass/volume)Ordered By: Donnell Barroso on 07-13-2024 Glucose [Mass/Vol] 128 mg/dL High 70-99 [facility] Serum or plasma alanine robles otransferase (ALT) measurementOrdered By: Donnell Barroso on 07-13-2024 ALT [Catalytic activity/Vol] 23 U/L <35 [facility] Serum or plasma albumin kassi urement (mass/volume)Ordered By: Donnell Barroso on 07-13-2024 Albumin [Mass/Vol] 4.2 g/dL 3.5-5.0 [facility] Serum or plasma albumin/glob ulin mass ratioOrdered By: Donnell Barroso on 07-13-2024 Albumin/Globulin [Mass ratio] 1.4 {ratio} 0.9-2.4 [facility] Serum or plasma alkaline apurva sphatase measurementOrdered By: Donnell Barroso on 07-13-2024 ALP [Catalytic activity/Vol] 68 U/L 35-104 [facility] Serum or plasma calcium kassi urement (mass/volume)Ordered By: Donnell Barroso on 07-13-2024 Calcium [Mass/Vol] 9.1 mg/dL 7.6-11.0 [facility] Serum or plasma protein kassi urement (mass/volume)Ordered By: Donnell Barroso on 07-13-2024 Protein [Mass/Vol] 6.8 g/dL 6.0-8.5 [facility] Serum or plasma urea nitroge n measurement (mass/volume)Ordered By: Donnell Barroso on 07-13-2024 Urea nitrogen [Mass/Vol] 13 mg/dL 4-19 [facility] Sodium levelOrdered By: Donnell Barroso on 07-13-2024 Sodium [Moles/Vol] 139 mmol/L 133-145 [facility] TSH DL <= 0.005 mIU/L QnOrde red By: Donnell Barroso on 07-13-2024 Thyroid Stimulating Hormone (TSH) 0.705 uIU/mL 0.300-4.20 0 [facility] Thyroid Stim Hormone (TSH)on 07-13-2024 TSH 0.705 uIU/mL Normal 0.300-4.20 0 [facility] Comment on above: Performed By: #### L 3400.8000, L501.9520, L101.9900, L100.0100, L3100.5475, L506.1001, L7000.5300, L509.1000, L3100.3450, L500.4050, L501.6710 #### [facility] [address] [place], [address] Total proteinOrdered By: Swathi Barroso on 07-13-2024 Protein [Mass/Vol] 7.2 g/dL 5.9-8.4 [facility] Vitamin D, 25-hydroxyOrdered By: Donnell Barroso on 07-13-2024 Vitamin D 25-Hydroxy 31.4 ng/mL 30-100 [facility] Comment on above: Vitamin D StatusDefi ciency: <20 ng/mL (50nmol/L)Insufficiency: 20-30 ng/mL (50-75 nmol/L)Sufficiency: 30-100 ng/mL (75-250 nmol/L)Toxicity: >100 ng/mL (>250 nmol/L) BUN/creatinine ratioOrdered By: Donnell Barroso on 07-03-2024 Urea nitrogen/Creatinine [Mass ratio] 15.5 mg/mg 10-20 [facility] Bilirubin, totalOrdered By: Donnell Barroso on 07-03-2024 Bilirubin [Mass/Vol] 0.50 mg/dL 0.00-1.30 [facility] Calculated very low density lipoprotein (VLDL) cholesterol measurementOrdered By: Donnell Barroso on 07-03-2024 VLDL Cholesterol 24 mg/dL 5-40 [facility] Carbon dioxide measurementOr dered By: Donnell Barroso on 07-03-2024 CO2 [Moles/Vol] 26.2 mmol/L 22.0-29.0 [facility] Chloride measurementOrdered By: Donnell Barroso on 07-03-2024 Chloride [Moles/Vol] 102 mmol/L 96-108 [facility] Comprehensive Metabolic Prof ilon 07-03-2024 Albumin [Mass/Vol] 4.2 g/dL Normal 3.5-5.0 [facility] Comment on above: Order Comment: 83859 3 MUMPS PCR SWAB VTM RF Performed By: #### L 3410.9998 #### [facility] [address] [place], [address] Albumin/Globulin [Mass ratio] 1.4 {ratio} Normal 0.9-2.4 [facility] Comment on above: Order Comment: 42564 3 MUMPS PCR SWAB VTM RF Performed By: #### L 3410.9998 #### [facility] [address] [place], [address] ALK PHOS 72 U/L Normal 35-104 [facility] Comment on above: Order Comment: 57901 3 MUMPS PCR SWAB VTM RF Performed By: #### L 3410.9998 #### [facility] [address] [place], [address] ALT [Catalytic activity/Vol] 32 U/L Normal <=34 [facility] Comment on above: Order Comment: 90161 3 MUMPS PCR SWAB VTM RF Performed By: #### L 3410.9998 #### [facility] [address] [place], [address] Anion gap [Moles/Vol] 9 mmol/L Normal 5-15 [facility] Comment on above: Order Comment: 87291 3 MUMPS PCR SWAB VTM RF Performed By: #### L 3410.9998 #### [facility] [address] [place], [address] AST [Catalytic activity/Vol] 27 U/L Normal <=31 [facility] Comment on above: Order Comment: 79757 3 MUMPS PCR SWAB VTM RF Performed By: #### L 3410.9998 #### [facility] [address] [place], [address] Bilirubin [Mass/Vol] 0.50 mg/dL Normal 0.00-1.30 [facility] Comment on above: Order Comment: 76664 3 MUMPS PCR SWAB VTM RF Performed By: #### L 3410.9998 #### [facility] [address] [place], [address] BUN/CRE 15.5 RATIO Normal 10-20 [facility] Comment on above: Order Comment: 24801 3 MUMPS PCR SWAB VTM RF Performed By: #### L 3410.9998 #### [facility] [address] [place], [address] Calcium [Mass/Vol] 8.9 mg/dL Normal 7.6-11.0 [facility] Comment on above: Order Comment: 05986 3 MUMPS PCR SWAB VTM RF Performed By: #### L 3410.9998 #### [facility] [address] [place], [address] Chloride [Moles/Vol] 102 mmol/L Normal 96-108 [facility] Comment on above: Order Comment: 45563 3 MUMPS PCR SWAB VTM RF Performed By: #### L 3410.9998 #### [facility] [address] [place], [address] CO2 [Moles/Vol] 26.2 mmol/L Normal 22.0-29.0 [facility] Comment on above: Order Comment: 48704 3 MUMPS PCR SWAB VTM RF Performed By: #### L 3410.9998 #### [facility] [address] [place], [address] Creatinine [Mass/Vol] 0.59 mg/dL Low 0.70-1.20 [facility] Comment on above: Order Comment: 46872 3 MUMPS PCR SWAB VTM RF Performed By: #### L 3410.9998 #### [facility] [address] [place], [address] GFR/1.73 sq M.predicted among non-blacks MDRD (S/P/Bld) [Vol rate/Area] 106 mL/min/{1.73_m2} Normal >60 [facility] Comment on above: Order Comment: 97030 3 MUMPS PCR SWAB VTM RF Result Comment: mL/m in/1.73m2 CKD-EPI Creatinine Equation (2020) Performed By: #### L 3410.9998 #### [facility] [address] [place], [address] Globulin (S) [Mass/Vol] 3.0 g/dL Normal 2.2-4.2 [facility] Comment on above: Order Comment: 19057 3 MUMPS PCR SWAB VTM RF Performed By: #### L 3410.9998 #### [facility] [address] [place], [address] Glucose [Mass/Vol] 104 mg/dL High 70-99 [facility] Comment on above: Order Comment: 69317 3 MUMPS PCR SWAB VTM RF Performed By: #### L 3410.9998 #### [facility] [address] [place], [address] Potassium [Moles/Vol] 4.0 mmol/L Normal 3.3-5.1 [facility] Comment on above: Order Comment: 54816 3 MUMPS PCR SWAB VTM RF Performed By: #### L 3410.9998 #### [facility] [address] [place], [address] Sodium [Moles/Vol] 138 mmol/L Normal 133-145 [facility] Comment on above: Order Comment: 25802 3 MUMPS PCR SWAB VTM RF Performed By: #### L 3410.9998 #### [facility] [address] [place], [address] T PROT 7.1 g/dL Normal 5.9-8.4 [facility] Comment on above: Order Comment: 00537 3 MUMPS PCR SWAB VTM RF Performed By: #### L 3410.9998 #### [facility] [address] [place], [address] Urea nitrogen [Mass/Vol] 9 mg/dL Normal 4-19 [facility] Comment on above: Order Comment: 69357 3 MUMPS PCR SWAB VTM RF Performed By: #### L 3410.9998 #### [facility] [address] [facility] [address] GFR/1.73 sq M.predicted doreen g non-blacks MDRD (S/P/Bld) [Vol rate/Area]Ordered By: Donnell Barroso on 07-03-2024 Estimated GFR (MDRD) Non-Af Amer 106 >60 [facility] Comment on above: mL/min/1.73m2 CKD-EP I Creatinine Equation (2020) Hemoglobin A1con 07-03-2024 HbA1c (Bld) [Mass fraction] 5.7 % Normal <=5.6 [facility] Comment on above: Order Comment: 06887 3 MUMPS PCR SWAB VTM RF Performed By: #### L 3410.9998 #### [facility] [address] [facility] [address] Hemoglobin A1c percentageOrd ered By: Donnell Barroso on 07-03-2024 HbA1c (Bld) [Mass fraction] 5.7 % >5.7 [facility] LDL calc ser/plasOrdered By: Donnell Barroso on 07-03-2024 LDL Cholesterol, Calculated 157 mg/dL [facility] Comment on above: Mvejiihnly=773-613 m g/dL & Higher Ghsn=444 mg/dL or greater Laboratory - Chemistry and C hemistry - challengeOrdered By: Donnell Barroso on 07-03-2024 AST [Catalytic activity/Vol] 27 U/L <32 [facility] Lipid Profileon 07-03-2024 CHOL:HDL 4.50 Normal [facility] Comment on above: Order Comment: 84202 3 MUMPS PCR SWAB VTM RF Performed By: #### L 3410.9998 #### [facility] [address] [place], [address] Cholesterol [Mass/Vol] 232 mg/dL High <=[address] [facility] Comment on above: Order Comment: [id number] MUMPS PCR SWAB VTM RF Result Comment: Chol esterol level, Desirable <200 mg/dL Borderline high cholesterol 200-239 mg/dL High cholesterol >=240 mg/dL Recommendations of the NCEP Adult Treatment Panel for the following risk-cutoff thresholds for the [place] population. Performed By: #### [id number] #### [facility] [address] [place], [address] Cholesterol in HDL [Mass/Vol] 52 mg/dL Normal [facility] Comment on above: Order Comment: [id number] MUMPS PCR SWAB VTM RF Result Comment: Janet onal Cholesterol Education Program (NCEP) guidelines: <40 mg/dL: Low HDL-cholesterol (major risk factor for CHD) >= 60 mg/dL: High HDL-cholesterol (negative risk factor for CHD) HDL-cholesterol is affected by a number of factors, e.g. smoking, exercise, hormones, sex and age. Performed By: #### L 3410.9998 #### [facility] [address] [facility] [address] Cholesterol in LDL [Mass/Vol] 157 mg/dL Normal [facility] Comment on above: Order Comment: 09214 3 MUMPS PCR SWAB VTM RF Result Comment: Bord ttywqq=679-010 mg/dL Higher Kgsm=441 mg/dL or greater Performed By: #### L 3410.9998 #### [facility] [address] [place], [address] Cholesterol in VLDL [Mass/Vol] 24 mg/dL Normal 5-40 [facility] Comment on above: Order Comment: 08219 3 MUMPS PCR SWAB VTM RF Performed By: #### L 3410.9998 #### [facility] [address] [place], [address] Triglyceride [Mass/Vol] 120 mg/dL Normal [facility] Comment on above: Order Comment: 51060 3 MUMPS PCR SWAB VTM RF Result Comment: The drugs N-Acetylcysteine and Metamizole may falsely depress this assay. Normal range: <150 mg/dL Borderline High: 150-199 mg/dL High: 200-499 mg/dL Very High: >500 mg/dL Performed By: #### L 3410.9998 #### [facility] [address] [place], [address] Screening total cholesterol/ high density lipoprotein (HDL) cholesterol ratioOrdered By: Donnell Barroso on 07-03-2024 Cholesterol.total/Jocelyn sterol in HDL [Mass ratio] 4.50 {ratio} [facility] Serum creatinine measurement (mass/volume)Ordered By: Donnell Barroso on 07-03-2024 Creatinine [Mass/Vol] 0.59 mg/dL Low 0.70-1.20 [facility] Serum globulin measurementOr dered By: Donnell Barroso on 07-03-2024 Globulin (S) [Mass/Vol] 3.0 g/dL 2.2-4.2 [facility] Serum glucose measurement (m ass/volume)Ordered By: Donnell Barroso on 07-03-2024 Glucose [Mass/Vol] 104 mg/dL High 70-99 [facility] Serum or plasma alanine robles otransferase (ALT) measurementOrdered By: Donnell Barroso on 07-03-2024 ALT [Catalytic activity/Vol] 32 U/L <35 [facility] Serum or plasma albumin kassi urement (mass/volume)Ordered By: Donnell Barroso on 07-03-2024 Albumin [Mass/Vol] 4.2 g/dL 3.5-5.0 [facility] Serum or plasma albumin/glob ulin mass ratioOrdered By: Donnell Barroso on 07-03-2024 Albumin/Globulin [Mass ratio] 1.4 {ratio} 0.9-2.4 [facility] Serum or plasma alkaline apurva sphatase measurementOrdered By: Donnell Barroso on 07-03-2024 ALP [Catalytic activity/Vol] 72 U/L 35-104 [facility] Serum or plasma anion gap de termination (moles/volume)Ordered By: Donnell Barroso on 07-03-2024 Anion gap [Moles/Vol] 9 mmol/L 5-15 [facility] Serum or plasma calcium kassi urement (mass/volume)Ordered By: Donnell Barroso on 07-03-2024 Calcium [Mass/Vol] 8.9 mg/dL 7.6-11.0 [facility] Serum or plasma cholesterol in HDL measurement (mass/volume)Ordered By: Donnell Barroso on 07-03-2024 Cholesterol in HDL [Mass/Vol] 52 mg/dL >40 [facility] Comment on above: National Cholesterol Education Program (NCEP) guidelines:<40 mg/dL: Low HDL-cholesterol (major risk factor for CHD)>= 60 mg/dL: High HDL-cholesterol (negative risk factor for CHD)HDL-cholesterol is affected by a number of factors, e.g. smoking, exercise, hormones, sex and age. Serum or plasma cholesterol measurement (mass/volume)Ordered By: Donnell Barroso on 07-03-2024 Cholesterol [Mass/Vol] 232 mg/dL High <[address] [facility] Comment on above: Cholesterol level, D esirable <200 mg/dLBorderline high cholesterol 200-239 mg/dLHigh cholesterol >=240 mg/dLRecommendations of the NCEP Adult Treatment Panel for the following risk-cutoff thresholds for the [place] population. Serum or plasma potassium me asurementOrdered By: Donnell Barroso on 07-03-2024 Potassium [Moles/Vol] 4.0 mmol/L 3.3-5.1 [facility] Serum or plasma sodium measu rement (moles/volume)Ordered By: Donnell Barroso on 07-03-2024 Sodium [Moles/Vol] 138 mmol/L 133-145 [facility] Serum or plasma urea nitroge n measurement (mass/volume)Ordered By: Donnell Barroso on 07-03-2024 Urea nitrogen [Mass/Vol] 9 mg/dL 4-19 [facility] T4 Free Directon 07-03-2024 T4 FREE DIRECT 2.00 ng/dL High 0.76-1.46 [facility] Comment on above: Order Comment: Order Date: 01/02/24Order Info: [id number] - CMPOrder Info: [id number] - LIPIDOrder Info: [id number] - TSHOrder Info: [id number] - T4F Performed By: #### L 501.9520, L100.0100, L500.4050 #### [facility] [place], [address] T4 freeOrdered By: Donnell kendrick on 07-03-2024 Free T4 [Mass/Vol] 2.00 ng/dL High 0.76-1.46 [facility] TSH DL <= 0.005 mIU/L QnOrde red By: Donnell Barroso on 07-03-2024 Thyroid Stimulating Hormone (TSH) 0.341 uIU/mL 0.300-4.20 0 [facility] Thyroid Stim Hormone (TSH)on 07-03-2024 TSH 0.341 uIU/mL Normal 0.300-4.20 0 [facility] Comment on above: Order Comment: 01033 3 MUMPS PCR SWAB VTM RF Performed By: #### L 3410.9998 #### [facility] [address] [place], [place], [address] Total proteinOrdered By: Swathi Barroso on 07-03-2024 Protein [Mass/Vol] 7.1 g/dL 5.9-8.4 [facility] Triglycerides measurementOrd ered By: Donnell Barroso on 07-03-2024 Triglyceride [Mass/Vol] 120 mg/dL <199 [facility] Comment on above: The drugs N-Acetylcy steine and Metamizole may falsely depress this assay. Normal range: <150 mg/dLBorderline High: 150-199 mg/dLHigh: 200-499 mg/dLVery High: >500 mg/dL L3410.9998on 06-17-2024 [facility] Misc. COMMENT Normal . [facility] Comment on above: Order Comment: 89313 3 MUMPS PCR SWAB VTM RF Result Comment: Test Ordered: [id number] Mumps, PCR, Swab Test(s) 977951-Phccb RNA was developed and its performance characteristics determined by [employer]. It has not been cleared or approved by the Food and Drug Administration. Mumps RNA Note: BN Not Detected Reference Range: Not Detected Performed at: BN - [address] [id number] Shift Production Supervisor: Michael Pompa MD, Phone: [phone] Performed at: [address] [id number] Shift Production Supervisor: Leon Dupree PhD, Phone: [phone] Performed By: #### L 3410.9998 #### [facility] [address] [place], [place], [address] Bacteria Ur Culton 5 Bacteria identified Cx Nom (U) ORGANISM ID: 1 10,000 -<50,000 CFU/ml Normal urogenital vitaly Normal [facility] Comment on above: Performed By: #### 6 30-4 #### [facility] CLIA [id number] [address] [facility] [address] [facility] CNOVon 05-10-2024 CNOV Office Visit (OBGYWM ) LILLIAN ROMERO ([id number]) 1970 F Date Time Provider Department 05/10/24 3:15 PM PAVAN CONTRERAS During your visit today, we recorded the following information about you: Blood pressure Weight Height 132/70 100.2 kg 1.645 m Pavan Contreras APRN.CRIMINAL RESEARCH SPECIALIST 05/10/2024 4:07 PM Signed Data Abstractor offered: Patient declines. Mtz is a 53 year old who presents for an annual gynecologic exam without complaints. She does have hot flashes, some night sweats, frequent urination and nocturia. She is interested in HRT She also reports intermittent right breast pain for the past couple of months. Postmenopausal: Yes, hx of ablation HRT use: No. Still get period: No LMP: unknown (2014) HPV vaccine: No HPV: 02/24/2019 negative Last pap smear: 02/24/2019 normal History of abnormal pap: No, all prior PAP smears have been normal Last mammogram: 2023 normal History of abnormal mammogram: Yes - breast biopsy 2015 Patient concerns for STD exposure: No. OB History T3 L3 SAB3 IAB0 Ectopic0 Multiple0 Live Births0 [employer] History LMP: 10/03/2014 (Exact Date), Ablation Age at Menarche: 10 Age at First : Age at Menopause: [employer] History Comments: Sexual Activity: Yes; Male Contraception: [...] 04/20/2018 repeat 5 years COLONOSCOPY SCREENING 04/07/2023 tubular adenoma of right colon, next colonoscopy due in 5 years ENDOMETRIAL ABLTJ THERMAL W/O HYSTEROSCOPIC GUID 04/13/2013 ESOPHAGOGASTRODUODENOSCOPY TRANSORAL DIAGNOSTIC 11/14/2003 EGD LAPS ABD PRTMANDOMENTUM DX W/WO SPEC BR/WA SPX Laparoscopy PAST SURGICAL HISTORY OF Left 2010 Hallux limitus TONSILLECTOMY PRIMARY/SECONDARY Tonsillectomy FAMILY HISTORY Problem Relation Age of Onset Hypertension Mother ULCERS/hypercholestremia other (epilipsy) Mother Hypertension Father HYPERCHOLESTREMIA Melanoma Father ear other (HYPOTHYRODISM) Sister Arthritis Sister Neck and Back Surgery other (HYPOTHYROIDISM) Sister Heart Paternal Grandmother Heart Paternal Grandfather [place] SOCIAL HISTORY Social History Tobacco Use Smoking status: Never Smokeless tobacco: Never Vaping Use Vaping status: Never Used Substance Use Topics Alcohol use: Yes Comment: Occasionally Drug use: No REVIEW OF SYSTEMS Abdomen: No abdominal pain, nausea, vomiting, diarrhea, or constipation. No bloating, early satiety, indigestion, or increased flatulence. Bladder: No dysuria, gross hematuria, urinary frequency, urinary urgency, or incontinence Breast: No breast lumps, nipple d/c, overlying skin changes, redness or skin retraction + pain in right breast/axillary Allergies and current medication updated:Yes SENSITIVE EXAM: The sensitive examination was discussed with the Patient or Patient's Authorized Utility Specialist. As applicable, any other physician, advance practice provider, medical student, or other health professional student that will be observing or involved in the sensitive examination for educational or training purposes was discussed with the Patient or Authorized Utility Specialist. The Patient or Authorized Utility Specialist has agreed to proceed with the sensitive examination. (Sensitive examination includes inspection and/or palpation of the breasts, pelvis, prostate and anorectal regions). EXAM: BP 132/70 Ht 5' 4.768 (1.65m) Wt 221 lb (100.2kg) LMP 10/03/2014 BMI 37.05 kg/(m2). GENERAL: pleasant, female in no apparent distress HEENT: Normocephalic, atraumatic, mucus membranes moist, and no lesions NECK: Supple, full range of motion, no adenopathy, and thyroid normal DERMATOLOGY: Normal, without lesions, non-icteric, and non-hirsute BREAST: soft, non-tender, symmetric, no dominant mass, normal nipple-areolar complex, no lymphadenopathy, and no nipple discharge + fibrocystic to right breast CHEST: Normal inspiratory effort ABDOMEN: soft, non-tender, and no masses PELVIC: (more content not included)... Normal [facility] HIGH RISK HUMAN PAPILLOMA GE (HPV), PCR FOR DETECTION AND GENOTYPINGon 05-10-2024 HPV 16 Ag Ql (Unsp spec) Not detected Normal Not detected [facility] Comment on above: Order Comment: Speci men Type: FLUID SPECIMEN Ordering Facility: [facility] Address: [address] [place] [address] Performed By: #### H PVHRT #### [facility] CLIA [id number] [address] [place] [address] [place] HPV 18 Ag Ql (Unsp spec) Not detected Normal Not detected [facility] Comment on above: Order Comment: Speci men Type: FLUID SPECIMEN Ordering Facility: [facility] Address: [address] [place] [address] Performed By: #### H PVHRT #### [facility] CLIA [id number] [address] [place] [address] [place] HPV 31+33+35+39+45+51+52+56 +58+59+66+68 DNA DIDIER+probe Ql (Cvx) Not detected Normal Not detected [facility] Comment on above: Order Comment: Speci men Type: FLUID SPECIMEN Ordering Facility: [facility] Address: [address] [place] [address] Result Comment: High Risk HPV Other Type includes HPV types 31, 33, 35, 39, 45, 51, 52, 56, 58, 59, 66 and 68. Performed By: #### H PVHRT #### [facility] CLIA [id number] [address] [place] [address] [place] [address] [place] WOODY SCREENING W TOMOon 05-10 WOODY SCREENING W JORDAN * * *Final Report* * * DATE OF EXAM: May 10 2024 3:08PM [id number] - WOODY SCREENING W JORDAN / PROCEDURE REASON: Encounter for screening mammogram for malignant neoplasm of breast * * * * Physician Interpretation * * * * RESULT: [place] [address] [place] [address] #[id number] - WOODY SCREENING W JORDAN HISTORY: Patient is 53 years old and is seen for screening and focal pain in the right breast. Patient states no personal history of breast cancer. Patient states no personal history of other cancers. COMPARISON STUDIES: The present examination has been compared to prior imaging studies dated 02/24/2019 (mammogram), 02/28/2020 (mammogram), 03/19/2021 (mammogram), 03/22/2022 (mammogram) and 04/17/2023 (mammogram). MAMMOGRAM TECHNIQUE: The study was acquired using full field digital technology and interpreted from soft copy. Digital Breast Tomosynthesis (DBT) images were obtained and used to assist in the interpretation of this examination. Computer-aided detection was utilized by the radiologist in the interpretation of this examination. MAMMOGRAM FINDINGS: The breasts are almost entirely fatty. Patient reports intermittent discomfort in the upper outer right breast for several months. This was marked with a triangle marker. There is no subjacent mammographic abnormality and predominantly fatty breast tissue throughout the breasts and in this area, improving the sensitivity of mammography especially in this area. Clinical follow-up and management is suggested. Intramammary lymph node in the 9:00 posterior depth right breast is stable long-term. Biopsy marking clip in the upper inner anterior depth right breast is stable. There are no significant interval changes. No suspicious masses, calcifications or other abnormalities are seen in either breast. IMPRESSION: No mammographic evidence of malignancy. Clinical follow-up and management of the patient's intermittent right breast pain is recommended. If further evaluation with ultrasound is felt to be clinically indicated, this could be performed in the future. There is no suspicious imaging finding to correspond with the area of clinical concern. Clinical correlation and follow-up is recommended with imaging follow-up as clinically indicated. BI-RADS Category 2: Benign RISK: Based on the Tyrer-Cuzick (TC) risk assessment model, this patient has a 5.6% lifetime risk of developing breast cancer, meaning they are at average risk for developing breast cancer. However, this is only an estimate based on available history provided on the patient's questionnaire. We encourage all patients to talk with their providers about these results, further recommendations for managing breast health, and appropriate supplemental screening options if the patient has dense breast tissue. Interpreting Radiologist: Hussain Sousa M.D. Electronically signed on: 05/11/2024 Extraction Machine Operator: RAFAELA Transcribe Date/Time: May 10 2024 2:38P Dictated by: HUSSAIN SOUSA MD This examination was interpreted and the report reviewed and electronically signed by: HUSSAIN SOUSA MD on May 11 2024 7:41AM EST [id number] Normal [facility] PAP TESTon 05-10-2024 ADEQUACY Satisfactory for interpretation. Normal [facility] Comment on above: Order Comment: Jill batres Type: FLUID SPECIMEN Ordering Facility: [facility] Address: [address] [place] [address] Performed By: #### L [id number] #### [facility] CLIA [id number] [address] [place] [address] [place] [address] [place] CASE REPORT Normal [facility] Comment on above: Order Comment: Speci men Type: FLUID SPECIMEN Ordering Facility: [facility] Address: [address] [place] [address] Result Comment: Gyne cologic Cytology Report Case: [id number] Authorizing Provider: Pavan Contreras APRN.CRIMINAL RESEARCH SPECIALIST Collected: 05/10/2024 03:51 PM Ordering Location: OB/Gynecology Received: 05/10/2024 05:00 PM First Screen: Emigdio Roque, CT, ASCP Specimen: Pap Test, ThinPrep, Cervix Performed By: #### L [id number] #### [facility] CLIA [id number] [address] [place] [address] [place] CLINICAL HISTORY, CYTOLOGY, EMBLEM DRAWER IN Post Menopausal Normal [facility] Comment on above: Order Comment: Speci men Type: FLUID SPECIMEN Ordering Facility: [facility] Address: [address] [place] [address] Performed By: #### L [id number] #### [facility] CLIA [id number] [address] [place] [address] [place] FINAL PERFORMING LAB Normal [facility] Comment on above: Order Comment: Speci men Type: FLUID SPECIMEN Ordering Facility: [facility] Address: [address] [place] [address] Result Comment: Tech nical component, educational guidance counselor screening performed at [facility], [address] [place], [place] [id number] CLIA# [id number] Diagnostic interpretation performed at [facility], [address] [place] [address] CLIA# [id number] Clinical Trials Manager: Mendel Thacker M.D. Performed By: #### L [id number] #### [facility] CLIA [id number] [address] [place] [address] [place] INTERPRETATION, CYTOLOGY, EMBLEM DRAWER IN Normal [facility] Comment on above: Order Comment: Speci men Type: FLUID SPECIMEN Ordering Facility: [facility] Address: [address] [place] [address] Result Comment: Nega tive for intraepithelial lesion or malignancy. Performed By: #### L [id number] #### [facility] CLIA [id number] [address] [place] [address] [place] PAP DISCLAIMER COMMENT The Pap Smear is a screening test for cervical cancer. False negative results occur with all screening tests, emphasizing the need for rescreening at recommended intervals, and clinical correlation. Normal [facility] Comment on above: Order Comment: Speci men Type: FLUID SPECIMEN Ordering Facility: [facility] Address: [address] [place] [address] Performed By: #### L [id number] #### [facility] CLIA [id number] [address] [place] [address] [place] PAP FISHER CLAM COMMENT This specimen has be en analyzed by the ThinPrep Imaging System, an automated imaging and review system, which assists the laboratory in evaluating cells on ThinPrep Pap tests. Following automated imaging, selected live from every slide are reviewed by a educational guidance counselor. Normal [facility] Comment on above: Order Comment: Speci men Type: FLUID SPECIMEN Ordering Facility: [facility] Address: [address] [place] [address] Performed By: #### L [id number] #### [facility] CLIA [id number] [address] [place] [address] OF [place] CNOVon 12-05-2023 CNOV Office Visit (OBGYWM ) LILLIAN ROMERO ([id number]) 1970 F Date Time Provider Department 12/05/23 11:40 AM JENNIFER CASTANEDA OBJAREDWJodi During your visit today, we recorded the following information about you: Blood pressure Weight 124/72 96.6 kg Jennifer Castaneda MD 12/05/2023 12:51 PM Signed Data Abstractor offered: Patient declines. Lillian Romero is a 53 year old female who presents for concerns regarding recurrent UTIs. Pt reports no symptoms today- pt reports last UTI was in September 2023.pt reports she had at least 3 UTIs last year. Pt states she has some Urgency and mild USI so she wears a pad that causes a lot of moisture which she wonders if it contributes. Pt also during if she is through menopause completely. Patient has not had a menses in years however still has hot flashes at times. Patient reports hot flashes are worse after having caffeine. Patient reports does not get regular exercise or watch her diet. Patient also has questions about osteoporosis. She states that her mother was diagnosed with osteoporosis has had a back fracture. Patient offers no other complaints today. OB History T3 L3 SAB3 IAB0 Ectopic0 Multiple0 Live Births0 [employer] History LMP: 10/03/2014 (Exact Date), Ablation Age at Menarche: Age at First : Age at Menopause: [employer] History Comments: Sexual Activity: Yes; Male Contraception: Vasectomy PAST MEDICAL HISTORY No date: Abdominal pain, unspecified site Comment: Resolved No date: Allergic gastroenteritis No date: Allergic rhinitis No date: Anemia No date: Avulsion fracture No date: Cardiac murmur No date: Cervicalgia No date: Chronic sinusitis No date: Diarrhea No date: Esophagitis, unspecified No date: Essential hypertension No date: Eustachian tube dysfunction No date: Folliculitis No date: Fracture of great toe Comment: right toe No date: Generalized anxiety disorder No date: Generalized anxiety disorder No date: GERD (gastroesophageal reflux disease) No date: Goiter No date: Headaches No date: Hypothyroidism No date: IBS (irritable bowel syndrome) No date: Malaise and fatigue No date: Migraines No date: Nausea alone No date: Otalgia No date: Right arm pain No date: Rosacea No date: Unspecified hypothyroidism No date: Urine frequency No date: Vitamin D deficiency PAST SURGICAL HISTORY 12/19/2015: BIOPSY BREAST OPEN INCISIONAL; Right Comment: Bx of breast, incisional 05/03/2013: COLONOSCOPY FLX DX W/COLLJ SPEC WHEN PFRMD Comment: Colonoscopy 04/20/2018: COLONOSCOPY FLX DX W/COLLJ SPEC WHEN PFRMD Comment: repeat 5 years 04/07/2023: COLONOSCOPY SCREENING Comment: tubular adenoma of right colon, next colonoscopy due in 5 years 04/13/2013: ENDOMETRIAL ABLTJ THERMAL W/O HYSTEROSCOPIC GUID 11/14/2003: ESOPHAGOGASTRODUODENOSCOPY TRANSORAL DIAGNOSTIC Comment: EGD No date: LAPS ABD PRTMANDOMENTUM DX W/WO SPEC BR/WA SPX Comment: Laparoscopy 2010: PAST SURGICAL HISTORY OF; Left Comment: Hallux limitus No date: TONSILLECTOMY PRIMARY/SECONDARY Comment: Tonsillectomy FAMILY HISTORY Problem Relation Age of Onset Hypertension Mother ULCERS/hypercholestremia other (epilipsy) Mother Hypertension Father HYPERCHOLESTREMIA Melanoma Father ear other (HYPOTHYRODISM) Sister Arthritis Sister Neck and Back Surgery other (HYPOTHYROIDISM) Sister Heart Paternal Grandmother Heart Paternal Grandfather [place] Social History Tobacco Use Smoking status: Never Smokeless tobacco: Never Vaping Use Vaping Use: Never used Substance Use Topics Alcohol use: Yes Comment: Occasionally Drug use: No Current Outpatient Medications Medication Sig SYNTHROID 137 mcg tablet Magnesium 250 mg tab Take 250 mg [...] D ORAL) Take 50 mcg by mouth. [id number] y80 (REFRESH DIGITAL) 0.5-1-0.5 % drop Use in eyes. levothyroxine (SYNTHROID) 150 mcg tablet Daily, and MWF takes an extra 25mcg (Patient taking differently: Take 1.37 mcg by mouth once daily. Daily, and MWF takes an extra 25mcg) ACETAMINOPHEN (TYLENOL ORAL) Take 2 tablets by mouth as needed. No current facility-administered medications for this visit. Allergies As of Date: 12/05/2023 Allergen Noted Reaction ANIMAL DANDER 01/31/2023 Other: See Comments ENVIRONMENTAL [OTHER] 07/09/2006 MOLD SPORES 01/31/2023 Other: See Comments Ful (more content not included)... Normal [facility] [place] UA DIP, URINE (POC)on 2023 BILIRUBIN UA (POCT) Negative Negative [facility] CLARITY UA (POCT) Clear [facility] COLOR UA (POCT) Yellow [facility] GLUCOSE UA (POCT) Negative Negative mg/dL [facility] Hemoglobin Ql (U) Negative Negative [facility] KETONE UA (POCT) Negative Negative mg/dL [facility] LEUKOCYTES UA (POCT) Negative Negative [facility] NITRITE UA (POCT) Negative Negative [facility] PH UA (POCT) 5.5 4.5 - 8.0 [facility] Protein Ql (U) Negative Negative mg/dL [facility] SPECIFIC GRAVITY UA (POCT) >=1.030 1.005 - 1.030 [facility] UROBILINOGEN UA (POCT) 0.2 Nancy l E.U./dL [facility] Location:[facility], [address] [facility], [place], [address] [facility] POINT OF CARE [facility] V-Zoster IgG (Immunity)on V ZOSTER IgG > 4000 Normal Immune >165 [facility] Comment on above: Result Comment: Nega tive <135 Equivocal 135 - 165 Positive >165 A positive result generally indicates exposure to the pathogen or administration of specific immunoglobulins, but it is not indication of active infection or stage of disease. Performed at: - [facility] [address], [place] [id number] Shift [employer] Supervisor: Leon Dupree PhD, Phone: [phone] Performed By: #### L 9015.0000 #### [facility] [address] [place], [address] CBC W/Diff, Automatedon 05-2 Absolute Lymph 2.36 X10 3/uL Normal 0.83-4.51 [facility] Comment on above: Performed By: #### L [id number], L100.0100, [id number] #### [facility] [address] [place], [address] Absolute Neut 6.0 X10 3/uL Normal 2.0-7.7 [facility] Comment on above: Performed By: #### L [id number], L100.0100, [id number] #### [facility] [address] [place], [address] Basophils/100 WBC (Bld) 0.9 % Normal 0-1 [facility] Comment on above: Performed By: #### L 501.9520, L100.0100, [id number] #### [facility] [address] [place], [address] Eosinophils/100 WBC (Bld) 1.1 % Normal 0-5 [facility] Comment on above: Performed By: #### L 501.9520, L100.0100, [id number] #### [facility] [address] [place], [address] Erythrocyte distribution width (RBC) [Ratio] 12.4 % Normal 11.6-14.6 [facility] Comment on above: Performed By: #### L [id number], L100.0100, [id number] #### [facility] [address] [place], [address] Hematocrit (Bld) [Volume fraction] 42.7 % Normal 37-47 [facility] Comment on above: Performed By: #### L [id number], L100.0100, [id number] #### [facility] [address] [place], [address] Hemoglobin (Bld) [Mass/Vol] 14.4 g/dL Normal 12.0-15.0 [facility] Comment on above: Performed By: #### L 501.9520, L100.0100, [id number] #### [facility] [address] [place], [address] IG% 0.300 Normal 0.0-0.9 [facility] Comment on above: Result Comment: IG% - Immature Granulocytes (promyelocytes, myelocytes and metamyelocytes) > 1% indicates that a LEFT SHIFT is Present. Performed By: #### L 501.9520, L100.0100, L500.4050 #### [facility] [address] [place], [address] Lymphocytes/100 WBC (Bld) 25.7 % Normal 19-41 [facility] Comment on above: Performed By: #### L [id number], L100.0100, [id number] #### [facility] [address] [place], [address] MCH (RBC) [Entitic mass] 29.9 pg Normal 27.0-32.0 [facility] Comment on above: Performed By: #### L [id number], L100.0100, [id number] #### [facility] [address] [place], [address] MCHC (RBC) [Mass/Vol] 33.7 g/dL Normal 32-36 [facility] Comment on above: Performed By: #### L [id number], L100.0100, [id number] #### [facility] [address] [place], [address] MCV (RBC) [Entitic vol] 88.8 fL Normal 81-99 [facility] Comment on above: Performed By: #### L [id number], L100.0100, [id number] #### [facility] [address] [place], [address] Monocytes/100 WBC (Bld) 6.9 % Normal 0-10 [facility] Comment on above: Performed By: #### L [id number], L100.0100, [id number] #### [facility] [address] [place], [address] Neutrophils/100 WBC (Bld) 65.1 % Normal 47-70 [facility] Comment on above: Performed By: #### L [id number], L100.0100, [id number] #### [facility] [address] [place], [address] Nucleated RBC (Bld) [#/Vol] 0 10*3/uL Normal 0-5 [facility] Comment on above: Performed By: #### L [id number], L100.0100, [id number] #### [facility] [address] [place], [address] Platelet mean volume (Bld) [Entitic vol] 10.3 fL Normal 6.2-12.0 [facility] Comment on above: Performed By: #### L [id number], L100.0100, [id number] #### [facility] [address] [place], [address] Platelets (Bld) [#/Vol] 331 10*3/uL Normal 150-450 [facility] Comment on above: Performed By: #### L [id number], L100.0100, [id number] #### [facility] [address] [place], [address] RBC (Bld) [#/Vol] 4.81 10*6/uL Normal 4.2-5.4 [facility] Comment on above: Performed By: #### L [id number], L100.0100, [id number] #### [facility] [address] [place], [address] RDW SD 40.4 fl Normal 35.1-43.9 [facility] Comment on above: Performed By: #### L [id number], L100.0100, [id number] #### [facility] [address] [place], [address] WBC (Bld) [#/Vol] 9.2 10*3/uL Normal 4.4-11.0 [facility] Comment on above: Performed By: #### L [id number], L100.0100, [id number] #### [facility] [address] [place], [address] [facility] 09-23-2023 Albumin [Mass/Vol] 3.8 g/dL Normal 3.2-5.0 [facility] Comment on above: Performed By: #### L [id number], L100.0100, [id number] #### [facility] [address] [place], [address] Albumin/Globulin [Mass ratio] 1.0 {ratio} Normal 0.9-2.4 [facility] Comment on above: Performed By: #### L [id number], L100.0100, [id number] #### [facility] [address] [place], [address] ALK P 67 U/L Normal 45-117 [facility] Comment on above: Performed By: #### L [id number], L100.0100, [id number] #### [facility] [address] [place], [address] ALT [Catalytic activity/Vol] 28 U/L Normal 13-56 [facility] Comment on above: Performed By: #### L [id number], L100.0100, [id number] #### [facility] [address] [place], [address] AST [Catalytic activity/Vol] 19 U/L Normal 15-37 [facility] Comment on above: Performed By: #### L [id number], L100.0100, [id number] #### [facility] [address] [place], [address] Bilirubin [Mass/Vol] 0.40 mg/dL Normal 0.20-1.00 [facility] Comment on above: Result Comment: For patients on eltrombopag therapy, use of Dimension [place] TBIL is not recommended. Performed By: #### L 501.9520, L100.0100, [id number] #### [facility] [address] [place], [address] BUN/CRE 19.1 RATIO Normal 10-20 [facility] Comment on above: Performed By: #### L [id number], L100.0100, [id number] #### [facility] [address] [place], [address] CA,Total 9.2 mg/dL Normal 8.5-10.1 [facility] Comment on above: Performed By: #### L [id number], L100.0100, [id number] #### [facility] [address] [place], [address] Chloride [Moles/Vol] 103 mmol/L Normal 98-107 [facility] Comment on above: Performed By: #### L [id number], L100.0100, [id number] #### [facility] [address] [place], [address] CO2 [Moles/Vol] 26.0 mmol/L Normal 21.0-32.0 [facility] Comment on above: Performed By: #### L 501.9520, L100.0100, [id number] #### [facility] [address] [place], [address] Creatinine [Mass/Vol] 0.68 mg/dL Normal 0.55-1.02 [facility] Comment on above: Result Comment: The validity of the calculated GFR GFRAA in patients over 70 years has not been determined. Clinical correlation is essential. Performed By: #### L 501.9520, L100.0100, [id number] #### [facility] [address] [place], [address] EST GFR - AA 116 mL/min Normal >60 [facility] Comment on above: Result Comment: Afri can Marshallese GFR Calc Performed By: #### L [id number], L100.0100, [id number] #### [facility] [address] [place], [address] GAP 9 Normal 5-15 [facility] Comment on above: Performed By: #### L [id number], L100.0100, [id number] #### [facility] [address] [place], [address] GFR/1.73 sq M.predicted among non-blacks MDRD (S/P/Bld) [Vol rate/Area] 96 mL/min/{1.73_m2} Normal >60 [facility] Comment on above: Result Comment: Non- GFR Calc Performed By: #### L [id number], L100.0100, [id number] #### [facility] [address] [place], [address] Globulin (S) [Mass/Vol] 3.8 g/dL Normal 2.2-4.2 [facility] Comment on above: Performed By: #### L [id number], L100.0100, [id number] #### [facility] [address] [place], [address] Glucose [Mass/Vol] 106 mg/dL Normal 74-106 [facility] Comment on above: Result Comment: Fast ing Glucose result from 100 to 125 mg/dL suggests IMPAIRED HOMEOSTASIS per A.D.A. criteria. Performed By: #### L [id number], L100.0100, L500.4050 #### [facility] [address] [place], [address] Potassium [Moles/Vol] 3.7 mmol/L Normal 3.5-5.1 [facility] Comment on above: Performed By: #### L [id number], L100.0100, [id number] #### [facility] [address] [place], [address] Sodium [Moles/Vol] 138 mmol/L Normal 136-145 [facility] Comment on above: Performed By: #### L [id number], L100.0100, [id number] #### [facility] [address] [place], [address] T PROT 7.6 g/dL Normal 6.4-8.2 [facility] Comment on above: Performed By: #### L [id number], L100.0100, [id number] #### [facility] [address] [place], [address] Urea nitrogen [Mass/Vol] 13 mg/dL Normal 7-18 [facility] Comment on above: Performed By: #### L [id number], L100.0100, [id number] #### [facility] [address] [place], [address] Thyroid Stim Hormone (TSH)on 09-23-2023 TSH 0.36 uIU/mL Normal 0.358-3.74 [facility] Comment on above: Performed By: #### L [id number], L100.0100, L500.4050 #### [facility] [address] [place], [address] Basophil percentageOrdered B y: Donnell Barroso on 05-12-2023 Bilirubin [Mass/Vol] 0.50 mg/dL 0.20-1.00 [facility] Comment on above: For patients on eltr ombopag therapy, use of Dimension [place] TBIL is not recommended. Chloride [Moles/Vol] 104 mmol/L 98-107 [facility] Glucose [Mass/Vol] 124 mg/dL 74-106 [facility] Comment on above: Fasting Glucose resu lt from 100 to 125 mg/dL suggests IMPAIRED HOMEOSTASIS per A.D.A. criteria. Potassium [Moles/Vol] 3.8 mmol/L 3.5-5.1 [facility] Protein [Mass/Vol] 7.7 g/dL 6.4-8.2 [facility] Sodium [Moles/Vol] 139 mmol/L 136-145 [facility] - Chemistry and C hemistry - challengeOrdered By: Donnell Barroso on 05-12-2023 ALP [Catalytic activity/Vol] 83 U/L 45-117 [facility] ALT [Catalytic activity/Vol] 44 U/L 13-56 [facility] CO2 [Moles/Vol] 29.0 mmol/L 21.0-32.0 [facility] Globulin (S) [Mass/Vol] 3.9 g/dL 2.2-4.2 [facility] Urea nitrogen/Creatinine [Mass ratio] 13.2 mg/mg 10-20 [facility] No Panel InformationOrdered By: Donnell Barroso on 05-12-2023 Estimated GFR (MDRD) Amer 102 mL/min >60 [facility] Comment on above: GFR Calc Estimated GFR (MDRD) Non-Af Amer 84 mL/min >60 [facility] Comment on above: Non- GFR Calc Thyroid Stimulating Hormone (TSH) 0.78 uIU/mL 0.358-3.74 [facility] Serum or plasma albumin kassi urement (mass/volume)Ordered By: Donnell Barroso on 05-12-2023 Albumin [Mass/Vol] 3.8 g/dL 3.2-5.0 [facility] Serum or plasma albumin/glob ulin mass ratioOrdered By: Donnell Barroso on 05-12-2023 Albumin/Globulin [Mass ratio] 1.0 {ratio} 0.9-2.4 [facility] Serum or plasma calcium kassi urement (mass/volume)Ordered By: Donnell Barroso on 05-12-2023 Calcium [Mass/Vol] 8.6 mg/dL 8.5-10.1 [facility] Serum or plasma creatinine m easurement (mass/volume)Ordered By: Donnell Barroso on 05-12-2023 Creatinine [Mass/Vol] 0.76 mg/dL 0.55-1.02 [facility] Comment on above: The validity of the calculated GFR & GFRAA in patients over 70 years has not been determined. Clinical correlation is essential. Serum or plasma urea nitroge n measurement (mass/volume)Ordered By: Donnell Barroso on 05-12-2023 Urea nitrogen [Mass/Vol] 10 mg/dL 7-18 [facility] Thin prep Papanicolaou smear with manual screeningOrdered By: Donnell Barroso on 05-12-2023 Thin prep Papanicolaou smear with manual screening 28 U/L 15-37 [facility] Thin prep Papanicolaou smear with manual screening 6 5-15 [facility] COLONOSCOPY SCREENINGon 12-0 [facility] Basophil percentageOrdered B y: Donnell Barroso on 01-02-2023 Chloride [Moles/Vol] 105 mmol/L 98-107 [facility] Glucose [Mass/Vol] 82 mg/dL 74-106 [facility] Potassium [Moles/Vol] 3.9 mmol/L 3.5-5.1 [facility] Sodium [Moles/Vol] 137 mmol/L 136-145 [facility] - Chemistry and C hemistry - challengeOrdered By: Donnell Barroso on 01-02-2023 CO2 [Moles/Vol] 26.0 mmol/L 21.0-32.0 [facility] Urea nitrogen/Creatinine [Mass ratio] 19.7 mg/mg 10-20 [facility] No Panel InformationOrdered By: Donnell Barroso on 01-02-2023 Estimated GFR (MDRD) Amer 102 mL/min >60 [facility] Comment on above: GFR Calc Estimated GFR (MDRD) Non-Af Amer 84 mL/min >60 [facility] Comment on above: Non- GFR Calc Thyroid Stimulating Hormone (TSH) 0.44 uIU/mL 0.358-3.74 [facility] Serum or plasma calcium kassi urement (mass/volume)Ordered By: Donnell Barroso on 01-02-2023 Calcium [Mass/Vol] 9.4 mg/dL 8.5-10.1 [facility] Serum or plasma creatinine m easurement (mass/volume)Ordered By: Donnell Barroso on 01-02-2023 Creatinine [Mass/Vol] 0.76 mg/dL 0.55-1.02 [facility] Comment on above: The validity of the calculated GFR & GFRAA in patients over 70 years has not been determined. Clinical correlation is essential. Serum or plasma urea nitroge n measurement (mass/volume)Ordered By: Donnell Barroso on 01-02-2023 Urea nitrogen [Mass/Vol] 15 mg/dL 7-18 [facility] Thin prep Papanicolaou smear with manual screeningOrdered By: Donnell Barroso on 01-02-2023 Thin prep Papanicolaou smear with manual screening 6 5-15 [facility] 24 hour urine normetanephrin e measurement (mass/time)Ordered By: Dr. Barroso on 06-30-2022 Normetanephrine (24H U) [Mass/Time] 432 ug/24 hr 131-612 [facility] No Panel InformationOrdered By: Dr. Barroso on 06-30-2022 Urine Metanephrines 24 Hour 106 ug/24 hr 36-209 [facility] Comment on above: Performed at: [address] [id number] Director: Michael Pompa MD, Phone: [phone] Urine Normetanephrine 188 ug/L Undefined [facility] Urine metanephrine measureme nt (mass/volume)Ordered By: Dr. Barroso on 06-30-2022 Metanephrine (U) [Mass/Vol] 46 ug/L Undefined [facility] Basophil percentageOrdered B y: Dr. Barroso on 06-25-2022 Basophil percentage Not Reportable [facility] Bilirubin [Mass/Vol] 0.50 mg/dL 0.20-1.00 [facility] Comment on above: For patients on eltr ombopag therapy, use of Dimension [place] TBIL is not recommended. Chloride [Moles/Vol] 104 mmol/L 98-107 [facility] Glucose [Mass/Vol] 103 mg/dL 74-106 [facility] Comment on above: Fasting Glucose resu lt from 100 to 125 mg/dL suggests IMPAIRED HOMEOSTASIS per A.D.A. criteria. Potassium [Moles/Vol] 3.5 mmol/L 3.5-5.1 [facility] Protein [Mass/Vol] 7.6 g/dL 6.4-8.2 [facility] Sodium [Moles/Vol] 139 mmol/L 136-145 [facility] Erythrocyte sedimentation ra teOrdered By: Dr. Barroso on 06-25-2022 ESR (Bld) [Velocity] 10 mm/h 0-30 [facility] - Chemistry and C hemistry - challengeOrdered By: Dr. Barroso on 06-25-2022 ALP [Catalytic activity/Vol] 68 U/L 45-117 [facility] ALT [Catalytic activity/Vol] 40 U/L 13-56 [facility] CO2 [Moles/Vol] 28.0 mmol/L 21.0-32.0 [facility] Globulin (S) [Mass/Vol] 3.7 g/dL 2.2-4.2 [facility] Magnesium [Mass/Vol] 2.0 mg/dL 1.6-2.6 [facility] Urea nitrogen/Creatinine [Mass ratio] 11.9 mg/mg 10-20 [facility] No Panel InformationOrdered By: Dr. Barroso on 06-25-2022 Anti-Nuclear Antibody Screen Negative Negative [facility] Comment on above: Performed at: [address] [id number] Director: Leon Dupree PhD, Phone: [phone] Centromere B Antibody Not Reportable [facility] Estimated GFR (MDRD) Amer 102 mL/min >60 [facility] Comment on above: GFR Calc Estimated GFR (MDRD) Non-Af Amer 85 mL/min >60 [facility] Comment on above: Non- GFR Calc MANAGER ECONOMIC Antibody Not Reportable [facility] Serum DNA double strand anti body assay (units/volume)Ordered By: Dr. Barroso on 06-25-2022 DNA double strand Ab Qn (S) Not Reportable [facility] Serum Lilliam-1 antibody assay (u nits/volume)Ordered By: Dr. Barroso on 06-25-2022 Lilliam-1 extractable nuclear Ab Qn (S) Not Reportable [facility] Serum Scl-70 extractable nuc lear antibody assay (units/volume)Ordered By: Dr. Barroso on 06-25-2022 SCL-70 extractable nuclear Ab Qn (S) Not Reportable [facility] Serum Dharmesh extractable nucl ear antibody detectionOrdered By: Dr. Barroso on 06-25-2022 Dharmesh extractable nuclear Ab Ql (S) Not Reportable [facility] Serum or plasma C reactive p rotein measurement (mass/volume)Ordered By: Dr. Barroso on 06-25-2022 CRP [Mass/Vol] 7.99 mg/L 0.0-3.0 [facility] Comment on above: C-Reactive Protein ( CRP) provides useful information for thediagnosis, therapy and monitoring of inflammatory processesand associated diseases. For the evaluation of Relative Riskfor Cardiovascular Disease, a High Sensitivity CRP (HSCRP)should be ordered. Serum or plasma albumin kassi urement (mass/volume)Ordered By: Dr. Barroso on 06-25-2022 Albumin [Mass/Vol] 3.9 g/dL 3.2-5.0 [facility] Serum or plasma albumin/glob ulin mass ratioOrdered By: Dr. Barroso on 06-25-2022 Albumin/Globulin [Mass ratio] 1.1 {ratio} 0.9-2.4 [facility] Serum or plasma calcium kassi urement (mass/volume)Ordered By: Dr. Barroso on 06-25-2022 Calcium [Mass/Vol] 9.4 mg/dL 8.5-10.1 [facility] Serum or plasma creatinine m easurement (mass/volume)Ordered By: Dr. Barroso on 06-25-2022 Creatinine [Mass/Vol] 0.76 mg/dL 0.55-1.02 [facility] Comment on above: The validity of the calculated GFR & GFRAA in patients over 70 years has not been determined. Clinical correlation is essential. Serum or plasma urea nitroge n measurement (mass/volume)Ordered By: Dr. Barroso on 06-25-2022 Urea nitrogen [Mass/Vol] 9 mg/dL 7-18 [facility] Thin prep Papanicolaou smear with manual screeningOrdered By: Dr. Barroso on 06-25-2022 Thin prep Papanicolaou smear with manual screening 20 U/L 15-37 [facility] Thin prep Papanicolaou smear with manual screening 7 5-15 [facility] Absolute lymphocyte countOrd ered By: Dr. Hyde on 06-20-2022 Lymphocytes Auto (Unsp spec) [#/Vol] 1.73 10*3/uL 0.83-4.51 [facility] Basophil percentageOrdered B y: Dr. Hyde on 06-20-2022 Basophils/100 WBC (Bld) 0.6 % 0-1 [facility] Chloride [Moles/Vol] 104 mmol/L 98-107 [facility] Eosinophils/100 WBC (Bld) 0.1 % 0-5 [facility] Glucose [Mass/Vol] 126 mg/dL 74-106 [facility] Comment on above: Fasting Glucose resu lt greater than or equal to 126 mg/dL suggests DIABETES MELLITUS per A.D.A. criteria. Neutrophils (Bld) [#/Vol] 5.9 10*3/uL 2.0-7.7 [facility] Neutrophils/100 WBC (Bld) 72.5 % 47-70 [facility] Potassium [Moles/Vol] 3.8 mmol/L 3.5-5.1 [facility] Sodium [Moles/Vol] 139 mmol/L 136-145 [facility] WBC (Bld) [#/Vol] 8.2 10*3/uL 4.4-11.0 [facility] Blood erythrocytes count (nu mber/volume)Ordered By: Dr. Hyde on 06-20-2022 RBC (Bld) [#/Vol] 4.83 10*6/uL 4.2-5.4 [facility] Blood hemoglobin measurement (mass/volume)Ordered By: Dr. Hyde on 06-20-2022 Hemoglobin (Bld) [Mass/Vol] 14.5 g/dL 12.0-15.0 [facility] Blood lymphocytes/100 leukoc ytesOrdered By: Dr. Hyde on 06-20-2022 Lymphocytes/100 WBC (Bld) 21.1 % 19-41 [facility] Blood monocytes/100 leukocyt esOrdered By: Dr. Hyde on 06-20-2022 Monocytes/100 WBC (Bld) 5.5 % 0-10 [facility] Blood platelet mean volumeOr dered By: Dr. Hyde on 06-20-2022 Platelet mean volume (Bld) [Entitic vol] 9.7 fL 6.2-12.0 [facility] Determination of erythrocyte mean corpuscular volume (MCV)Ordered By: Dr. Hyde on 06-20-2022 MCV (RBC) [Entitic vol] 88.0 fL 81-99 [facility] Hematocrit Auto (Bld) [Volum e fraction]Ordered By: Dr. Hyde on 06-20-2022 Hematocrit (Bld) [Volume fraction] 42.5 % 37-47 [facility] - Chemistry and C hemistry - challengeOrdered By: Dr. Hyde on 06-20-2022 CO2 [Moles/Vol] 27.0 mmol/L 21.0-32.0 [facility] Urea nitrogen/Creatinine [Mass ratio] 12.8 mg/mg 10-20 [facility] - Hematology and Cell countsOrdered By: Dr. Hyde on 06-20-2022 Erythrocyte distribution width (RBC) [Entitic vol] 40.3 fL 35.1-43.9 [facility] Erythrocyte distribution width (RBC) [Ratio] 12.5 % 11.6-14.6 [facility] Immature granulocytes/100 WBC (Bld) 0.200 % 0.0-0.9 [facility] Comment on above: IG% - Immature Granu locytes (promyelocytes, myelocytes and metamyelocytes) > 1% indicates that a LEFT SHIFT is Present. MCH (RBC) [Entitic mass] 30.0 pg 27.0-32.0 [facility] Nucleated RBC/100 WBC (Bld) [Ratio] 0 % 0-5 [facility] MCHC Auto (RBC) [Mass/Vol]Or dered By: Dr. Hyde on 06-20-2022 MCHC (RBC) [Mass/Vol] 34.1 g/dL 32-36 [facility] No Panel InformationOrdered By: Dr. Hyde on 06-20-2022 Troponin I High Sensitivity 5 pg/mL 3.0-54.0 [facility] [facility] Comment on above: Please Note: New Trupti t Units and Gender Specific Reference Ranges. For more information see Policy Stat Procedure [place] High Sensitivity Troponin (TNIH) and attachments. Estimated Creatinine Clearance Calc 74.19 ml/min [facility] Estimated GFR (MDRD) Amer 99 mL/min >60 [facility] Comment on above: GFR Calc Estimated GFR (MDRD) Non-Af Amer 82 mL/min >60 [facility] Comment on above: Non- GFR Calc Platelets bldOrdered By: Dr. Hyde on 06-20-2022 Platelets (Bld) [#/Vol] 340 10*3/uL 150-450 [facility] Serum or plasma calcium kassi urement (mass/volume)Ordered By: Dr. Hyde on 06-20-2022 Calcium [Mass/Vol] 9.6 mg/dL 8.5-10.1 [facility] Serum or plasma creatinine m easurement (mass/volume)Ordered By: Dr. Hyde on 06-20-2022 Creatinine [Mass/Vol] 0.78 mg/dL 0.55-1.02 [facility] Comment on above: The validity of the calculated GFR & GFRAA in patients over 70 years has not been determined. Clinical correlation is essential. Serum or plasma urea nitroge n measurement (mass/volume)Ordered By: Dr. Hyde on 06-20-2022 Urea nitrogen [Mass/Vol] 10 mg/dL 7-18 [facility] Thin prep Papanicolaou smear with manual screeningOrdered By: Dr. Hyde on 06-20-2022 Thin prep Papanicolaou smear with manual screening 8 5-15 [facility] CBC panel Auto (Bld)on 06-18 Erythrocyte distribution width (RBC) [Ratio] 12.4 % 11.5 - 15.0 % [facility] Hematocrit (Bld) [Volume fraction] 38.5 % 36.0 - 46.0 % [facility] Hemoglobin (Bld) [Mass/Vol] 13.3 g/dL 11.5 - 15.5 g/dL [facility] MCH (RBC) [Entitic mass] 30.0 pg 26.0 - 34.0 pg [facility] MCHC (RBC) [Mass/Vol] 34.5 g/dL 30.5 - 36.0 g/dL [facility] MCV (RBC) [Entitic vol] 86.7 fL 80.0 - 100.0 fL [facility] Nucleated RBC (Bld) [#/Vol] <0.01 k/uL [facility] Platelet mean volume (Bld) [Entitic vol] 9.8 fL 9.0 - 12.7 fL [facility] Platelets (Bld) [#/Vol] 311 10*3/uL 150 - 400 k/uL [facility] RBC (Bld) [#/Vol] 4.44 10*6/uL 3.90 - 5.20 m/uL [facility] WBC (Bld) [#/Vol] 10.80 10*3/uL 3.70 - 11.00 k/uL [facility] Comprehensive metabolic 2000 panelon 06-18-2022 Albumin [Mass/Vol] 4.5 g/dL 3.9 - 4.9 g/dL [facility] ALP [Catalytic activity/Vol] 76 U/L 34 - 123 U/L [facility] ALT [Catalytic activity/Vol] 33 U/L 7 - 38 U/L [facility] Anion gap [Moles/Vol] 14 mmol/L 9 - 18 mmol/L [facility] AST [Catalytic activity/Vol] 29 U/L 13 - 35 U/L [facility] Bilirubin [Mass/Vol] 0.3 mg/dL 0.2 - 1 .3 mg/dL [facility] Calcium [Mass/Vol] 9.0 mg/dL 8.5 - 10. 2 mg/dL [facility] Chloride [Moles/Vol] 99 mmol/L 97 - 10 5 mmol/L [facility] CO2 [Moles/Vol] 24 mmol/L 22 - 30 mmol/L [facility] Creatinine [Mass/Vol] 0.58 mg/dL 0.58 - 0.96 mg/dL [facility] Estimated Glomerular Filtration Rate 108 mL/min/1.73m >=60 mL/min/1.7 3m [facility] Glucose [Mass/Vol] 118 mg/dL High 74 - 99 mg/dL [facility] Potassium [Moles/Vol] 4.0 mmol/L 3.7 - 5.1 mmol/L [facility] Protein [Mass/Vol] 7.3 g/dL 6.3 - 8.0 g/dL [facility] Sodium [Moles/Vol] 137 mmol/L 136 - 144 mmol/L [facility] Urea nitrogen [Mass/Vol] 10 mg/dL 7 - 21 mg/dL [facility] Absolute lymphocyte counton 09-19-2021 Lymphocytes Auto (Unsp spec) [#/Vol] 1.78 10*3/uL 0.83-4.51 [facility] Work Phone: [phone] Basophil percentageon 2021 Basophils/100 WBC (Bld) 0.9 % 0-1 [facility] Work Phone: [phone] Bilirubin [Mass/Vol] 0.50 mg/dL 0.20-1.00 [facility] Work Phone: Comment on above: For patients on eltr ombopag therapy, use of Dimension [place] TBIL is not recommended. Chloride [Moles/Vol] 107 mmol/L 98-107 [facility] Work Phone: [phone] Cholesterol [Mass/Vol] 234 mg/dL <[address] [facility] Work Phone: [phone] Comment on above: <200 mg/dL Desirable 200-240 mg/dL Borderline >240 mg/dL High Risk Eosinophils/100 WBC (Bld) 1.8 % 0-5 [facility] Work Phone: [phone] Glucose [Mass/Vol] 118 mg/dL 74-106 [facility] Work Phone: Comment on above: Fasting Glucose resu lt from 100 to 125 mg/dL suggests IMPAIRED HOMEOSTASIS per A.D.A. criteria. Neutrophils (Bld) [#/Vol] 4.0 10*3/uL 2.0-7.7 [facility] Work Phone: [phone] Neutrophils/100 WBC (Bld) 59.8 % 47-70 [facility] Work Phone: [phone] Potassium [Moles/Vol] 3.6 mmol/L 3.5-5.1 [facility] Work Phone: [phone] Protein [Mass/Vol] 7.2 g/dL 6.4-8.2 [facility] Work Phone: [phone] Sodium [Moles/Vol] 140 mmol/L 136-145 [facility] Work Phone: [phone] Triglyceride [Mass/Vol] 126 mg/dL [facility] Work Phone: [phone] Comment on above: The drugs N-Acetylcy steine and Metamizole may falsely depress this assay.Serum Triglycerides Reference Interval Normal <150 mg/dL Borderline high 150 - 199 mg/dL High 200 - 499 mg/dL Very High > or = 500 mg/dL WBC (Bld) [#/Vol] 6.7 10*3/uL 4.4-11.0 [facility] Work Phone: [phone] Blood erythrocytes count (nu mber/volume)on 09-19-2021 RBC (Bld) [#/Vol] 4.71 10*6/uL 4.2-5.4 [facility] Work Phone: [phone] Blood hemoglobin measurement (mass/volume)on 09-19-2021 Hemoglobin (Bld) [Mass/Vol] 14.2 g/dL 12.0-15.0 [facility] Work Phone: Blood lymphocytes/100 leukoc yteson 09-19-2021 Lymphocytes/100 WBC (Bld) 26.6 % 19-41 [facility] Work Phone: Blood monocytes/100 leukocyt eson 09-19-2021 Monocytes/100 WBC (Bld) 10.6 % 0-10 [facility] Work Phone: Blood platelet mean volumeon 09-19-2021 Platelet mean volume (Bld) [Entitic vol] 10.5 fL 6.2-12.0 [facility] Work Phone: [phone] Determination of erythrocyte mean corpuscular volume (MCV)on 09-19-2021 MCV (RBC) [Entitic vol] 90.0 fL 81-99 [facility] Work Phone: [phone] Hematocrit Auto (Bld) [Volum e fraction]on 09-19-2021 Hematocrit (Bld) [Volume fraction] 42.4 % 37-47 [facility] Work Phone: [phone] Laboratory - Chemistry and C hemistry - challengeon 09-19-2021 ALP [Catalytic activity/Vol] 76 U/L 45-117 [facility] Work Phone: [phone] ALT [Catalytic activity/Vol] 41 U/L 13-56 [facility] Work Phone: [phone] CO2 [Moles/Vol] 28.0 mmol/L 21.0-32.0 [facility] Work Phone: [phone] Free T4 [Mass/Vol] 1.16 ng/dL 0.76-1.46 [facility] [place] [place] Work Phone: [phone] Globulin (S) [Mass/Vol] 3.7 g/dL 2.2-4.2 [facility] Work Phone: [phone] Magnesium [Mass/Vol] 1.9 mg/dL 1.6-2.[address] [facility] [place] [place] Work Phone: [phone] Urea nitrogen/Creatinine [Mass ratio] 17.8 mg/mg 10-20 [facility] Work Phone: [phone] Laboratory - Hematology and Cell countson 09-19-2021 Erythrocyte distribution width (RBC) [Entitic vol] 40.4 fL 35.1-43.9 [facility] Work Phone: [phone] Erythrocyte distribution width (RBC) [Ratio] 12.2 % 11.6-14.6 [facility] Work Phone: [phone] Immature granulocytes/100 WBC (Bld) 0.300 % 0.0-0.9 [facility] Work Phone: [phone] Comment on above: IG% - Immature Granu locytes (promyelocytes, myelocytes and metamyelocytes) > 1% indicates that a LEFT SHIFT is Present. MCH (RBC) [Entitic mass] 30.1 pg 27.0-32.0 [facility] Work Phone: [phone] Nucleated RBC/100 WBC (Bld) [Ratio] 0 % 0-5 [facility] Work Phone: [phone] MCHC Auto (RBC) [Mass/Vol]on 09-19-2021 MCHC (RBC) [Mass/Vol] 33.5 g/dL 32-36 [facility] Work Phone: No Panel Informationon 09-19 Thyroglobulin Antibody 2.7 IU/mL [facility] Work Phone: Comment on above: Thyroglobulin Antibo dy measured by [facility] [employer] MindsMethodologyPerformed at: [facility] [address] [id number] Director: Leon Dupree PhD, Phone: [phone] Estimated GFR (MDRD) Amer 118 mL/min >60 [facility] Work Phone: Comment on above: GFR Calc Estimated GFR (MDRD) Non-Af Amer 97 mL/min >60 [facility] Work Phone: Comment on above: Non- GFR Calc Free Triiodothyronine (T3) pg/dL 2.5 pg/mL 2.18-3.98 [facility] Work Phone: Thyroid Stimulating Hormone (TSH) 1.16 uIU/mL 0.358-3.74 [facility] Work Phone: Platelets bldon 09-19-2021 Platelets (Bld) [#/Vol] 287 10*3/uL 150-450 [facility] Work Phone: Serum or plasma albumin kassi urement (mass/volume)on 09-19-2021 Albumin [Mass/Vol] 3.5 g/dL 3.2-5.0 [facility] Work Phone: [phone] Serum or plasma albumin/glob ulin mass ratioon 09-19-2021 Albumin/Globulin [Mass ratio] 0.9 {ratio} 0.9-2.4 [facility] Work Phone: [phone] Serum or plasma calcium kassi urement (mass/volume)on 09-19-2021 Calcium [Mass/Vol] 8.6 mg/dL 8.5-10.1 [facility] Work Phone: Serum or plasma cholesterol in HDL measurement (mass/volume)on 09-19-2021 Cholesterol in HDL [Mass/Vol] 52 mg/dL [facility] Work Phone: Comment on above: The drugs N-Acetylcy steine and Metamizole may falsely depress this assay. Reference Range HDL <40 mg/dL Low HDL Cholesterol HDL >or= 60 mg/dL High HDL Cholesterol Serum or plasma cholesterol in VLDL measurement (mass/volume)on 09-19-2021 Cholesterol in VLDL [Mass/Vol] 25 mg/dL 5-40 [facility] Work Phone: Serum or plasma creatinine m easurement (mass/volume)on 09-19-2021 Creatinine [Mass/Vol] 0.67 mg/dL 0.55-1.02 [facility] Work Phone: Comment on above: The validity of the calculated GFR & GFRAA in patients over 70 years has not been determined. Clinical correlation is essential. Serum or plasma low density lipoprotein (LDL) cholesterol measurement (mass/volume)on 09-19-2021 Cholesterol in LDL [Mass/Vol] 157 mg/dL 0-130 [facility] Work Phone: Serum or plasma thyroperoxid ase antibody assay (units/volume)on 09-19-2021 TPO Ab Qn 121 [IU]/mL [facility] Work Phone: Serum or plasma urea nitroge n measurement (mass/volume)on 09-19-2021 Urea nitrogen [Mass/Vol] 12 mg/dL 7-18 [facility] Work Phone: Thin prep Papanicolaou smear with manual screeningon 09-19-2021 Thin prep Papanicolaou smear with manual screening 25 U/L 15-37 [facility] Work Phone: Thin prep Papanicolaou smear with manual screening 5 5-15 [facility] Work Phone: Vital Signs Date Time Vital Sign Value Performing Clinician Facility 05-10-2024 15:10-0500 Body height 164.5 cm Pavan Contreras APRN.[facility] Work Phone: [facility] 05-10-2024 15:10-0500 Body mass index (BMI) [Ratio] 37.04 kg/m2 Pavan Haneyury CERTIFIED OPHTHALMIC MEDICAL TECHNICIAN.CRIMINAL RESEARCH SPECIALIST Work Phone: [facility] 05-10-2024 15:10-0500 Body weight 100.25 kg Pavan Contreras CERTIFIED OPHTHALMIC MEDICAL TECHNICIAN.CRIMINAL RESEARCH SPECIALIST Work Phone: [facility] 05-10-2024 15:10-0500 Diastolic blood pressure 70 mm[Hg] Pavan Haury CERTIFIED OPHTHALMIC MEDICAL TECHNICIAN.CRIMINAL RESEARCH SPECIALIST Work Phone: [facility] 05-10-2024 15:10-0500 Systolic blood pressure 132 mm[Hg] Pavanwandy Haneyury CERTIFIED OPHTHALMIC MEDICAL TECHNICIAN.CRIMINAL RESEARCH SPECIALIST Work Phone: [facility] 12-05-2023 11:41-0400 Body mass index (BMI) [Ratio] 35.45 kg/m2 Jennifer Green MD Work Phone: [facility] 12-05-2023 11:41-0400 Body weight 96.62 kg Jennifer Green MD Work Phone: [facility] 12-05-2023 11:41-0400 Diastolic blood pressure 72 mm[Hg] Jeninfer Green MD Work Phone: [facility] 12-05-2023 11:41-0400 Systolic blood pressure 124 mm[Hg] Jennifer Green MD Work Phone: [facility] 04-07-2023 08:51-0500 Diastolic blood pressure 70 mm[Hg] Zoe Peterson MD Work Phone: [facility] 04-07-2023 08:51-0500 Heart rate 49 /min Zoe Peterson MD Work Phone: [facility] 04-07-2023 08:51-0500 SaO2% (BldA) [Mass fraction] 100 % Zoe Peterson MD Work Phone: [facility] 04-07-2023 08:51-0500 Systolic blood pressure 136 mm[Hg] Zoe Peterson MD Work Phone: [facility] 04-07-2023 08:41-0500 Respiratory rate 16 /min Zoe Peterson MD Work Phone: [facility] 04-07-2023 07:26-0500 Body temperature 97.59 [degF] Zoe Peterson MD Work Phone: [facility] 04-07-2023 07:26-0500 Body weight 98.6 kg Zoe Peterson MD Work Phone: [facility] 02-05-2023 15:05-0400 Body height 165.1 cm Dipika Ithaca PA-C Work Phone: [facility] 02-05-2023 15:05-0400 Body temperature 97.5 [degF] Dipika Ithaca PA-C Work Phone: [facility] 02-05-2023 15:05-0400 Body weight 98.61 kg Dipika Elvi PA-C Work Phone: [facility] 02-05-2023 15:05-0400 Diastolic blood pressure 86 mm[Hg] Dipika Elvi PA-C Work Phone: [facility] 02-05-2023 15:05-0400 Heart rate 65 /min Dipika Elvi PA-C Work Phone: [facility] 02-05-2023 15:05-0400 SaO2% (BldA) [Mass fraction] 100 % Dipika Ithaca PA-C Work Phone: [facility] 02-05-2023 15:05-0400 Systolic blood pressure 118 mm[Hg] Dipika Ithaca PA-C Work Phone: [facility] 06-20-2022 12:56-0500 Diastolic blood pressure 89 mm[Hg] [facility] 06-20-2022 12:56-0500 Systolic blood pressure 147 mm[Hg] [facility] 06-20-2022 11:04-0500 Heart rate 65 /min [facility] 06-20-2022 11:04-0500 Respiratory rate 16 /min [facility] 06-20-2022 11:04-0500 SaO2% (BldA) [Mass fraction] 99 % [facility] 06-20-2022 09:26-0500 Body height 165.1 cm [facility] 06-20-2022 09:26-0500 Body mass index (BMI) [Ratio] 35.7 kg/m2 [facility] 06-20-2022 09:26-0500 Body temperature 97.9 [degF] [facility] 06-20-2022 09:26-0500 Body weight 97.52 kg [facility] 06-18-2022 14:58-0500 Body height 165.1 cm Jennifer Green MD Work Phone: [facility] 06-18-2022 14:58-0500 Body weight 102.97 kg Jennifer Green MD Work Phone: [facility] 06-18-2022 14:58-0500 Diastolic blood pressure 94 mm[Hg] Jennifer Green MD Work Phone: [facility] 06-18-2022 14:58-0500 Systolic blood pressure 146 mm[Hg] Jennifer Green MD Work Phone: [facility] 03-22-2022 14:59-0500 Body height 165.1 cm Jennifer Green MD Work Phone: [facility] 03-22-2022 14:59-0500 Body weight 102.06 kg Jennifer Green MD Work Phone: [facility] 03-22-2022 14:59-0500 Diastolic blood pressure 94 mm[Hg] Jennifer Green MD Work Phone: [facility] 03-22-2022 14:59-0500 Systolic blood pressure 146 mm[Hg] Jennifer Green MD Work Phone: [facility] Encounters Encounter Date Encounter Type Care Provider Facility Start: 10-14-2024 End: 10-14-2024 E-mail encounter from caregiver Pavan Contreras APRN.CRIMINAL RESEARCH SPECIALIST Work Phone: OB/Gynecology Start: 10-14-2024 End: 10-14-2024 ambulatory Pavan Contreras APRN.CRIMINAL RESEARCH SPECIALIST Work Phone: OB/Gynecology Comment on above: Side Effect Genitourinary syndro me of menopause (Primary Dx); Vaginal dryness; Urinary frequency Start: 10-14-2024 End: 10-14-2024 Telemedicine consultation with patient Pavan Contreras APRN.CRIMINAL RESEARCH SPECIALIST Work Phone: OB/Gynecology Start: 07-30-2024 End: 07-30-2024 ambulatory Pavan Contreras APRN.CRIMINAL RESEARCH SPECIALIST Work Phone: OB/Gynecology Comment on above: Estrogen Start: 07-13-2024 End: 07-13-[address] Donnell Barroso MD Work Phone: [facility] Work Phone: Start: 07-13-2024 End: 07-13-[address] Donnell Barroso MD -Laboratory Work Phone: Start: 07-13-2024 End: 07-13-2024 ambulatory [facility] Facility:[facility] Start: 07-03-2024 End: 07-03-[address] Donnell Barroso MD Work Phone: [facility] Work Phone: Start: 07-03-2024 End: 07-03-[address] Donnell Barroso MD -Laboratory Work Phone: Start: 07-03-2024 End: 07-03-2024 ambulatory Donnell Barroso Facility:[facility] Start: 06-10-2024 End: 06-10-2024 Patient encounter procedure Mikki PAREKH -Laboratory, Specimen Work Phone: Start: 06-10-2024 End: 06-10-2024 ambulatory Donnell An[place]onda Facility:[facility] Start: 05-10-2024 End: 05-10-2024 Patient encounter procedure Pavan Contreras APRN.CRIMINAL RESEARCH SPECIALIST Work Phone: OB/Gynecology Comment on above: Encounter for gyneco logical examination (general) (routine) without abnormal findings (Primary Dx); Encounter for screening for human papillomavirus (HPV); Pap smear for cervical cancer screening; Encounter for screening mammogram for breast cancer; Urinary frequency; Family history of osteopenia; Encounter for screening for osteoporosis; Asymptomatic postmenopausal status; Malaise and fatigue; Fibrocystic disease of right breast; Menopausal symptoms; Nocturia Start: 05-10-2024 End: 05-10-2024 Patient encounter status Pavan Contreras APRN.CNP Work Phone: [facility] Start: 05-10-2024 End: 05-10-2024 ambulatory PAVAN CONTRERAS Facility:[facility] Start: 05-10-2024 Encounter for gynecological examination (general) (routine) without abnormal findings PAVAN CONTRERAS [facility] Start: 05-10-2024 End: 05-10-2024 Subsequent hospital visit by physician Screen Mammo [facility] Mammogram Comment on above: Encounter for screen ing mammogram for malignant neoplasm of breast [Z12.31] Start: 12-05-2023 End: 12-05-2023 ambulatory JENNIFER GREEN Facility:[facility] Start: 12-05-2023 End: 12-05-2023 Patient encounter procedure Jennifer Green MD Work Phone: OB/Gynecology Comment on above: Urinary urgency (Yulisa adonay Dx); Recurrent UTI; Family history of osteoporosis; Menopausal symptoms Start: 10-02-2023 End: 10-02-2023 ambulatory [facility] Facility:[facility] Start: 09-23-2023 End: 09-23-2023 ambulatory [facility] Facility:[facility] Start: 05-12-2023 End: 05-12-2023 ambulatory [facility] Work Phone: Start: 05-12-2023 End: 05-12-2023 Patient encounter procedure [facility] [place] [facility] Start: 04-15-2023 End: 02-11-2024 Telephone encounter Zoe Peterson MD Work Phone: Radiology Comment on above: Results Start: 04-08-2023 Telephone encounter Zoe Paredes MD Work Phone: General Surgery Start: 04-07-2023 End: 04-07-2023 Subsequent hospital visit by physician Zoe Peterson MD Work Phone: Ambulatory Surgery Comment on above: History of colon edin yps [Z86.010] Start: 02-05-2023 End: 02-05-2023 Patient encounter procedure Dipika Graf F[place] Work Phone: General Surgery Comment on above: Encounter for screen ing for malignant neoplasm of colon (Primary Dx); Family history of colonic polyps Start: 01-02-2023 End: 01-02-2023 ambulatory [facility] Work Phone: Start: 01-02-2023 End: 01-02-2023 Patient encounter procedure [facility] Start: 09-09-2022 End: 09-09-2022 ambulatory [facility] Work Phone: Start: 09-09-2022 End: 09-09-2022 Patient encounter procedure [facility] Start: 07-01-2022 End: 07-01-2022 ambulatory [facility] Work Phone: Start: 07-01-2022 End: 07-01-2022 Patient encounter procedure [facility]-Laboratory, Specimen Start: 06-25-2022 End: 06-25-2022 Patient encounter procedure [facility] Start: 06-21-2022 Telephone encounter Jennifer Green MD Work Phone: OB/Gynecology Comment on above: Patient Update Start: 06-20-2022 End: 06-20-2022 Emergency department patient visit [facility]-Emergency Department Start: 06-18-2022 End: 06-18-2022 Patient encounter procedure Jennifer Green MD Work Phone: OB/Gynecology Comment on above: Class 2 severe obesi ty with serious comorbidity and body mass index (BMI) of 37.0 to 37.9 in adult, unspecified obesity type (HCC) (Primary Dx); Encounter for screening for diabetes mellitus; Screening, anemia, deficiency, iron; Encounter for vitamin deficiency screening; Screening cholesterol level; Hypothyroidism, unspecified type; BMI 37.0-37.9, adult Start: 03-25-2022 Documentation procedure Mammog rory Coordinator [facility] Start: 03-25-2022 Letter encounter Mammography Coordinator [facility] Department Start: 03-22-2022 End: 03-22-2022 Patient encounter procedure Jennifer Green MD Work Phone: OB/Gynecology Comment on above: Encounter for gyneco logical examination (general) (routine) without abnormal findings (Primary Dx); Encounter for screening mammogram for malignant neoplasm of breast Start: 03-22-2022 End: 03-22-2022 Patient encounter status Jennifer Green MD Work Phone: OB/Gynecology Start: 09-19-2021 End: 09-19-2021 Patient encounter procedure [facility]-Laboratory Procedures Date Procedure Procedure Detail Performing Clinician Start: 12-05-2023 Urnls dip stick/tabl et rgnt auto w/o microscopy Jennifer Green MD Work Phone: Start: 04-07-2023 Colonoscopy flx dx w/collj spec when pfrmd Dipika Boles PA-C Work Phone: Start: 04-07-2023 Colonoscopy Zoe Peterson MD Work Phone: Start: 09-09-2022 Plain X-ray of toe Start: 06-20-2022 Plain chest X-ray Start: 06-18-2022 Lipid 1996 panel - S vicki or Plasma Dipika Boles PA-C Work Phone: Start: 03-22-2022 Mammography Mammograph y Coordinator Start: 03-19-2021 Mammography Jennifer Green MD Work Phone: Start: 04-20-2018 Colonoscopy Jennifer Green MD Work Phone: Plan of Treatment Date Care Activity Detail Author Start: 10-09-2029 Urine microalbumin profile [facility] Start: 05-10-2029 Screening for malign ant neoplasm of cervix Cervical Cancer Screening [facility] Start: 04-07-2028 Colonoscopy Colonoscopy [facility] Start: 04-07-2028 Colorectal Cancer Screening Colorectal Cancer Screening [facility] Start: 04-07-2028 Screening for malign ant neoplasm of colon [facility] Start: 06-18-2027 Lipid 1996 panel - S vicki or Plasma Lipid Screening [facility] Start: 06-18-2027 Lipid panel Lipid Screening [facility] Start: 06-18-2027 LIPID SCREEN LIPID SCREEN [facility] Start: 06-18-2025 [facility]ABET[facility] Start: 06-18-2025 Diabetes Screening Diabetes Screenin g [facility] Start: 05-10-2025 Screening for malign ant neoplasm of breast Mammogram Screening [facility] Start: 07-13-2024 In-vitro immunologic test [facility] Start: 07-13-2024 Measurement of Borre rosa elena burgdorferi antibody [facility] Start: 05-10-2024 End: 08-09-2024 25-hydroxyvitamin D3 [Mass/volume] in Serum or Plasma VITAMIN D 25 HYDROXY Lab Routine Malaise and fatigue Expected: 05/10/2024, Expires: 08/09/2024 [facility] Comment on above: Expected: 05/10/2024 , Expires: 08/09/2024 Start: 05-10-2024 End: 08-09-2024 Comprehensive metabolic 2000 panel - Serum or Plasma COMPREHENSIVE METABOLIC PANEL Lab Routine Malaise and fatigue Expected: 05/10/2024, Expires: 08/09/2024 [facility] Comment on above: Expected: 05/10/2024 , Expires: 08/09/2024 Start: 05-10-2024 End: 08-09-2024 Hemoglobin A1c in Blood HEMOGLOBIN A1C Lab Routine Malaise and fatigue Expected: 05/10/2024, Expires: 08/09/2024 [facility] Comment on above: Expected: 05/10/2024 , Expires: 08/09/2024 Start: 05-10-2024 End: 08-09-2024 Lipid 1996 panel - Serum or Plasma LIPID PANEL BASIC Lab Routine Malaise and fatigue Expected: 05/10/2024, Expires: 08/09/2024 [facility] Comment on above: Expected: 05/10/2024 , Expires: 08/09/2024 Start: 05-10-2024 End: 08-09-2024 Thyrotropin [Units/volume] in Serum or Plasma THYROID STIMULATING HORMONE Lab Routine Malaise and fatigue Expected: 05/10/2024, Expires: 08/09/2024 [facility] Comment on above: Expected: 05/10/2024 , Expires: 08/09/2024 Start: 05-03-2024 End: 05-03-2024 Patient encounter procedure 05/03/2024 9:30 AM EST Appointment Mammogram [address] [place] [address] Encounter for screening mammogram for malignant neoplasm of breast [Z12.31] Mammogram Comment on above: Encounter for screen ing mammogram for malignant neoplasm of breast [Z12.31] Start: 05-03-2024 End: 05-03-2024 Patient encounter procedure 05/03/2024 8:20 AM EST Office Visit OB/Gynecology [address] [place] [address] Jennifer Castaneda MD [address] [place] [address] Annual Exam OB/Gynecology Comment on above: Annual Exam Start: 04-17-2024 Screening for malign ant neoplasm of breast Mammogram Screening [facility] Start: 02-25-2024 HPV TESTING HPV TESTING [facility] Start: 02-25-2024 PAP TESTING PAP TESTING [facility] Start: 02-25-2024 Screening for malign ant neoplasm of cervix Cervical Cancer Screening [facility] Start: 01-04-2024 Covid-19 Vaccine () Covid-19 Vaccine () [facility] Start: 01-04-2024 Influenza vaccination Influenza Vacc ine (#1) [facility] Start: 07-15-2023 Shingrix Vaccine (2 of 2) Mayes grix Vaccine (2 of 2) [facility] Start: 04-20-2023 Colonoscopy COLONOSCOPY [facility] Start: 04-20-2023 COLORECTAL CANCER SCREENING COLORECTAL CANCER SCREENING [facility] Start: 03-22-2023 Mammography [facility] Start: 01-03-2023 Covid-19 Vaccine () Covid-19 Vaccine () [facility] Start: 01-03-2023 Influenza vaccination Influenza Vacc ine (#1) [facility] Start: 06-20-2022 [facility] Start: 06-18-2022 End: 08-18-2022 25-hydroxyvitamin D3 [Mass/volume] in Serum or Plasma [facility] Work Phone: Comment on above: Expected: 06/18/2022 , Expires: 08/18/2022 Start: 06-18-2022 End: 08-18-2022 Hemoglobin A1c in Blood [facility] Work Phone: Comment on above: Expected: 06/18/2022 , Expires: 08/18/2022 Start: 06-18-2022 End: 08-18-2022 Insulin [Units/volume] in Serum or Plasma [facility] Work Phone: Comment on above: Expected: 06/18/2022 , Expires: 08/18/2022 Start: 06-18-2022 End: 08-18-2022 LIPID PANEL, NONFASTING [facility] Work Phone: Comment on above: Expected: 06/18/2022 , Expires: 08/18/2022 Start: 06-18-2022 End: 08-18-2022 Thyrotropin [Units/volume] in Serum or Plasma [facility] Work Phone: Comment on above: Expected: 06/18/2022 , Expires: 08/18/2022 Start: 05-05-2022 DEPRESSION ASSESSMENT DEPRESSION ASS ESSMENT [facility] Start: 03-19-2022 Mammography MAMMOGRAM [facility] Start: 05-05-2021 [facility] Start: 09-14-2020 COVID-19 VACCINE (3 - Booster for Pfizer series) COVID-19 VACCINE (3 - Booster for Pfizer series) [facility] Start: 2018 Pneumococcal Vaccine : 50+ (1 of 1 - PCV) Pneumococcal Vaccine: 50+ (1 of 1 - PCV) [facility] Start: 2018 SHINGRIX VACCINE (1 of 2) MAYES GRIX VACCINE (1 of 2) [facility] Start: 04-07-2016 DIABETES SCREEN DIABETES SCREEN [facility] Start: 2013 COLOGUARD (FIT-DNA) COLOGUARD (FIT-D NA) [facility] Start: [address] COLONOGRAPHY [facility] Start: 2013 FECAL OCCULT BLOOD FECAL OCCULT BLOO D [facility] Start: 2013 LIPID SCREEN LIPID SCREEN [facility] Start: 2013 Screening for malign ant neoplasm of colon [facility] Start: 2013 SIGMOIDOSCOPY SIGMOIDOSCOPY [facility] Start: 1987 Hepatitis B Vaccine (1 of 3 - 19+ 3-dose series) Hepatitis B Vaccine (1 of 3 - 19+ 3-dose series) [facility] Start: 1986 ANNUAL PCP TEAM BLEACH MAKER CRESCENCIO DISEASE VISIT ANNUAL PCP TEAM CHRONIC DISEASE VISIT [facility] Start: 1986 Anxiety Screening Anxiety Screening [facility] Start: 1986 Depression Screening Depression Scre ening [facility] Start: 1986 HEPATITIS C SCREENING HEPATITIS C [facility] Start: 1986 Hepatitis C screening Hepatitis C [facility] Start: 1986 HIV SCREENING HIV SCREENING [facility] Start: 1986 HIV screening HIV Screening [facility] Start: 1968 HEPATITIS B (1 of 3 - 3-dose series) HEPATITIS B (1 of 3 - 3-dose series) [facility] Start: 1968 Hepatitis B Vaccine (1 of 3 - 3-dose series) Hepatitis B Vaccine (1 of 3 - 3-dose series) [facility] Albumin/Globulin [Ma ss Ratio] in Serum or Plasma by Electrophoresis [facility] Bacteria identified in Urine by Culture URINE CULTURE Microbiology Routine Urinary frequency 05/10/2024 3:51 PM EST [facility] End: 06-09-2025 BD DXA TRABECULAR BONE SCORE (TBS) BD DXA TRABECULAR BONE SCORE (TBS) Radiology Routine Encounter for screening for osteoporosis Asymptomatic postmenopausal status 1 Occurrences starting 05/10/2024 until 06/09/2025 [facility] Comment on above: 1 Occurrences starti ng 05/10/2024 until 06/09/2025 End: 06-09-2025 DBT Breast - bilateral screening WOODY SCREENING W JORDAN Radiology Routine Encounter for screening mammogram for breast cancer 1 Occurrences starting 05/10/2024 until 06/09/2025 [facility] Work Phone: Comment on above: 1 Occurrences starti ng 05/10/2024 until 06/09/2025 DBT Breast - bilater al screening WOODY SCREENING W JORDAN Radiology Routine Encounter for screening mammogram for malignant neoplasm of breast 05/10/2024 3:08 PM EST [facility] Work Phone: End: 06-09-2025 DXA Skeletal system.axial Views for bone density DXA-AXIAL SKELETON Radiology Routine Encounter for screening for osteoporosis Asymptomatic postmenopausal status 1 Occurrences starting 05/10/2024 until 06/09/2025 [facility] Comment on above: 1 Occurrences starti ng 05/10/2024 until 06/09/2025 Electrophoresis: albumin [facility] Electrophoresis: [id number] [facility] Electrophoresis: [id number] [facility] Electrophoresis: garett ma globulin [facility] Globulin measurement [facility] End: 04-21-2023 WOODY SCREENING W JORDAN WOODY SCREENING [facility] Radiology Routine Encounter for screening mammogram for malignant neoplasm of breast 1 Occurrences starting 03/22/2022 until 04/21/2023 [facility] Work Phone: Comment on above: 1 Occurrences starti ng 03/22/2022 until 04/21/2023 Mycobacterium tuberculosis tuberculin stimulated gamma interferon [Presence] in Blood [facility] PAP TEST PAP TEST Lab Sher rodrgiuez Encounter for gynecological examination (general) (routine) without abnormal findings Encounter for screening for human papillomavirus (HPV) Pap smear for cervical cancer screening 05/10/2024 3:51 PM EST [facility] Patient Education ED Chest Pain, Noncardiac ED Palpitations [facility] Work Phone: Patient referral [facility] Work Phone: Protein electrophore sis panel - Serum or Plasma [facility] Serum protein electrophoresis [facility] SURGICAL PATHOLOGY [facility] Work Phone: Comment on above: Release Upon Sarah fish for 1 Occurrences starting 04/07/2023, 1 completed Total globulins measurement [facility] Immunizations Immunization Date Immunization Notes Care Provider Ely roldan 02-21-2023 influenza virus vacc ine, unspecified formulation Jennifer Green MD Work Phone: [facility] 03-01-2022 influenza virus vacc ine, unspecified formulation Dipika Boles PA-C Work Phone: [facility] 10-10-2019 tetanus toxoid, redu kim diphtheria toxoid, and acellular pertussis vaccine, adsorbed Jennifer Green MD Work Phone: [facility] 02-03-2019 Influenza, injectabl e, Madin Karen Canine Kidney, preservative free, quadrivalent Jennifer Green MD Work Phone: [facility] 02-02-2018 Influenza, injectabl e, Madin Ina Canine Kidney, preservative free, quadrivalent Jennifer Green MD Work Phone: [facility] 02-14-2016 influenza, seasonal, injectable Jennifer Green MD Work Phone: [facility] Payers Date Payer Category Payer Self-pay [id number] 2020 Private Health Insurance MMO [employer] PPO Member Subscriber Plan / Payer (Effective 2020-Present) Name: Lillian Romero Relation to Subscriber: Self Name: Lillian Romero Payer ID: Not on file Type: PPO Address: [place] [id number] 2020 Unknown [id number] 2020 Unknown [id number] 2013 Private Health Insurance [id number] Self-pay SELF PAY INSURANCE [id number] Unknown [id number] Unknown [id number] Unknown [id number] Unknown [id number] Social History Date Type Detail Facility Start: 11-07-2019 End: 06-20-2022 Tobacco smoking status HIIS Unknown if ever smoked [facility] Start: 11-07-2019 With Family [facility] Start: 1970 Sex Assigned At Female W [facility] Start: 03-22-2022 End: 06-20-2022 Tobacco smoking status NHIS Never smoked tobacco [facility] Start: 03-22-2022 Tobacco use and exposure Smokeless tobacco non-user [facility] Start: 03-22-2022 End: 10-14-2024 Alcohol intake Current drinker of alcohol (finding) [facility] Start: 01-17-2017 Alcohol Comment Occasionally [facility] Start: 1970 Sex Assigned At Not on file [facility] Start: 02-05-2023 End: 10-14-2024 History of Social function [facility] Start: 02-05-2023 End: 10-14-2024 Tobacco use panel [facility] Work Phone: National Score (1-100), lower number is lower risk 62 [facility] Start: 07-15-2024 End: 07-21-2024 Sex Female (finding) [facility] Functional Status Date Assessment Result Facility 10-21-2014 Are you deaf, or do you have serious difficulty hearing No 10/21/2014 2:50 PM Karo Vogt, SUKH No [facility] 10-21-2014 Are you blind, or do you have serious difficulty seeing, even when wearing glasses No 10/21/2014 2:50 PM Karo Vogt, SUKH No [facility] 10-21-2014 Do you have serious difficulty walking or climbing stairs No 10/21/2014 2:50 PM Karo Vogt, SUKH No [facility] 10-21-2014 Do you have difficul ty dressing or bathing No 10/21/2014 2:50 PM Karo Vogt, SUKH No [facility] 10-21-2014 Because of a physica l, mental, or emotional condition, do you have difficulty doing errands alone such as visiting a physician's office or shopping No 10/21/2014 2:50 PM Karo Vogt, SUKH No [facility] Mental Status Date Assessment Result Facility 06-20-2022 Cognitive function Awake;Alert;A ppropriat e [facility] Work Phone: 10-21-2014 Because of a physica l, mental, or emotional condition, do you have serious difficulty concentrating, remembering, or making decisions No 10/21/2014 2:50 PM Karo Vogt, SUKH No [facility] Clinical Notes 10-20-2012 to 10-14-2024 Patient InstructionsPavan Contreras APRN.CNP - 10/14/2024 8:41 AM EDTTelephone Encounter - Marva Ordaz LPN - 07/30/2024 8:54 AM EDTPatient InstructionsPatient Instructions Note Date & Type Note Facility 10-14-2024 Instructions Pavan Contreras APRN.CNP - 10/14/2024 8:52 AM EDT Genitourinary syndrome of menopause, also known as atrophy, is caused by a decreased amount of estrogen, which can occur after menopause. Decreased estrogen results in the following: reduced blood flow to the vaginal tissues, thin/dry vaginal lining, decreased vaginal wall elasticity, and vaginal narrowing. Vaginal hall are flexible with a thick lining and have a healthy blood flow to the vaginal tissue in premenopausal patients. Genitourinary syndrome of menopause can cause pain with intercourse, dryness, irritation, itching, and even recurrent UTIs in some patients. This is a common condition in perimenopausal and menopausal women. documented in this encounter [facility] 10-14-2024 History of Present illness Narrative OGI VIRTUAL VISIT Virtual limitations reviewed with patient, as well as possible need to travel to have diagnostic services. Patient voiced understanding. Patient seen on [employer] Video Visit platform. Location of patient: [place] I have communicated my name and active licensure. The patient's identity and physical location were verified at the time of this visit. Either the patient or their legal customer solutions representative has been informed of the risks and benefits of -- and alternatives to -- treatment through a remote evaluation and consents to proceed with the evaluation remotely. CC: Vaginal estrogen cream HPI: Bibi has been struggling with urinary frequency and recurrent UTIs. Also reports vaginal dryness. Would like to trial vaginal estrogen cream to help with this. ROS : + urinary frequency EMBLEM DRAWER IN: + vaginal dryness PE General: well appearing 54 year old female in no apparent distress Neuro: Alert and Oriented x3 Psych: Mood normal, affect normal, speech non pressured A/P 1. 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 Vaginal dryness - ICD9: 625.8, ICD10: N89.8 3. Urinary frequency - ICD9: 788.41, ICD10: R35.0 - Reviewed how low estrogen levels after menopause can cause these types of symptoms - Would like to trial vaginal estrogen cream - To use nightly for 2 weeks and then twice per week after that. - Reviewed local absorption, minimal systemic absorption. Denies history of blood clots or breast cancer. Reviewed will take 4-6 weeks to reach effect. - RTO in 2-3 months to assess or sooner as needed Denies any further breast pain. Pavan Contreras APRN.CHELLE I spent a total of 15 minutes on the date of the service which included preparing to see the patient, [id number] patient care, completing clinical documentation, obtaining and/or reviewing separately obtained history, counseling and educating the patient/family/caregiver, and ordering medications, tests, or procedures. documented in this encounter [facility] 07-30-2024 Telephone encounter Note Does patient need an appointment to discuss?last seen 05/10/2024 [facility] 07-30-2024 Miscellaneous Notes Does patient need an appointment to discuss?last seen 05/10/2024 documented in this encounter [facility] 05-10-2024 Instructions Pavan Contreras APRN.CNP - 05/10/2024 3:20 PM EST Calcium and Vitamin D Supplementation (from the National Institutes of Health Office of Dietary Supplements 2011) Calcium is required by the body for blood vessel, muscle, hormone and nerve functioning. Most of the body's calcium is stored in the bones and teeth where it supports structure and function. Bone is continuously broken down and reformed. When bone breakdown exceeds formation, especially in postmenopausal women, bone loss can increase the risk of osteoporosis and fractures. In addition to low calcium intake, women who smoke, have a family history of osteoporosis, are thin, or , or who take certain medications such as cancer chemotherapy, seizure mediations and steroids are at increased risk of osteoporosis. The calcium requirements in women change with age. The National Institutes of Health (NIH) recommends: 1000mg elemental calcium for premenopausal women age 19-50 1200mg elemental calcium for postmenopausal women and all women over 50 Milk, yogurt, and cheese are rich natural sources of calcium and are the major food contributors in the [place]. For example, 8oz of milk (whole, lowfat or skim) contains about 300mg calcium, 8oz of yogurt contains 415mg. Nondairy sources include salmon and sardines and vegetables, such as Romanian cabbage, kale, and broccoli. Foods fortified with calcium include many fruit juices, tofu and cereals. For more food calcium content information, visit http://ods.od.nih.gov/factsheets/calci um. Calcium supplements come in several different forms. Remember that the recommendations are for millgrams (mg) of elemental calcium which may be less than the total weight of the supplement. The amount of elemental calcium is required to be printed on the label. Calcium carbonate is the least expensive form. It must be taken on a full stomach to be properly absorbed. Some patients may experience gas or constipation. Calcium phosphate and calcium citrate may be taken either with or without food and tend to have less side effects but are generally more expensive. Because of its ability to neutralize stomach acid, calcium carbonate is found in some [id number] antacid products, such as Tums and Rolaids . Depending on its strength, each chewable pill or softchew provides 200 to 400 mg of elemental calcium. The percentage of calcium absorbed depends on the total amount of elemental calcium consumed at one time. Absorption is highest in doses <500mg. So a woman who takes 1,000mg/day of calcium from supplements should split the dose and take 500mg at two separate times during the day. Too much calcium can cause kidney stones, constipation, difficulty absorbing other nutrients and calcium buildup in blood vessels. Women under 50 should not exceed 2500mg/day (2000mg/day for women over 50) of calcium from food and supplements. Excessive alcohol and caffeine intake can inhibit absorption of calcium. Calcium can reduce the absorption of some medications if taken at the same time of day (bisphosphonates, thyroid medication, Phenytoin and other seizure medications, some antibiotics and iron supplements). Vitamin D promotes calcium absorption in the gut and maintains adequate blood levels of calcium and phosphate for normal bone growth and bone remodeling. Vitamin D also helps regulate cell growth as well as nerve, muscle and immune system function. Vitamin D is produced in the skin as a result of ultraviolet sunlight rays and must be altered in the liver and kidney to become its active form. Recommended intake according to the National Institutes of Health is 600 International Units (IU) for girls and women ages 1-70 and 800 IU for women over 70. Very few foods in nature contain vitamin D. The flesh of fatty fish (such as salmon, tuna, and mackerel) and fish liver oils are among the best sources. Small amounts of vitamin D are found in beef liver, cheese, mushrooms and egg yolks. Most people meet at least some of their vitamin D needs through exposure to sunlight. Season, time of day, length of day, cloud cover, smog, skin melanin content, and sunscreen are among the factors that affect UV radiation exposure and vitamin D synthesis. Despite the importance of the sun for vitamin D synthesis, it is prudent to limit exposure of skin to sunlight and avoid tanning beds. UV radiation is a carcinogen responsible for most of the estimated 1.5 million skin cancers that occur annually in the [place]. Lifetime cumulative UV damage to skin is also responsible for some age-associated dryness and other cosmetic changes. In supplements and fortified foods, vitamin D is available in two forms, D2 (ergocalciferol) and D3 (cholecalciferol). The two are equivalent at normal supplement doses. For women who require high supplement doses because of vitamin D deficiency, D3 may work better to raise blood levels. Some medications can prevent proper absorption of Vitamin D. These include laxatives, corticosteroids like prednisone, the seizure drugs phenobarbital and phenytoin, the weight-loss drug orlistat ( Xenical and AlliTM) and the cholesterol-lowering drug cholestyramine (Questran , LoCholest , and Prevalite ). Talk to your doctor about adjusting your recommended daily vitamin D dosage if you take these medications. You should not exceed 4000 mg of vitamin D supplementation daily unless specifically prescribed by your doctor. BONE MINERAL DENSITY PATIENT INSTRUCTIONS === Bone mineral density testing measures the amount of calcium in certain parts of your bones. This information determines how strong your bones are. The test is used to detect osteoporosis, a disease in which the bone's mineral content and density are low, increasing a person's risk of fractures. The lumbar spine (lower back) and the hip are the skeletal sites usually examined. For the test, remember that: 1. You cannot take this test if you are . 2. Eat a normal diet on the day of the test. 3. Take your medications as you normally would. 4. DO NOT take calcium supplements (such as Tums) for 24 hours before the test. 5. On the day of the test, leave valuables (jewelry or credit cards) at home. 6. The test should be performed prior to oral, rectal or IV contrast studies, or at least 7 days after any of these studies. For the test, you may be asked to wear a hospital gown. You will lie on your back, on a padded table, in a comfortable position. Generally, you can resume your usual activities immediately. BONE MINERAL DENSITY PATIENT INSTRUCTIONS === Bone mineral density testing measures the amount of calcium in certain parts of your bones. This information determines how strong your bones are. The test is used to detect osteoporosis, a disease in which the bone's mineral content and density are low, increasing a person's risk of fractures. The lumbar spine (lower back) and the hip are the skeletal sites usually examined. For the test, remember that: 1. You cannot take this test if you are . 2. Eat a normal diet on the day of the test. 3. Take your medications as you normally would. 4. DO NOT take calcium supplements (such as Tums) for 24 hours before the test. 5. On the day of the test, leave valuables (jewelry or credit cards) at home. 6. The test should be performed prior to oral, rectal or IV contrast studies, or at least 7 days after any of these studies. For the test, you may be asked to wear a hospital gown. You will lie on your back, on a padded table, in a comfortable position. Generally, you can resume your usual activities immediately. documented in this encounter [facility] 05-10-2024 Note HNO ID: [id number] Author: PAVAN CONTRERAS APRN.CRIMINAL RESEARCH SPECIALIST Service: ? Author Type: Nurse Practitioner Type: Progress Notes Filed: 05/10/2024 16:07 Note Text: Data Abstractor offered: Patient declines. Bibi is a 53 year old who presents for an annual gynecologic exam without complaints. She does have hot flashes, some night sweats, frequent urination and nocturia. She is interested in HRT She also reports intermittent right breast pain for the past couple of months. Postmenopausal: Yes, hx of ablation HRT use: No. Still get period: No LMP: unknown (2014) HPV vaccine: No HPV: 02/24/2019 negative Last pap smear: 02/24/2019 normal History of abnormal pap: No, all prior PAP smears have been normal Last mammogram: 2023 normal History of abnormal mammogram: Yes - breast biopsy 2015 Patient concerns for STD exposure: No. OB History T3 L3 SAB3 IAB0 Ectopic0 Multiple0 Live Births0 [employer] History LMP: 10/03/2014 (Exact Date), Ablation Age at Menarche: 10 Age at First : Age at Menopause: [employer] History Comments: Sexual Activity: Yes; Male Contraception: [...] 04/20/2018 repeat 5 years COLONOSCOPY SCREENING 04/07/2023 tubular adenoma of right colon, next colonoscopy due in 5 years ENDOMETRIAL ABLTJ THERMAL W/O HYSTEROSCOPIC GUID 04/13/2013 ESOPHAGOGASTRODUODENOSCOPY TRANSORAL DIAGNOSTIC 11/14/2003 EGD LAPS ABD PRTMANDOMENTUM DX W/WO SPEC BR/WA SPX Laparoscopy PAST SURGICAL HISTORY OF Left 2010 Hallux limitus TONSILLECTOMY PRIMARY/SECONDARY Tonsillectomy FAMILY HISTORY Problem Relation Age of Onset Hypertension Mother ULCERS/hypercholestremia other (epilipsy) Mother Hypertension Father HYPERCHOLESTREMIA Melanoma Father ear other (HYPOTHYRODISM) Sister Arthritis Sister Neck and Back Surgery other (HYPOTHYROIDISM) Sister Heart Paternal Grandmother Heart Paternal Grandfather LA SOCIAL HISTORY Social History Tobacco Use Smoking status: Never Smokeless tobacco: Never Vaping Use Vaping status: Never Used Substance Use Topics Alcohol use: Yes Comment: Occasionally Drug use: No REVIEW OF SYSTEMS Abdomen: No abdominal pain, nausea, vomiting, diarrhea, or constipation. No bloating, early satiety, indigestion, or increased flatulence. Bladder: No dysuria, gross hematuria, urinary frequency, urinary urgency, or incontinence Breast: No breast lumps, nipple d/c, overlying skin changes, redness or skin retraction + pain in right breast/axillary Allergies and current medication updated:Yes SENSITIVE EXAM: The sensitive examination was discussed with the Patient or Patient's Authorized Utility Specialist. As applicable, any other physician, advance practice provider, medical student, or other health professional student that will be observing or involved in the sensitive examination for educational or training purposes was discussed with the Patient or Authorized Utility Specialist. The Patient or Authorized Utility Specialist has agreed to proceed with the sensitive examination. (Sensitive examination includes inspection and/or palpation of the breasts, pelvis, prostate and anorectal regions). EXAM: BP 132/70 Ht 5' 4.768 (1.65m) Wt 221 lb (100.2kg) LMP 10/03/2014 BMI 37.05 kg/(m2). GENERAL: pleasant, female in no apparent distress HEENT: Normocephalic, atraumatic, mucus membranes moist, and no lesions NECK: Supple, full range of motion, no adenopathy, and thyroid normal DERMATOLOGY: Normal, without lesions, non-icteric, and non-hirsute BREAST: soft, non-tender, symmetric, no dominant mass, normal nipple-areolar complex, no lymphadenopathy, and no nipple discharge + fibrocystic to right breast CHEST: Normal inspiratory effort ABDOMEN: soft, non-tender, and no masses PELVIC: external genitalia normal, normal Bartholin's glands, urethra, Elias-Fela Solis's glands, no vulvar lesions, no cervical lesions, good vaginal support, physiologic discharge present, normal appearing perineal body and perianal region BIMANUA (more content not included)... [facility] 05-10-2024 History of Present illness Narrative Data Abstractor offered: Patient declines. Bibi is a 53 year old who presents for an annual gynecologic exam without complaints. She does have hot flashes, some night sweats, frequent urination and nocturia. She is interested in HRT She also reports intermittent right breast pain for the past couple of months. Postmenopausal: Yes, hx of ablation HRT use: No. Still get period: No LMP: unknown (2014) HPV vaccine: No HPV: 02/24/2019 negative Last pap smear: 02/24/2019 normal History of abnormal pap: No, all prior PAP smears have been normal Last mammogram: 2023 normal History of abnormal mammogram: Yes - breast biopsy 2015 Patient concerns for STD exposure: No. OB History T3 L3 SAB3 IAB0 Ectopic0 Multiple0 Live Births0 [employer] History LMP: 10/03/2014 (Exact Date), Ablation Age at Menarche: 10 Age at First : Age at Menopause: [employer] History Comments: Sexual Activity: Yes; Male Contraception: [...] 04/20/2018 repeat 5 years COLONOSCOPY SCREENING 04/07/2023 tubular adenoma of right colon, next colonoscopy due in 5 years ENDOMETRIAL ABLTJ THERMAL W/O HYSTEROSCOPIC GUID 04/13/2013 ESOPHAGOGASTRODUODENOSCOPY TRANSORAL DIAGNOSTIC 11/14/2003 EGD LAPS ABD PRTM&OMENTUM DX W/WO SPEC BR/WA SPX Laparoscopy PAST SURGICAL HISTORY OF Left 2011 Hallux limitus TONSILLECTOMY PRIMARY/SECONDARY <AGE 10 Tonsillectomy FAMILY HISTORY Problem Relation Age of Onset Hypertension Mother ULCERS/hypercholestremia other (epilipsy) Mother Hypertension Father HYPERCHOLESTREMIA Melanoma Father ear other (HYPOTHYRODISM) Sister Arthritis Sister Neck and Back Surgery other (HYPOTHYROIDISM) Sister Heart Paternal Grandmother Heart Paternal Grandfather LA SOCIAL HISTORY Social History Tobacco Use Smoking status: Never Smokeless tobacco: Never Vaping Use Vaping status: Never Used Substance Use Topics Alcohol use: Yes Comment: Occasionally Drug use: No REVIEW OF SYSTEMS Abdomen: No abdominal pain, nausea, vomiting, diarrhea, or constipation. No bloating, early satiety, indigestion, or increased flatulence. Bladder: No dysuria, gross hematuria, urinary frequency, urinary urgency, or incontinence Breast: No breast lumps, nipple d/c, overlying skin changes, redness or skin retraction + pain in right breast/axillary Allergies and current medication updated:Yes SENSITIVE EXAM: The sensitive examination was discussed with the Patient or Patient's Authorized Utility Specialist. As applicable, any other physician, advance practice provider, medical student, or other health professional student that will be observing or involved in the sensitive examination for educational or training purposes was discussed with the Patient or Authorized Utility Specialist. The Patient or Authorized Utility Specialist has agreed to proceed with the sensitive examination. (Sensitive examination includes inspection and/or palpation of the breasts, pelvis, prostate and anorectal regions). EXAM: BP 132/70 Ht 5' 4.768 (1.65m) Wt 221 lb (100.2kg) LMP 10/03/2014 BMI 37.05 kg/(m^2). GENERAL: pleasant, female in no apparent distress HEENT: Normocephalic, atraumatic, mucus membranes moist, and no lesions NECK: Supple, full range of motion, no adenopathy, and thyroid normal DERMATOLOGY: Normal, without lesions, non-icteric, and non-hirsute BREAST: soft, non-tender, symmetric, no dominant mass, normal nipple-areolar complex, no lymphadenopathy, and no nipple discharge + fibrocystic to right breast CHEST: Normal inspiratory effort ABDOMEN: soft, non-tender, and no masses PELVIC: external genitalia normal, normal Bartholin's glands, urethra, Elias-Fela Solis's glands, no vulvar lesions, no cervical lesions, good vaginal support, physiologic discharge present, normal appearing perineal body and perianal region BIMANUAL: uterus normal size, shape and consistency, no adnexal masses, and non-tender, limited due to habitus RECTOVAGINAL: deferred. NEURO: alert and oriented x3,exam grossly non-focal EXTREMITIES: normal ASSESSMENT/PLAN: 1) Health maintenance: Pap done with HPV. Mammogram ordered Mammogram up to date Nutrition, exercise and routine health maintenance exams reviewed. Colon cancer screening: up to date with screening TSH/lipids/glucose: followed by PCP 2) Follow up one year or sooner as needed Urinary frequency - ICD9: 788.41, ICD10: R35.0 Nocturia - ICD9: 788.43, ICD10: R35.1 - Avoid bladder irritants - spicy, citrus, tomatoes, smoking, coffee, tea, pop, carbonation, artificial sweeteners and alcohol - URINE CULTURE Malaise and fatigue - ICD9: 780.79, ICD10: R53.81, R53.83 Menopausal symptoms - ICD9: 627.2, ICD10: N95.1 - Reports hot flashes are minimal. Not affecting QOL - Reports fatigue is severe - Has had prior sleep study - Could consider HRT after reviewing baseline labs - to be done fasting - Recommend walking after meals and improving diet - Follow up to discuss HRT Fibrocystic disease of right breast - ICD9: 610.1, ICD10: N60.11 - Reviewed aggravating and relieving factors - Likely source of breast pain - Reports caffeine use - Recommend well supportive bra - If pain persists or worsens, to follow up RTO to discuss HRT Pavan Contreras APRN.CHELLE documented in this encounter [facility] 12-05-2023 Instructions Jennifer Castaneda MD - 12/05/2023 2:25 PM EDT Images from the original note were not included. Nutrition Reminders: NO NAKED CARBS!! Protein >= Carbs for each meal (if you are going to eat 50g carbs for lunch you should eat 50g protein or more). If you do not eat your carbs for lunch you do not get to save them for dinner- you use them or lose them. Balance your Protein between meals. Unless told otherwise your Minimum protein each day is 30grams per meal but don t be afraid to eat more. Focus on WHOLE FOODS if you can as your Gut Microbiome will benefit and you will feel more satisfied - the only caviot to this is protein shakes if needed. Water intake should be a minimum of 64oz per day- but more is better (to an extent) unless you have a medical condition that requires you to keep it to a minimum. Nothing is off limits- this is not about restricting yourself- this about learning what your body can have and still respond well to and learning how to balance food and still feel good. Track your food, weigh your food, measure your portion sizes as most people underestimate their food by approximately 40%. You should be tracking your Carbohydrates and Protein daily. It s ok if you had a bad day- write it down and move on! Weigh yourself daily or at least 5 times per week, it will help to keep you accountable. If you are hungry- think about your stress level, your sleep (did you get 7.5-9hrs?) and your protein consumption- if you did not meet your goals then those could be contributing to your hunger. During weight loss phase it is ok to use two protein shakes per day and eating one meal along with it - studies have shown you will lose more weight and keep it off. Take a multivitamin daily Sit less Move more- Exercise including resistance training is very important for your health and if you are not getting routine exercise right now there will come a point when it will become an important piece of this process. Meal replacements: Meal Replacements Plant-based protein bars Meal replacements. One option that works for some people is to use meal replacements, as in the DiRECT and Look AHEAD trials.The available options in Look AHEAD included shakes, bars, and meals from a variety of companies ([employer], [employer], [employer], and [employer]). The calorie content was 150 to 220 calories, depending on the product. People who used meal replacements 12 times a week instead of preparing their own meals lost about 11% of their weight in the first year, whereas those who used just two per week lost about 6% of their weight. Keep in mind, though, that people in the trial who used meal replacements also tended to consume a healthier diet over all; they were more likely to have met their goals for dietary fat, fruits and vegetables, and dairy foods, and to have cut back on sweets, than those who didn t use meal replacements. Similarly, in the DiRECT trial, participants consumed special nutritionally complete shakes and soups (the Counterweight-Plus program) for the first 12 weeks.If you opt for meal-replacement drinks, bars, or frozen entrees, here are some criteria to look for: calories, 150 to 300 fat, 3 to 10 grams protein, > 20 grams sugar < 5 g Meal replacements are typically fortified with vitamins and minerals and contain some fiber. Because they are calorie controlled, the amount of added sugars is usually minimal. If you want to try this approach to boost weight loss, ask your dietitian or another member of your health care team how to incorporate the replacements into your meal planning and discuss whether you might need to reduce your doses of diabetes medications to prevent hypoglycemia (low blood sugar) as you cut calories and lose weight. It is important to find a meal-replacement product that suits your taste. If you prefer not to consume processed foods, you can make your own portion-controlled versions. Note that meal replacements don t work for everyone. While some people like meal-replacement shakes, bars, and soups and find them to be a convenient way to sustain a reduced calorie intake over time, others don t feel satisfied drinking them and often end up simply adding them to what they d normally eat--which could lead to weight gain. What s more, some people have a hard time readjusting to eating real food after they stop using meal replacements. Why Is Protein So Important for Weight loss? consuming more protein not only reduces body weight but enhances body composition by decreasing fat mass while preserving fat-free mass During weight loss phase protein consumption (with normal kidney function) should be 1-1.6g protein per Kilogram of body weight (1kg=2.2lbs) On average Women need to Aim for a minimum 90g protein per day Consuming higher protein can also prevent weight regain after weight loss Protein consumption increases hormones responsible for satiety (feeling full)- these include Gut hormones like Glucagon-like peptide-1 (GLP-1), Cholecystokinin (CCK), Peptide Tyrosine-Tyrosine (PYY) and decreasing the Gut hormone responsible for causing hunger Ghrelin Protein has an increased thermogenesis effect of food- which means it take more calories to break down protein when consumed compared to carbohydrates or fats Protein also prevents a losing lean mass during weight loss (lose more fat and preserve fat free mass) which helps to increase resting energy expenditure (resting metabolic rate) Every pound of muscle buck ~ 6 kcal per pound/day vs fat buck ~ 2kcal per pound/day Carbohydrates - Why do You Crave Them? Eating too many refined carbohyrdates (sugar beverages, pastries, bread, pizza) which raises your blood glucose levels and therefore releasing insulin which in turn causes increase in hunger Carbohydrates suppress Ghrelin quickly but does not maintain the suppression for very long therefore hunger returns more quickly Consuming carbohydrates leads to a release of Dopamine feel good hormone in our brain So how do you Curb these cravings? Eating Whole Foods with more fiber - High fiber carbs are absorbed and digested slowly so it does not impact blood sugar levels as much and will help in making you feel sarkar for longer; fiber also is healthy for your gut bacteria and can help with constipation. Remember- carbohydrates are not the enemy but know what a proper serving size is, choose nutritious carbohydrates and space them out between meals. Always- eat your protein first followed by your non starchy vegetables followed by your carbohydrates- it will help your body with your glucose and insulin regulation Processed Foods vs Whole Foods- Impact on Weight: People who eat Ultra Processed food tend to consume about 500 calories more per day Ultra Processed foods are considered Calorie Dense so when a person feels full they have typically already over eaten and consumed more calories Whole Foods (unprocessed foods) tend to be more more filling and more Nutrient Dense Unprocessed foods can be more expensive and not realistic for everyone however when you have the choice to consume unprocessed vs Ultra processed foods always pick unprocessed. Why can't people stop eating Ultra Processed foods? They are economical and optimized for taste by [employer] - they are designed to make you want to keep eating them- they feed common cravings and bypass the mechanisms that tell your brain you are full Benefits of eating Whole Foods and cutting out Ultra Processed Foods Increased concentration and focus (decreased brain fog), improved mood, better sleep, Decrease in fatigue, improvement in gut health, decreased inflammation, Likely WEIGHT LOSS Why You May Want to Weigh Yourself Every Day At any given moment, an estimated 24% of men and 38% of women in the [place] are trying to lose weight (1Trusted Source). Meanwhile, obesity has skyrocketed and working-age adults are gaining about 2.2 pounds (1 kg) annually, on average (2Trusted Source, 3Trusted Source). Recent studies have shown that daily self-weighing may be a powerful tool for both losing and maintaining weight. However, many people believe that weighing yourself daily contributes to bad mental health and disordered eating habits. So what should you believe? This article sets the record straight on whether you should start weighing yourself daily. Weighing Yourself Daily Helps You Lose More Weight The simple act of self-weighing has received lots of attention and stirred up controversy for years. Some people have even thrown away their scale, claiming that it s a highly misleading weight loss tool that results in bad self-esteem and disordered eating habits (4, 5). However, recent studies generally agree that daily weighing is associated with greater weight loss and less weight regain than less-frequent self-weighing (6Trusted Source, 7, 8, 9). One study showed that participants who weighed themselves daily for six months lost 13 more pounds (6 kg), on average, than those who weighed themselves less frequently (10. What s more, those who weigh themselves daily tend to adopt more favorable weight control behaviors, exercise better restraint toward food and eat impulsively less often (10, 11). Interestingly, adopting healthy weight-related behaviors has been shown to be especially important when people emerge from adolescence into adulthood (12). One study in participants aged 18-25 showed that daily self-weighing resulted in better weight loss than less-frequent weighing (13). The researchers concluded that daily self-weighing is a particularly valuable self-regulation tool for this age group. Furthermore, another study showed that people who weighed themselves every day ate 347 fewer calories per day than those who did not. After six months, the group that weighed themselves daily ended up losing a whopping 10 times more weight than the control group (14). BOTTOM LINE: Daily self-weighing may cause people to lose more weight and gain less of it back, compared to less-frequent weighing. Daily Weighing May Motivate You and Improve Self-Control Being aware of your weight is a garcia factor in successful weight loss. Awareness of your weight trend -- that is, whether your weight is going up or down -- is also important. In fact, weighing yourself more often is linked to weight control, while weighing yourself less often has been associated with weight gain. One study found that participants who weighed themselves less often were more likely to report increased calorie intake and decreased restraint toward food (15). Self-weighing promotes self-regulation and awareness of your weight trend and weight-related behaviors. That s why it generally results in greater weight loss (14). Although the exact number on the scale may be unimportant, monitoring weight loss progress motivates you to keep going and generally improves weight-related behavior and self-control. Also, by being more aware of your weight, you can quickly react to lapses in your progress and make necessary adjustments to maintain your goal. Since most people are able to sustain a habit of daily self-weighing, the adherence and acceptability of it is generally quite high (16Trusted Source, 17, 18, 19, 20). It s a minor addition to your daily routine that may help you reap major benefits for your weight. BOTTOM LINE: Daily self-weighing helps you maintain awareness of your weight. Monitoring weight loss progress further motivates you to keep going and improves your self-control. Daily Weighing Helps You Keep the Weight Off Frequent self-weighing has been shown to be a great way to prevent weight gain in the long-term (15, 2, 22, 23). One study investigated how much self-weighing frequency predicted weight change lead two years in working adults (24Trusted Source). It found that there was a significant link between self-weighing frequency and weight change. In normal-weight individuals, daily weighing resulted in a slight weight loss, while those who weighed themselves monthly gained 4.4 pounds (2 kg), on average. However, the largest difference was in overweight individuals. Those who weighed themselves daily lost 10 pounds (4.4 kg), while those who weighed themselves monthly gained 2.2 pounds (1 kg), on average (24). Another study came to a similar conclusion, showing that self-weighing was a significant predictor of body weight over time. Participants lost an extra pound (0.45 kg) of body weight for every 11 days they self-weighed (25). The main reason why this is so effective is that consistent self-weighing allows you to catch weight gain before it escalates and make the necessary changes to prevent more weight gain (15). BOTTOM LINE: Daily weighing may help prevent long-term weight gain, especially in overweight people. Weighing Yourself Daily Is Not as Bad as People Think Not so long ago, frequent self-weighing was thought to be damaging to your mental health. This notion still exists today. Self-weighing is claimed to have negative effects on your mood by continuously reinforcing that your body size is not ideal or appropriate, resulting in an increased risk of developing an eating disorder (4Trusted Source, 5Trusted Source). Although this may be true in a small group of people, most studies have repeatedly come to a different conclusion (9Trusted Source, 26Trusted Source, 27Trusted Source). The available research suggests there is very little evidence that frequent self-weighing is a cause of negative mood or body dissatisfaction, especially as part of a weight loss program (8Trusted Source, 12Trusted Source, 14Trusted Source, 26Trusted Source, 28Trusted Source, 29Trusted Source). In fact, studies indicate that frequent self-weighing may increase body satisfaction, rather than decrease it (9Trusted Source). That said, there is a group of people who may develop a negative body image, low self-esteem or undesirable eating behaviors as a result of daily self-weighing (30Trusted Source). If you find that daily self-weighing causes you to have bad feelings about yourself or your eating behaviors, you should find other methods to measure your progress. BOTTOM LINE: Most studies do not link frequent self-weighing to negative mood or body dissatisfaction. Some even associate them with higher body satisfaction. How to Weigh Yourself for Best Results The best time to weigh yourself is right after you wake up, after going to the bathroom and before you eat or drink. Your weight tends to fluctuate less in the morning than later in the day when you ve had plenty to eat and drink. That is also why people weigh the least in the morning. Also, it is best if you always weigh yourself in similar clothing each day. However, you need to keep in mind that your weight may fluctuate from day to day and can be affected by many factors, including: What you ate or drank the previous day Bloating or water retention Menstrual cycle Whether you ve had bowel movements recently Therefore, it is important to assess the trend of your weight over a longer period of time, instead of drawing conclusions from each and every weighing. A basic scale will do just fine. However, many scales also have the ability to measure your body mass index (BMI), body fat percentage and muscle mass, which may help you get a better picture of your progress. There are also several apps available for your phone or computer that allow you to easily enter your daily weight and see the trend of your weight change. Happy Scale for iPhone and Yola for Android are two such apps. BOTTOM LINE: It is best to weigh yourself right after you wake up, after going to the bathroom and before you eat or drink anything. Other Ways to Track Your Progress Although self-weighing may be a valuable tool, it has some limitations. If you re exercising and gaining muscle, the scale may not show your progress and instead simply show that you have gained weight. While losing weight can indicate progress, a scale does not differentiate between healthy weight (muscle) and unhealthy weight (fat). Therefore, it may be good to add other ways of tracking your progress to your regimen. Here are some examples: Measure circumference: Muscle has much less volume than fat, so your circumference may be decreasing even if your weight stays the same or goes up. Measure body fat percentage: By measuring your body fat percentage, you can observe changes in fat mass, regardless of your weight. Take pictures of yourself regularly: You can observe any changes in your physique by comparing photos of yourself in similar clothing. Note how your clothes feel: Any changes in your weight will probably affect how your clothes fit. Feeling them become looser or tighter is one of the best indicators of changes in your body. BOTTOM LINE: Other ways to track your progress include measuring your circumference, measuring your body fat percentage and taking pictures of yourself. Take Home Message Weighing yourself every day can help increase your awareness of your weight and weight-related behaviors. It may help you lose more weight and prevent you from gaining that weight back in the long-term. Daily self-weighing may just be that extra motivation you need to achieve your weight goals. [email or web address]/nutrition/d aily-weighing <15 gram carb fruit options Berries have the lowest sugar content 1/2 medium apple - 12.5 carbs 1/2 medium avocado - 6.5 gm carbs 1/2 medium banana - 15 carbs 1/2 cup blueberries - 11 carbs - may actually help you lose weight 1/2 cup fresh cherries -11 carbs 1 medium Aurora -9 carbs 1/2 cup fresh cranberries - 6.5 carbs 1/2 c grapes - 15 carbs 1/2 medium grapefruit - 10.5 carbs 1/2 cup diced honeydew melon - 8 carbs 1 medium kiwi without skin - 11 carbs 1/2 cup sliced larry -14 carbs 1 medium nectarine - 15 carbs 1 medium orange -15.5 carbs 1 medium peach -14.5 carbs 1/2 cup fresh pineapple -11 carbs 1 medium plum -7.5 carbs 1 prune - 6 carbs 1/4 c raisins - 31.25 carbs 1/2 cup raspberries -7.5 carbs 1/2 c strawberries - 12.7 carbs 1 medium tangerine -12 carbs 1/2 cup diced watermelon - 6 carbs 5 (FIVE) gram carb vegetable options 1 cup raw OR cup cooked: Asparagus [place] sprouts Beets Broccoli Brussel sprouts Cabbage Carrots Cauliflower Celery [place] Eggplant Green beans Lettuce Peppers Snap peas Spaghetti squash Spinach Tomato Turnips Zucchini 15 gram carb vegetable options cup cooked corn or hominy corn on the cob, large (5 oz) cup cooked green peas cup cooked howard beans 1 small potato or sweet potato cup cooked potato, plain cup cooked sweet potato, plain 1 cup winter squash (pumpkin, acorn, butternut) 1 cup marinara or pasta sauce - check label cup tomato juice cup tomato puree Beans, Seeds, Nuts cup cooked beans (kidney, torres, red, green, etc.) cup cooked lentils cup baked beans 4 tablespoons nut butter Grains Brown rice 1/2 c 5.5g protein 24 carb White long-grain rice 1/2 c 2g protein 22.5 carb Quinoa 1/2 c 4 gm complete protein 25 carb Oatmeal, old fashioned 1/2 c 5g protein 27g carb Protein - no carbs Egg 1 large - 6g Egg white 1 large 3.6g 3 oz is approximately the size of a deck of cards and equals 21 g protein so 4 oz is 28 gm protein Beef, Chicken, Melber, Pork, Gaines 1 oz 7g Fish, Tuna Fish 1 oz 7g (Starkist tuna packet 2.6 oz 17 gm protein) Seafood (Crabmeat, Shrimp, Lobster) 1 oz 6g Protein shakes (read labels) Premier Protein or generic [employer] Equate, [employer] High Performance- 30g protein & 1g carb - meal replacement Premier Protein powder or generic- 30 gm protein, 1g carb Premier Protein plant protein powder - 25 gm protein, 0 suger/2 carb Vanilla and chocolate (not a meal replacement) Fairlife 30 gram protein - 30g protein & 3g carb BOOST Glucose Control Max 30g Protein Nutritional Drink - 30g protein & 1 carb - meal replacement Slimfast High Protein - 20g protein & 1g carb Ensure Max Protein Nutrition Shake 30g protein & 2 carb Protein AND carbs Beef/Melber Jerky 1 oz dried 10-15g protein - check carb count, can be high if sugar added Slim [place] - 6 gm protein and 4 net carb Great Value original turkey sausage sticks - 7 gm protein and 2 gm carb Kimberly & Vernon (at [employer]) Original smoked sausage sticks - 8 gm protein and 0 carb Imitation Crab Meat 1 oz - 2g protein & 4g carb Milk, skim 2% or 1% 8 oz - 8g protein & 12g carb Albanian yogurt Full Fat Albanian Yogurt 1 cup - 20.4g protein & 9.1g carb 2% Albanian Yogurt 1 cup - 22.7g protein & 9.1g carb 0% (fat-free) Albanian Yogurt - 1 cup 24g protein & 9.3g carb Aldi Protein Albanian yogurt single svg - 15g protein & 7g carb Chobani Zero Sugar single svg: - 11g protein & 5g carb Dannon Light + Fit 1 single svg - 12g protein & 9g carb Oikos Pro single svg - 20g protein & 8g carb Oikos Triple Zero Albanian Nonfat Yogurt 1 single svg - 15g protein & 7g carb :ratio, KETO Friendly Dairy Snack 1 single svg - 15g protein & 2g carb :ratio Protein 1 single svg - 25g protein & 8g carb Two Good Lowfat Albanian Yogurt, [place], Lower Sugar - 12g protein & 2g carb Yoplait Protein 1 single svg 15gm protein & 5gm carb Cheese each oz Brie 5.9g protein & 0.1g carb Cheddar Cheese 7g protein & 0.4g carb Mozzarella Cheese 6.3g protein & 0.6g carb Devin Cheese 6.7g protein & 0.7g carb Parmesan Cheese 10g protein & 0.9g carb Cream Cheese 1.7g protein & 1.2g carb Feta 4g protein & 1.2g carb Georgian Cheese 7.6g protein & 1.5g carb Barroso s Low Fat Cottage Cheese 1/2cup 12g protein & 4g carb Legumes Lentils cup 9g protein & 20g carb Howard beans cup 7g protein & 20g carb Kidney, Black, [place], Cannellini beans cup 8g protein & 20g carb Soybeans 1/2 c 14g complete protein & 8.5g carb [place] milk, unsweetened 8 oz 1g protein & 2g carb Soy milk 8 oz 3.5g protein & 1.6g carb Tofu 1/2 cup 10g protein & 2.3g carb Peanut butter, natural 2 Tbsp 7-8g protein & 4g net carbs, 190 calories PB2 powder 2 Tbsp 6g protein & 5g carb Nuts and Seeds per oz Almonds - 5.9g protein & 6.1g carb [place] Nuts - 4.0g protein & 3.4g carb Cashews - 5.1g protein & 9.2g carb Hazelnuts - 4.2g protein & 4.7g carb Hemp seeds 3 T/30 gms - 9.5 gm complete protein and 2.5 gm carb Peanuts - 7g protein & 4.6g carb Pecans - 2.6g protein & 3.9g carb Pistachios - 5.8g protein & 7.8g carb Pumpkin Seeds - 6.9g protein & 5g carb [place] Seeds - 5.8g protein & 5.6g carb Walnuts - 4.3g protein & 3.8g carb Educational Podcasts: The Dr. Huynh Show- Real Conversations about Health and Weight * January 20, 2023 what you need to know about Carbohydrates and Weight *December 30, 2022 Protein why we need it and how to eat more Protein *December 09, 2022 Menopause and Weight Gain- All the Details with Dr. Sheeba Chavez *November 18, 2022 The Science Behind Ultra Processed Food and Weight Gain *September 02, 2022 Effects of sleep and Stress of Weight and Health with Dr. Sarahi Ray-Withers, DO * August 26, 2022 Recognizing and Resolving Emotional Eating with Dr. Flores Obesity: A Disease *August 26, 2022 Episode 80 Clinical conversations: The Role of Physical Activity in Weight Management * December 06, 2022 Episode 84 Clinical Conversations: NAFLD, The [place] Disease of Metabolic Syndrome *December 052019 Episode 20 Article Reviews: The Role Ultra Processed Diets Play in Weight Gain *November 17, 2019 Episode 21 Clinical Conversations: Breaking Weight Plateaus HOW DOES CHRONIC STRESS AFFECT EATING PATTERNS? Chronic stress can affect the body s use of calories and nutrients in various ways. It raises the body s metabolic needs and increases the use and excretion of many nutrients. If one does not eat a nutritious diet, a deficiency may occur.Stress also creates a chain reaction of behaviors that can negatively affect eating habits, leading to other health problems down the road. Stress places a greater demand on the body for oxygen, energy, and nutrients. Yet people who experience chronic stress may crave comforting foods such as highly processed snacks or sweets, which can be high in unhealthy fats, sugar, and calories but low in micronutrients. People feeling stress may lack the time or motivation to prepare nutritious, balanced meals, or may skip or forget to eat meals. Stress can disrupt sleep by causing real estate appraiser sleep or more frequent awakenings, which leads to fatigue during the day. In order to cope with daytime fatigue, people may use stimulants to increase energy such as with caffeine or high-calorie snack foods. The reverse may also be true that poor-quality sleep is itself a stressor. Studies have found that sleep restriction causes a significant increase in cortisol levels. During acute stress, adrenaline suppresses the appetite.But with chronic stress, elevated levels of cortisol may cause cravings, particularly for foods high in sugar, fat, and calories, which may then lead to weight gain. Cortisol favors the accumulation of fat in the belly area, also called central adiposity, which is associated with insulin resistance and an increased risk of type 2 diabetes, cardiovascular disease, and certain breast cancers.4,6-8 It also lowers levels of the hormone leptin (that promotes satiety) while increasing the hormone ghrelin (that increases appetite). https://[employer].[email or web address]-conten [email or web address]/sites//[email or web address] [email or web address].pdf Tips for eating away from home: Youtube video: https://www.[employer].com/watch?v=V9oFJW oNYoA Meals away from home make it harder to control ingredients, calories, and portions. This can be particularly challenging for people with Type 2 diabetes (and for those of us trying to avoid getting this condition). The following tips can help you enjoy eating out without abandoning your efforts to eat well. Ask how the food is prepared. Before you order, ask about ingredients and how the menu selections are prepared. Try to choose dishes made with whole grains, healthy oils, vegetables, and lean proteins. Meat that has been broiled, poached, baked, or grilled is a more health-conscious option than fried foods or dishes prepared with heavy sauces. Look for less. Your eyes are the perfect instrument for sizing up portion sizes. Use your estimating techniques to size up the food on your plate. 1 thumb tip = 1 teaspoon of peanut butter, butter, or sugar 1 finger = 1 oz. of cheese 1 fist = 1 cup cereal, pasta, or vegetables 1 handful = 1 oz. of nuts or pretzels 1 palm = 3 oz. of meat, fish, or poultry Plan on eating half your meal and take the rest home to enjoy for lunch or dinner the next day. Order an extra side of veggies. Non-starchy vegetables, such as green beans, broccoli, asparagus, or summer squash, will help you fill up with low-calorie choices. Think ahead. Learn important nutrition information ahead of time. Most fast-food chains provide calories, sodium, and fat content for their menu items. Check out www.FREECULTR for a listing of over 50,000 foods, including many restaurant items. You can also visit company-specific websites Dining Out Tips Dining out is tricky. You have less control over ingredients & portions so even when you think you re ordering healthy, it s likely way more calories & less nutrition than a similar meal you d make at home. Research shows people who do best losing weight & keeping it off don t dine out much only 2.5 times out of 21 meals in a week. So, when you do dine out, make sure to use these PRO TIPS to keep your body happy DINE OUT LIKE A PRO 1. RUIN Your Appetite. About 1.5 hrs before you go out, eat something to cut hunger so you don t get to the restaurant & dive head first into the breadbasket. Try a produce + protein snack such as an apple + almonds or celery + sunflower seed butter. 2. Know BEFORE You Go. Do a few minutes of research before you re swept up in a whirlwind of socializing & drinking. This could be as simple as perusing the online menu on your phone on the ride to the restaurant. 3. Order a Vice-Virtue BUNDLE. Pair a healthy superfood with a less-healthy craving. It s the only way to honor both your inner health nut and wild child. At a banner joint and really want the pulled pork? Get it - but instead of plopping it on a refined grain bun, ask to put it alongside a salad. 4. Limit FLAVORS. Research shows variety stimulates appetite, meaning tasting little bits of many different foods will trigger you to over eat. So if you find yourself facing a tableful of small plates or buffet-style eating, commit to your absolute favorites rather than sampling every option. 5. Entree + ONE. It s often not just the meal that racks up CRAP calories, it s also the add-on apps + drinks + desserts. Focus on your main and skip these extras, or at least just pick your favorite ONE. Smart: Pick an appetizer salad! When [place] researchers gave women a 100-calorie appetizer of either a salad or garlic bread, those who had the tiny salad ended up eating 21% less of their main course. A diet that leaves you feeling full and satisfied over the course of the day leaves less room for wondering about whether you should have a snack when you re bored. 1. Eat regularly throughout the day Try to spread out your calorie intake throughout a regular meal and snack schedule. This may keep you more full and less hungry than eating the same number of calories on a less regular meal schedule (5Trusted Source). If you re feeling content with your food choices for the day, you might be less likely to reach for a snack when you re bored. What s more, knowing that you plan to eat a meal or snack in the next few hours could be motivation to hold back from eating until then. The same meal schedule doesn t work for everyone. Some people like to have three meals and a few snacks each day, while others may prefer to have more or less. Finding a routine that works for you and sticking with it seems to matter more than exactly how many meals and snacks you have each day. 2. Don t restrict your favorite foods If you tend to crave or reach for certain foods when you re bored, you might be tempted to completely stop eating those foods to remove the temptation. However, for some people, research shows this approach might be counterproductive. If you find you re more susceptible to food cravings, depriving yourself of certain foods might make you crave them more in the short term (6Trusted Source, 7Trusted Source, 8Trusted Source). Rather than eliminating the foods you crave, try eating them regularly but in moderation. This might help reduce your urge to snack on those foods when you re bored. 3. Have nutritious, filling snacks When you ve just had a filling meal or snack, you may be less likely to associate feeling bored with wanting to eat. Certain foods are more filling than others. Some particularly filling foods include: Protein: eggs, fish, meat, yogurt, cottage cheese Fiber-rich foods: oatmeal, quinoa, whole grains, legumes, popcorn Foods high in water: fruits, vegetables, soups 4. Eat from a plate Sometimes it s hard to distinguish between hunger and boredom. Ocassationally, there may still be times when you reach for a snack when you re bored. To avoid overeating and letting boredom get the best of your appetite in those moments, portion your snacks onto a plate or serving dish rather than eating them directly from the bag or container. Visual cues, such as the plate size, container size, and even the type of dish you eat from, can all influence how much you eat (17Trusted Source, 18Trusted Source, 19Trusted Source). SUMMARY Eating a healthy diet comprising regular meals, nutritious and filling snacks, and appropriate portion sizes may be more satisfying and thus make it less tempting to eat when you re feeling bored. 5-8. Tune in to your emotions Researchers know that your emotions and mood often influence when, what, and how much you eat. Experts have also suggested that how well you regulate your emotions can influence boredom eating. Poor emotional regulation could potentially lead to an increase in eating when you re feeling bored (22Trusted Source, 23Trusted Source). Practicing self-awareness and developing a better understanding of how your own emotions are influencing your appetite is a great starting place to combat boredom eating. 5. Eat mindfully To be mindful means to be conscious, aware, and focused on the present moment. To eat mindfully means to be aware of your mental and physical states related to food. Some studies have found mindfulness is particularly helpful at helping people reduce eating in response to emotions like boredom (24Trusted Source, 25Trusted Source, 26Trusted Source). Mindful eating is useful in differentiating between boredom and hunger, as it emphasizes paying close attention to your cravings and hunger and fullness cues. 6. Know your hunger signs Being perceptive of your specific hunger and fullness signs may be one of the most effective ways to determine whether you re hungry or bored. When your body is physically hungry and in need of calories for energy, you may notice signs like your stomach growling, a headache, and feelings of weakness or fatigue. On the other hand, when you re experiencing boredom hunger -- or another type of emotional hunger -- you may crave a certain food without any of the traditional signs of physical hunger. 7. Embrace being bored Throughout 2019 and into 2020, people reported feeling bored at higher rates than usual due to the COVID-19 pandemic (27Trusted Source). In certain situations, being bored too often may have detrimental health effects, such as increased rates of depression and altered eating habits (1Trusted Source, 28Trusted Source). Still, a little boredom is OK and normal to experience from time to time. What s more, research has linked boredom to certain benefits. For example, it may help motivate creativity (29Trusted Source, 30Trusted Source). Trying to prevent boredom or override the feeling by eating and finding other distractions doesn t always work. You might find meaning in the downtime by trying to embrace boredom instead. 8. Take it easy on yourself Remember, it s normal to reach for a snack out of boredom on occasion. When it happens, don t take it as a failure. Rather, use it as a learning experience and opportunity to treat yourself with kindness and compassion. SUMMARY Your mood and emotions play a significant role in psychologically induced hunger like boredom eating. Learning to be aware of your emotions, hunger triggers, and fullness cues can help prevent you from eating because you re bored. 9-11. Understand your environment Much of what you eat is influenced by your environment, and the same goes for when and how much you eat. Here are a few specific ways you can tailor your environment to discourage yourself from boredom eating when the urge strikes. 9. Know your triggers Especially when it comes to psychological types of hunger like boredom eating, external factors often trigger the urge to eat. Identifying the triggers in your life that tend to cause the urge to eat when you re bored is garcia to breaking the habit. Some common triggers to be aware of are stress, food availability, and pictures of food. Make notes in a food journal about what you re doing and your environment when you feel the urge to eat. This might help identify -- and stop -- boredom eating patterns. 10. Avoid the urge to eat in front of a screen Eating in front of a screen while you re bored can influence you to overeat when you aren t even hungry. Many people turn to screen-based activities like watching TV or scrolling on their phone when they re feeling bored. Some studies have found that people tend to eat more than they otherwise would when they re distracted or in front of a screen, such as a TV or computer (35Trusted Source, 36Trusted Source, 37Trusted Source). Break associations you might have between eating and screen time by making a point of eating meals at a table -- not in front of the TV -- and putting your phone away while you re dining. Consider replacing mindless eating during screen time with another activity, such as knitting, doodling, or playing with a toy or piece of jewelry, to keep your hands busy while you watch TV. 11. Change your scenery Sometimes all it takes to get your mind off food when you re feeling bored is a little change of scenery. When you re bored and fighting the urge to snack, standing up and moving to a new location -- even if it s just from one room to another -- may be enough to distract your mind from food until the boredom passes. SUMMARY External factors often trigger urges to eat when you re not physically hungry. Identifying the factors in your environment that trigger boredom eating is garcia to breaking those habits. 12-13. Mix things up To be bored means that you re feeling uninterested in your current activity. The feeling often occurs when the day has been monotonous or repetitive. The same goes for boredom eating. You may eat simply as a way to escape the regular routines of the day ([employer], [employer]). Adding variety to your day keeps things feeling fresh and exciting, and it might fend off boredom eating. 12. Take a walk When you re feeling bored, taking a walk not only provides a distraction from any urges to snack but also physically removes you from food temptations. Sometimes a quick [id number] walk is all it takes to recenter yourself and forget about the urge to snack out of boredom. If you re not able to take a walk, you might find it helpful to take a few minutes to stretch or do breathing exercises. 13. Make new habits One of the upsides of being bored is that it can drive you to try new things. Next time you feel bored, take a few minutes to think about how you d really like to be spending that time. Is there a new hobby you d like to try or an old book that you never got around to reading? Try to look at boredom as a space for meaningful stimulation in your day. 13 Ways to Stop Eating When You're Bored (eelusion) Tips to reduce food cravings Aim to eat nutritionally balanced meals. Foods with protein and fiber provide longer-lasting satisfaction. Avoid long stretches of not eating. Eat a nutritious meal or snack every 3-4 hours. Waiting too long to eat because you are busy or distracted may only lead to stronger hunger when you do eat and the risk of overeating. Also keep in mind that if your bedtime is more than 4 hours after you ve finished dinner, you may feel hungry again; to avoid snacking late night which can disrupt sleep, try to go to bed earlier when possible. Avoid choosing hyperpalatable or ultraprocessed snacks that are high in sodium, fat, sugar, and calories but low in nutrition. These are the types of foods that trigger the brain reward pathways and cause cravings to eat more. Choose satisfying, less-processed snacks like fresh fruit, a handful of nuts, or a cup of low-sugar yogurt. Limit environmental cues to eat, such as scrolling through social media posts about food or mukbang (online videos of people eating enormous quantities of decadent meals) and watching television cooking shows. In an office setting, detour away from the candy bowls and platters of bagels and treats that may be sitting in the break room. Food cravings are sometimes learned behaviors that are associated with an event or environment, such as craving potato chips while watching late-night television. If so, research suggests that it is possible to unlearn the behavior and reduce the craving by avoiding the food completely for an extended time. [25] In addition, you can try changing the association by changing your evening routine with a different activity like listening to an audiobook or podcast. Practice mindfulness when sensing a growing craving. Ask yourself if you are stressed, bored, angry? If so, try instead doing breathing exercises, talking a brisk 5-10 minute walk, listening to a meditation michelle or podcast, or playing a few favorite songs. If you can distract yourself from eating for about 5-7 minutes, the craving may subside. Learn more about mindful eating. Try other dopamine-inducing activities such as taking a walk in nature on a [place] day, dancing, or watching a funny video and laughing aloud! documented in this encounter [facility] 12-05-2023 Note HNO ID: [id number] Author: JENNIFER CASTANEDA MD Service: ? Author Type: Physician Type: Progress Notes Filed: 12/05/2023 12:51 Note Text: Data Abstractor offered: Patient declines. Lillian Romero is a 53 year old female who presents for concerns regarding recurrent UTIs. Pt reports no symptoms today- pt reports last UTI was in September 2023.pt reports she had at least 3 UTIs last year. Pt states she has some Urgency and mild USI so she wears a pad that causes a lot of moisture which she wonders if it contributes. Pt also during if she is through menopause completely. Patient has not had a menses in years however still has hot flashes at times. Patient reports hot flashes are worse after having caffeine. Patient reports does not get regular exercise or watch her diet. Patient also has questions about osteoporosis. She states that her mother was diagnosed with osteoporosis has had a back fracture. Patient offers no other complaints today. OB History T3 L3 SAB3 IAB0 Ectopic0 Multiple0 Live Births0 [employer] History LMP: 10/03/2014 (Exact Date), Ablation Age at Menarche: Age at First : Age at Menopause: [employer] History Comments: Sexual Activity: Yes; Male Contraception: Vasectomy PAST MEDICAL HISTORY No date: Abdominal pain, unspecified site Comment: Resolved No date: Allergic gastroenteritis No date: Allergic rhinitis No date: Anemia No date: Avulsion fracture No date: Cardiac murmur No date: Cervicalgia No date: Chronic sinusitis No date: Diarrhea No date: Esophagitis, unspecified No date: Essential hypertension No date: Eustachian tube dysfunction No date: Folliculitis No date: Fracture of great toe Comment: right toe No date: Generalized anxiety disorder No date: Generalized anxiety disorder No date: GERD (gastroesophageal reflux disease) No date: Goiter No date: Headaches No date: Hypothyroidism No date: IBS (irritable bowel syndrome) No date: Malaise and fatigue No date: Migraines No date: Nausea alone No date: Otalgia No date: Right arm pain No date: Rosacea No date: Unspecified hypothyroidism No date: Urine frequency No date: Vitamin D deficiency PAST SURGICAL HISTORY 12/19/2015: BIOPSY BREAST OPEN INCISIONAL; Right Comment: Bx of breast, incisional 05/03/2013: COLONOSCOPY FLX DX W/COLLJ SPEC WHEN PFRMD Comment: Colonoscopy 04/20/2018: COLONOSCOPY FLX DX W/COLLJ SPEC WHEN PFRMD Comment: repeat 5 years 04/07/2023: COLONOSCOPY SCREENING Comment: tubular adenoma of right colon, next colonoscopy due in 5 years 04/13/2013: ENDOMETRIAL ABLTJ THERMAL W/O HYSTEROSCOPIC GUID 11/14/2003: ESOPHAGOGASTRODUODENOSCOPY TRANSORAL DIAGNOSTIC Comment: EGD No date: LAPS ABD PRTMANDOMENTUM DX W/WO SPEC BR/WA SPX Comment: Laparoscopy 2010: PAST SURGICAL HISTORY OF; Left Comment: Hallux limitus No date: TONSILLECTOMY PRIMARY/SECONDARY Comment: Tonsillectomy FAMILY HISTORY Problem Relation Age of Onset Hypertension Mother ULCERS/hypercholestremia other (epilipsy) Mother Hypertension Father HYPERCHOLESTREMIA Melanoma Father ear other (HYPOTHYRODISM) Sister Arthritis Sister Neck and Back Surgery other (HYPOTHYROIDISM) Sister Heart Paternal Grandmother Heart Paternal Grandfather [place] Social History Tobacco Use Smoking status: Never Smokeless tobacco: Never Vaping Use Vaping Use: Never used Substance Use Topics Alcohol use: Yes Comment: Occasionally Drug use: No Current Outpatient Medications Medication Sig SYNTHROID 137 mcg tablet Magnesium 250 mg tab Take 250 mg [...] D ORAL) Take 50 mcg by mouth. [id number] (REFRESH DIGITAL) 0.5-1-0.5 % drop Use in eyes. levothyroxine (SYNTHROID) 150 mcg tablet Daily, and MWF takes an extra 25mcg (Patient taking differently: Take 1.37 mcg by mouth once daily. Daily, and MWF takes an extra 25mcg) ACETAMINOPHEN (TYLENOL ORAL) Take 2 tablets by mouth as needed. No current facility-administered medications for this visit. Allergies As of Date: 12/05/2023 Allergen Noted Reaction ANIMAL DANDER 01/31/2023 Other: See Comments ENVIRONMENTAL [OTHER] 07/09/2006 MOLD SPORES 01/31/2023 Other: See Comments Fully Assessed 04/30/2023 REVIEW OF SYSTEMS Abdomen: no pain Bladder: some urgency and USI, no dysuria today.. Expanded ROS: GENERAL: Negative for fever Allergies and current medication updated:Yes EXAM: BP 124/72 Wt 213 lb (96.6kg) LM (more content not included)... [facility] 12-05-2023 History of Present illness Narrative Data Abstractor offered: Patient declines. Lillian Romero is a 53 year old female who presents for concerns regarding recurrent UTIs. Pt reports no symptoms today- pt reports last UTI was in September 2023.pt reports she had at least 3 UTIs last year. Pt states she has some Urgency and mild USI so she wears a pad that causes a lot of moisture which she wonders if it contributes. Pt also during if she is through menopause completely. Patient has not had a menses in years however still has hot flashes at times. Patient reports hot flashes are worse after having caffeine. Patient reports does not get regular exercise or watch her diet. Patient also has questions about osteoporosis. She states that her mother was diagnosed with osteoporosis has had a back fracture. Patient offers no other complaints today. OB History T3 L3 SAB3 IAB0 Ectopic0 Multiple0 Live Births0 [employer] History LMP: 10/03/2014 (Exact Date), Ablation Age at Menarche: Age at First : Age at Menopause: [employer] History Comments: Sexual Activity: Yes; Male Contraception: Vasectomy PAST MEDICAL HISTORY No date: Abdominal pain, unspecified site Comment: Resolved No date: Allergic gastroenteritis No date: Allergic rhinitis No date: Anemia No date: Avulsion fracture No date: Cardiac murmur No date: Cervicalgia No date: Chronic sinusitis No date: Diarrhea No date: Esophagitis, unspecified No date: Essential hypertension No date: Eustachian tube dysfunction No date: Folliculitis No date: Fracture of great toe Comment: right toe No date: Generalized anxiety disorder No date: Generalized anxiety disorder No date: GERD (gastroesophageal reflux disease) No date: Goiter No date: Headaches No date: Hypothyroidism No date: IBS (irritable bowel syndrome) No date: Malaise and fatigue No date: Migraines No date: Nausea alone No date: Otalgia No date: Right arm pain No date: Rosacea No date: Unspecified hypothyroidism No date: Urine frequency No date: Vitamin D deficiency PAST SURGICAL HISTORY 12/19/2015: BIOPSY BREAST OPEN INCISIONAL; Right Comment: Bx of breast, incisional 05/03/2013: COLONOSCOPY FLX DX W/COLLJ SPEC WHEN PFRMD Comment: Colonoscopy 04/20/2018: COLONOSCOPY FLX DX W/COLLJ SPEC WHEN PFRMD Comment: repeat 5 years 04/07/2023: COLONOSCOPY SCREENING Comment: tubular adenoma of right colon, next colonoscopy due in 5 years 04/13/2013: ENDOMETRIAL ABLTJ THERMAL W/O HYSTEROSCOPIC GUID 11/14/2003: ESOPHAGOGASTRODUODENOSCOPY TRANSORAL DIAGNOSTIC Comment: EGD No date: LAPS ABD PRTM&OMENTUM DX W/WO SPEC BR/WA SPX Comment: Laparoscopy 2010: PAST SURGICAL HISTORY OF; Left Comment: Hallux limitus No date: TONSILLECTOMY PRIMARY/SECONDARY <AGE 12 Comment: Tonsillectomy FAMILY HISTORY Problem Relation Age of Onset Hypertension Mother ULCERS/hypercholestremia other (epilipsy) Mother Hypertension Father HYPERCHOLESTREMIA Melanoma Father ear other (HYPOTHYRODISM) Sister Arthritis Sister Neck and Back Surgery other (HYPOTHYROIDISM) Sister Heart Paternal Grandmother Heart Paternal Grandfather [place] Social History Tobacco Use Smoking status: Never Smokeless tobacco: Never Vaping Use Vaping Use: Never used Substance Use Topics Alcohol use: Yes Comment: Occasionally Drug use: No Current Outpatient Medications Medication Sig SYNTHROID 137 mcg tablet Magnesium 250 mg tab Take 250 mg [...] D ORAL) Take 50 mcg by mouth. bumfwcnnorpclcv-[id number] (REFRESH DIGITAL) 0.5-1-0.5 % drop Use in eyes. levothyroxine (SYNTHROID) 150 mcg tablet Daily, and MWF takes an extra 25mcg (Patient taking differently: Take 1.37 mcg by mouth once daily. Daily, and MWF takes an extra 25mcg) ACETAMINOPHEN (TYLENOL ORAL) Take 2 tablets by mouth as needed. No current facility-administered medications for this visit. Allergies As of Date: 12/05/2023 Allergen Noted Reaction ANIMAL DANDER 01/31/2023 Other: See Comments ENVIRONMENTAL [OTHER] 07/09/2006 MOLD SPORES 01/31/2023 Other: See Comments Fully Assessed 04/30/2023 REVIEW OF SYSTEMS Abdomen: no pain Bladder: some urgency and USI, no dysuria today.. Expanded ROS: GENERAL: Negative for fever Allergies and current medication updated:Yes EXAM: BP 124/72 Wt 213 lb (96.6kg) LMP 10/03/2014 GENERAL: pleasant, female in no apparent distress HEENT: Normocephalic, atraumatic, mucus membranes moist, and no lesions NECK: Supple and full range of motion DERMATOLOGY: Normal, without lesions, non-icteric, and non-hirsute NEURO: alert and oriented x3,exam grossly non-focal EXTREMITIES: normal ASSESSMENT AND PLAN: Encounter Diagnosis ICD-10-CM 1. Urinary urgency R39.15 2. Recurrent UTI N39.0 3. Family history of osteoporosis Z82.62 4. Menopausal symptoms N95.1 5. Discussed urinary tract prevention with d-mannose and udwr-wwm-pecpjou Azo urinary tract defense probiotics/vaginal probiotics. Discussed urinating before and after intercourse. Discussed avoiding using pads. We also discussed if these measures fail that we could try small amount of vaginal estrogen at the urethral meatus. 6. Urine dip negative. 7. HRT reviewed for Menopausal symptoms. Lifestyle modifications were reviewed with the patient including nutrition, exercise, decreasing caffeine and alcohol intake. I spent a total of 20 minutes on the date of the service which included preparing to see the patient, mkag-[id number] patient care, completing clinical documentation, obtaining and/or reviewing separately obtained history, performing a medically appropriate examination, counseling and educating the patient/family/caregiver, and ordering medications, tests, or procedures. Jennifer Ingram MD documented in this encounter [facility] 04-15-2023 Telephone encounter Note Patient updated via My Chart. HM, history and recall done. Adonay Lr LPN [facility] 04-15-2023 Miscellaneous Notes Patient updated via My Chart. HM, history and recall done. Adonay Lr LPN Please let patient know pathology showed tubular adenoma-benign, but premalignant type of polyp. Recommend repeat colonoscopy in 5 years for surveillance. Please update HM and generate recall Pt called wondering about the results of her Colonoscopy from 04/07/23 documented in this encounter [facility] 04-15-2023 Telephone encounter Note Please let patient know pathology showed tubular adenoma-benign, but premalignant type of polyp. Recommend repeat colonoscopy in 5 years for surveillance. Please update HM and generate recall [facility] Work Phone: 04-15-2023 Telephone encounter Note Pt called wondering about the results of her Colonoscopy from 04/07/23 [facility] Work Phone: 04-08-2023 Miscellaneous Notes Tried to contact patient, voicemail only had number as identifier. She is s/p colonoscopy 04/07/2023 with findings of < 1cm tubular adenoma of right colon. She will require follow up surveillance colonoscopy in 5 years. HM updated (confirmed) and recall letter generated. documented in this encounter [facility] 04-07-2023 Nurse Note Awakens easily when spoken [...] on left side. documented in this encounter [facility] 04-07-2023 History and physical note UPDATED PROCEDURAL [...] SIGNATURE: Zoe Peterson MD PATIENT NAME: Lillian Romero DATE: April 07, 2023 TIME: 7:33 AM Source Note - Zoe Peterson MD - 04/07/2023 8:15 AM EST HISTORY AND PHYSICAL Lillian Romero 1970 REFERRING PHYSICIAN: No ref. provider found [...] D ORAL) Take 50 mcg by mouth. [id number]-[id number] (REFRESH DIGITAL) 0.5-1-0.5 % drop Use in [...] Sister Heart Paternal Grandmother Heart Paternal Grandfather [place] REVIEW OF SYMPTOMS: The review of systems data was entered by the nurse and reviewed by nv Nursing Notes: Laura Harris LPN 02/05/2023 3:08 [...] Mammogram screening? 2021 Last Colonoscopy: 2017 Laura Brown, VP PATIENT I have confirmed and edited as necessary, the PFSH and ROS obtained by others. Dipika Boles PA-C PHYSICAL EXAMINATION: General: The patient is 52 year old female, well nourished, well hydrated in no acute distress. The patient is oriented to time, place, and person. VITALS: Blood pressure 118/86, pulse 65, temperature 36.4 C (97.5 F), height 165.1 cm (5' 5), weight 98.6 kg (217 lb 6.4 oz), [...] letter to requesting physician via US mail. Dipika Boles PA-C HISTORY AND PHYSICAL Lillian Romero 1970 REFERRING PHYSICIAN: No ref. provider found [...] D ORAL) Take 50 mcg by mouth. [id number]-imxijly-[id number] (REFRESH DIGITAL) 0.5-1-0.5 % drop Use in [...] Sister Heart Paternal Grandmother Heart Paternal Grandfather [place] REVIEW OF SYMPTOMS: The review of systems [...] the PFSH and ROS obtained by others. Dipika Boles PA-C PHYSICAL EXAMINATION: General: The patient is 52 year old female, well nourished, well hydrated in no acute distress. The patient is oriented to time, place, and person. VITALS: Blood pressure 118/86, pulse 65, temperature 36.4 C (97.5 F), height 165.1 cm (5' 5), weight 98.6 kg (217 lb 6.4 oz), [...] letter to requesting physician via US mail. Dipika Boles PA-C documented in this encounter [facility] 02-05-2023 History of Present illness Narrative HISTORY AND PHYSICAL Lillian Hernandez Brandon 1970 REFERRING PHYSICIAN: No ref. provider found [...] D ORAL) Take 50 mcg by mouth. [id number] (REFRESH DIGITAL) 0.5-1-0.5 % drop Use in [...] Sister Heart Paternal Grandmother Heart Paternal Grandfather [place] REVIEW OF SYMPTOMS: The review of systems [...] the PFSH and ROS obtained by others. Dipika Boles PA-C PHYSICAL EXAMINATION: General: The patient is 52 year old female, well nourished, well hydrated in no acute distress. The patient is oriented to time, place, and person. VITALS: Blood pressure 118/86, pulse 65, temperature 36.4 C (97.5 F), height 165.1 cm (5' 5), weight 98.6 kg (217 lb 6.4 oz), [...] letter to requesting physician via [place] mail. Dipika Boles PA-C documented in this encounter [facility] 02-05-2023 Nurse Note REVIEW OF SYSTEMS: General: [...] Laura Harris LPN documented in this encounter [facility] 06-24-2022 Miscellaneous Notes Patient notified Yes, I [...] Lily Wade LPN documented in this encounter [facility] 06-18-2022 History of Present illness Narrative WEIGHT MANAGEMENT APPOINTMENT : Patient Summary: Lillian Romero is a 52 year old female with [...] and increased consumption of sugar sweetened beverages. Treatment Specialist of impaired eating habits:mindlessness Eating Disorder no Diet History: Past weight loss attempts? Weight watchers- lost 30lbs in one year. Obesity Related Comorbidities: Prior Weight Loss Surgery:No ACTIVE PROBLEM LIST Unspecified Hypothyroidism Goiter, Specified As Simple Anemia, Unspecified Abnormal Mammogram No history of [place], COPD, asthma, peptic ulcer dx, hyperlipidemia, gallstones, [...] thyroid disorder (hypothyroidism since age 8) NEURO: Migraines/HANEY:No; H/o seizures: No Glaucoma:No; Cataracts No Symptoms of pseudotumor cerebri:No The physical systems reviewed reveal no pathological symptoms that are pertinent to this visit Family History Problem Relation Age of Onset Hypertension Mother ULCERS/hypercholestremia other (epilipsy) Mother Hypertension Father HYPERCHOLESTREMIA Melanoma Father ear other (HYPOTHYRODISM) Sister Arthritis Sister Neck and Back Surgery other (HYPOTHYROIDISM) Sister Heart Paternal Grandmother Heart Paternal Grandfather [place] PREV: PAP UTD, Mammogram UTD and Colonoscopy [...] Results: reviewed with the patient Impression: Lillian Romero is a 52 year old female with [...] intervention is the best and most appropriate meterman therapeutic option. Prescription instructions reviewed with patient [...] which included preparing to see the patient, jsbd-kh-logs patient care, completing clinical documentation, obtaining and/or reviewing separately obtained history, performing a medically appropriate examination, counseling and educating the patient/family/caregiver, and ordering medications, tests, or procedures. Interested in nutrition consult- will call [place] Jennifer Ingram MD documented in this encounter [facility] 03-25-2022 Miscellaneous Notes March 25, 2022 PID: [id number] Lillian Romero [address] [place] [address] Dear Ms. Romero, We are pleased to inform you that [...] report will be kept on file at [facility] as part of your permanent medical record and are available for your continuing care. Thank you for allowing us to help in meeting your health care needs. Sincerely, Dr. Pal Interpreting Radiologist [facility] (Normal over 40) documented in this encounter [facility] 03-22-2022 History of Present illness Narrative Bibi is a 51 year old who presents for an annual gynecologic exam without complaints. Works at [employer]. Going to [place] this year. Expecting grandchild this winter. Still [...] L3 SAB3 IAB0 Ectopic0 Multiple0 Live Births0 [employer] History LMP: 10/03/2014 (Exact Date), Ablation Age at Menarche: Age at First : Age at Menopause: [employer] History Comments: Sexual Activity: Yes; Male Contraception: [...] Sister Heart Paternal Grandmother Heart Paternal Grandfather [place] SOCIAL HISTORY Social History Tobacco Use Smoking [...] external genitalia normal, normal Bartholin's glands, urethra, Elias-Fela Solis's glands, no vulvar lesions, no cervical lesions, [...] reviewed. Diet modification reviewed. Urinary urgency reviewed. Jennifer Ingram MD Data Abstractor offered: Patient declines. documented in this encounter [facility] 10-20-2012 History of Past i llness Narrative Problem Noted Date Resolved Date Premenopausal menorrhagia 10/20/20122013 Esophagitis, unspecified 012 Variants of migraine, not el sewhere classified, without mention of intractable migraine without mention of status migrainosus 10/02/2011 documented as of this encounter (statuses as of 03/22/2022) [facility] History of Past illness Narrative* Problem Noted Date Resolved Date Premenopausal menorrhagia 10/20/20122013 Esophagitis, unspecified 012 Variants of migraine, not el sewhere classified, without mention of intractable migraine without mention of status migrainosus 10/02/2011 documented as of this encounter (statuses as of 03/27/2022) [facility] History of Past illness Narrative* Problem Noted Date Resolved Date Premenopausal menorrhagia 10/20/20122013 Esophagitis, unspecified 012 Variants of migraine, not el sewhere classified, without mention of intractable migraine without mention of status migrainosus 10/02/2011 documented as of this encounter (statuses as of 06/19/2022) [facility] History of Past illness Narrative* Problem Noted Date Resolved Date Premenopausal menorrhagia 10/20/20122013 Esophagitis, unspecified 012 Variants of migraine, not el sewhere classified, without mention of intractable migraine without mention of status migrainosus 10/02/2011 documented as of this encounter (statuses as of 06/24/2022) [facility] History of Past illness Narrative* Problem Noted Date Diagnosed Date Resolved Date Premenopausal menorrhagia 10/20/2012 Esophagitis, unspecified Variants of migraine, not el sewhere classified, without mention of intractable migraine without mention of status migrainosus 10/02/2011 documented as of this encounter (statuses as of 02/11/2023) [facility] History of Past illness Narrative* Problem Noted Date Diagnosed Date Resolved Date Premenopausal menorrhagia 10/20/2012 Esophagitis, unspecified Variants of migraine, not el sewhere classified, without mention of intractable migraine without mention of status migrainosus 10/02/2011 documented as of this encounter (statuses as of 04/08/2023) [facility] History of Past illness Narrative* Problem Noted Date Diagnosed Date Resolved Date Premenopausal menorrhagia 10/20/2012 Esophagitis, unspecified Variants of migraine, not el sewhere classified, without mention of intractable migraine without mention of status migrainosus 10/02/2011 documented as of this encounter (statuses as of 04/09/2023) [facility] noteNo assessment information availableWBlanch[facility] Work Phone: Evaluation note* Diagnosis Encounter for gynecological examination (general) (routine) without abnormal findings- Primary Encounter for screening mammogram for malignant neoplasm of breast Other screening mammogram [facility] Diagnosis Class 2 severe obesity with [...] [facility] Diagnosis Encounter for screening for malignant neoplasm of colon- Primary Special screening for malignant neoplasms, colon Family history of colonic polyps documented [facility] Diagnosis Screening for colon cancer- Primary Special screening for malignant neoplasms, colon History of colon polyps Personal history of colonic polyps documented [facility] Diagnosis Urinary urgency- Primary Urgency of urination Recurrent UTI Urinary tract infection, site not specified Family history of osteoporosis Menopausal symptoms Symptomatic menopausal or female climacteric states documented in this encounter [facility] note* Diagnosis Encounter for gynecological examination (general) (routine) without abnormal findings- Primary Encounter for screening for human papillomavirus (HPV) Special screening examination for human papillomavirus (HPV) Pap smear for cervical cancer screening Screening for malignant neoplasm of the cervix Encounter for screening mammogram for breast cancer Urinary frequency Family history of osteopenia Family history of other musculoskeletal diseases Encounter for screening for osteoporosis Special screening for osteoporosis Asymptomatic postmenopausal status Malaise and fatigue Other malaise and fatigue Fibrocystic disease of right breast Diffuse cystic mastopathy Menopausal symptoms Symptomatic menopausal or female climacteric states Nocturia documented in this [facility]* Diagnosis Encounter for screening mammogram for malignant neoplasm of breast Other screening mammogram [facility]* Diagnosis Genitourinary syndrome of menopause- Primary Vaginal dryness Other specified symptom associated with female genital organs Urinary frequency documented in this encounter [facility] for referral (narrative)* Diagnostic Procedure Only (Routine) - Pending Review Specialty Diagnoses / Procedures Referred By Carolyn iglesias Referred To Contact [facility] Diagnoses Encounter for screening mammogram for malignant neoplasm of breast Procedures WOODY SCREENING W JORDAN SCREENING DIGITAL BREAST TOMOSYNTHESIS BI SCREENING MAMMOGRAPHY BI 2-VIEW BREAST INC CAD Jennifer Castaneda MD [address] [place] [address] [facility] [address] [place] [address] Referral ID Status Reason Start Date Expiration Date Visits Requested Visits Authorized [id number] Pending Review Auto-Generat ed Referral 04/21/2023 1 1 [facility] for referral (narrative)* Outpatient Procedure (Routine) - Closed Specialty Diagnoses / Procedures Referred By Carolyn iglesias Referred To Contact [facility] Diagnoses History of colon polyps Procedures COLONOSCOPY SCREENING COLONOSCOPY FLX DX W/COLLJ SPEC WHEN PFRMD Dipika Boles PA-C [address] [place] [address] [facility] [address] [place] [address] Referral ID Status Reason Start Date Expiration Date V isits Requested Visits Authorized [id number] Closed Auto-Generate d Referral 02/06/2023 02/06/2024 1 1 [facility] for referral (narrative)* Diagnostic Procedure Only (Routine) - New Request Specialty Diagnoses / Procedures Referred By Carolyn iglesias Referred To Contact [facility] Diagnoses Encounter for screening for osteoporosis Asymptomatic postmenopausal status Procedures DXA-AXIAL SKELETON DXA BONE DENSITY STUDY 1/> SITES AXIAL Pavan Le APRN.CRIMINAL RESEARCH SPECIALIST [address] [place] [address] [facility] Imaging [id number] Referral ID Status Reason Start Date Expiration Date Visits Requested Visits Authorized [id number] New Request Auto-Generat ed Referral 05/10/2024 06/09/2025 1 1 * Diagnostic Procedure Only (Routine) - New Request Specialty Diagnoses / Procedures Referred By Contac t Referred To Contact [facility] Diagnoses Encounter for screening mammogram for breast cancer Procedures WOODY SCREENING W JORDAN SCREENING DIGITAL BREAST TOMOSYNTHESIS BI SCREENING MAMMOGRAPHY BI 2-VIEW BREAST INC Pavan Walker APRN.CNP [address] [place] [address] [facility] [address] [place] [phone] Referral ID Status Reason Start Date Expiration Date Visits Requested Visits Authorized [id number] New Request Auto-Generat ed Referral 05/10/2024 06/09/2025 1 1 [facility] ([facility])No reason for referral information availableWBlanch[facility] Work Phone: Reason for visit Narrative* Outpatient Procedure (Routine) - Closed Specialty Diagnoses / Procedures Referred By Carolyn t Referred To Contact [facility] Diagnoses History of colon polyps Procedures COLONOSCOPY SCREENING COLONOSCOPY FLX DX W/COLLJ SPEC WHEN PFRMD Dipika Boles PA-C [address] [place] [address] [facility] [address] [place] [address] Referral ID Status Reason Start Date Expiration Date V isits Requested Visits Authorized [id number] Closed Auto-Generate d Referral 02/06/2023 02/06/2024 1 1 [facility] N[facility]* Diagnostic Procedure Only (Routine) - Closed Specialty Diagnoses / Procedures Referred By Contac t Referred To Contact [facility] Diagnoses Encounter for screening mammogram for malignant neoplasm of breast Procedures WOODY SCREENING W JORDAN SCREENING DIGITAL BREAST TOMOSYNTHESIS BI SCREENING MAMMOGRAPHY BI 2-VIEW BREAST INC CAD Jennifer Castaneda MD [address] [place] [address] [facility] [address] [place] [address] Referral ID Status Reason Start Date Expiration Date V isits Requested Visits Authorized [id number] Closed Auto-Generate d Referral 04/30/2023 05/29/2024 1 1 [facility] Advance Directives Advance Directive Response Recorded Date/ Time Living Will Yes November 07, 2019 1 1:08am Power of Patrol Sergeant Yes November 07, 2019 11:08am Advance Directive Response Recorded Date/ Time Living Will No June 20 023 9:39am Power of Patrol Sergeant No June 20, 2022 9:39am Advance Directive Response Recorded Date/ Time Living Will No June 20, 023 10:39am Power of Patrol Sergeant No June 20, 2022 10:39am Chief Complaint and Reason for Visit Chief Complaint PALPITATIONS LABS DONE 24HR URINE DROP OFF ONLY Chief Complaint Admit Date EORDER July 03, 2024 10:3 2am Medications Administered Section Inactive Administered Medications - [...] Given 04/07/2023 7:42 AM EST 2 mg Given 04/07/2023 7:33 AM EST 3 mg ondansetron (PF) 4 mg injection (ZOFRAN) 4 mg, INTRAVENOUS, DIRECTED, Starting on Fri04/07/23 at 0800, Until Fri04/07/23 at 1159, Dosing as directed for intraprocedural use only, Intraprocedure Given 04/07/2023 7:46 AM EST 4 mg Summary Purpose Family History No Family History Records FoundNo Family History Records Found Additional Source Comments Goals (unrecognized section and content) Goals may be documented in a n alternate sectionGoals may be documented in an alternate sectionGoals may be documented in an alternate sectionGoals may be documented in an alternate sectionGoals may be documented in an alternate sectionGoals may be documented in an alternate sectionGoals may be documented in an alternate section Source Comments (unrecognize d section and content) In the event this informatio n is protected by the Federal Confidentiality of Alcohol and Drug Abuse Patient Records regulations: The Federal rules restrict any use of the information to criminally investigate or prosecute any alcohol or drug abuse patient.[facility] the event this information is protected by the Federal Confidentiality of Alcohol and Drug Abuse Patient Records regulations: The Federal rules restrict any use of the information to criminally investigate or prosecute any alcohol or drug abuse patient.[facility] the event this information is protected by the Federal Confidentiality of Alcohol and Drug Abuse Patient Records regulations: The Federal rules restrict any use of the information to criminally investigate or prosecute any alcohol or drug abuse patient.[facility] the event this information is protected by the Federal Confidentiality of Alcohol and Drug Abuse Patient Records regulations: The Federal rules restrict any use of the information to criminally investigate or prosecute any alcohol or drug abuse patient.[facility] the event this information is protected by the Federal Confidentiality of Alcohol and Drug Abuse Patient Records regulations: The Federal rules restrict any use of the information to criminally investigate or prosecute any alcohol or drug abuse patient.[facility] the event this information is protected by the Federal Confidentiality of Alcohol and Drug Abuse Patient Records regulations: The Federal rules restrict any use of the information to criminally investigate or prosecute any alcohol or drug abuse patient.[facility] the event this information is protected by the Federal Confidentiality of Alcohol and Drug Abuse Patient Records regulations: The Federal rules restrict any use of the information to criminally investigate or prosecute any alcohol or drug abuse patient.[facility] the event this information is protected by the Federal Confidentiality of Alcohol and Drug Abuse Patient Records regulations: The Federal rules restrict any use of the information to criminally investigate or prosecute any alcohol or drug abuse patient.[facility] the event this information is protected by the Federal Confidentiality of Alcohol and Drug Abuse Patient Records regulations: The Federal rules restrict any use of the information to criminally investigate or prosecute any alcohol or drug abuse patient.[facility] the event this information is protected by the Federal Confidentiality of Alcohol and Drug Abuse Patient Records regulations: The Federal rules restrict any use of the information to criminally investigate or prosecute any alcohol or drug abuse patient.[facility] the event this information is protected by the Federal Confidentiality of Alcohol and Drug Abuse Patient Records regulations: The Federal rules restrict any use of the information to criminally investigate or prosecute any alcohol or drug abuse patient.[facility] the event this information is protected by the Federal Confidentiality of Alcohol and Drug Abuse Patient Records regulations: The Federal rules restrict any use of the information to criminally investigate or prosecute any alcohol or drug abuse patient.[facility] the event this information is protected by the Federal Confidentiality of Alcohol and Drug Abuse Patient Records regulations: The Federal rules restrict any use of the information to criminally investigate or prosecute any alcohol or drug abuse patient.[facility] the event this information is protected by the Federal Confidentiality of Alcohol and Drug Abuse Patient Records regulations: The Federal rules restrict any use of the information to criminally investigate or prosecute any alcohol or drug abuse patient.[facility] Reason for Visit (unrecogniz ed section and content) Reason Comments Yearly Exam Reason Comments Discussion Reason Comments Patient Update Reason Comments Consult Colonoscopy Reason Comments UTI Reason Comments Results Reason Comments Menopause Consult Care Teams (unrecognized sec tion and content) Rock Room Worker Relationship Specialty Start Date End Date Donnell Barroso MD PCP - General Family Medicine 06/24/11 Rock Room Worker Relationship Specialty Start Date End Date Donnell Barroso MD PCP - General Family Medicine 06/24/11 Rock Room Worker Relationship Specialty Start Date End Date Donnell Barroso MD PCP - General Family Medicine 06/24/11 Rock Room Worker Relationship Specialty Start Date End Date Donnell Barroso MD PCP - General Family Medicine 06/24/11 Team Status: Active Member Role Status Dates Dr. Donnell Barroso MD Family Provider Active Dr. Donnell Barroso MD Primary Care Provider Active Team Status: Inactive Member Role Status Dates Dr. Donnell Barroso MD Primary Care Provider Active Dr. Aleksandr Hyde DO Attending Provider, Emergency Provider Active Team Status: Inactive Member Role Status Dates Dr. Donnell Barroso MD Primary Care Provide r, Attending Provider, Referring Provider Active Team Status: Inactive Member Role Status Dates Dr. Donnell Barroso MD Primary Care Provider, Attending Caridad briseno Active Rock Room Worker Relationship Specialty Start Date End Date Donnell Barroso MD PCP - General Family Medicine 06/24/11 Rock Room Worker Relationship Specialty Start Date End Date Donnell Barroso MD PCP - General Family Medicine 06/24/11 Rock Room Worker Relationship Specialty Start Date End Date Donnell Barroso MD PCP - General Family Medicine 06/24/11 Rock Room Worker Relationship Specialty Start Date End Date Donnell Barroso MD PCP - General Family Medicine 06/24/11 Rock Room Worker Relationship Specialty Start Date End Date Donnell Barroso MD PCP - General Family Medicine 06/24/11 Rock Room Worker Relationship Specialty Start Date End Date Donnell Barroso MD PCP - General Family Medicine 06/24/11 Rock Room Worker Relationship Specialty Start Date End Date Donnell Barroso MD PCP - General Family Medicine 06/24/11 Rock Room Worker Relationship Specialty Start Date End Date Donnell Barroso MD PCP - General Family Medicine 06/24/11 Team Status: Inactive Member Role Status Dates Dr. Donnell Barroso MD Primary Care Provider Active Start: June 10, 2024 End: June 10, 2024 Mikki Kamara GAS CONTROLLER, GAS CONTROLLER-C Attending Provider Active Start: June 10, 2024 End: June 10, 2024 Team Status: Inactive Member Role Status Dates Dr. Donnell Barroso MD Primary Care Provider Active Start: July 03, 2024 End: July 03, 2024 Dr. Donnell Barroso MD Attending Provider Active St art: July 03, 2024 End: July 03, 2024 Dr. Donnell Barroso MD Referring Provider Active St art: July 03, 2024 End: July 03, 2024 Team Status: Active Member Role Status Dates Dr. Donnell Barroso MD Primary Care Provider Active Start: July 13, 2024 Dr. Donnell Barroso MD Attending Provider Active St art: July 13, 2024 Dr. Donnell Barroso MD Referring Provider Active St art: July 13, 2024 Team Status: Inactive Member Role Status Dates Dr. Donnell Barroso MD Primary Care Provider Active Start: July 13, 2024 End: July 13, 2024 Dr. Donnell Barroso MD Attending Provider Active St art: July 13, 2024 End: July 13, 2024 Dr. Donnell Barroso MD Referring Provider Active St art: July 13, 2024 End: July 13, 2024 Rock Room Worker Relationship Specialty Start Date End Date Donnell Barroso MD PCP - General Family Medicine 06/24/11 Rock Room Worker Relationship Specialty Start Date End Date Donnell Barroso MD PCP - General Family Medicine 06/24/11 INFORMATION SOURCE (unrecogn ized section and content) DATE CREATED AUTHOR 05/16/2024 [facility] DATE CREATED AUTHOR AUTHOR'S ORGANIZ ATION 07/24/2024 [facility] FOR RECORDS PERTAINING TO PATIENTS WHO ARE [...] BE BASED ON THE PRIMARY CLINICAL RECORDS. [facility] [employer] provides no warranty or guarantee of the accuracy or completeness of information in this document.
[2024-10-16 17:52] LABS: Bacteria 2+ /hpf (None Seen); Mucous, Urine 1+ /hpf (<or=2+); Renal Epithelial Cells 0-5 SEEN /hpf (0-5); Squamous Epithelial Cells - UA 0-5 SEEN /hpf (5-10); Transitional Epithelial - Ur 0-5 SEEN /hpf (0-5); White Blood Cells 5-10 SEEN /hpf (0-5)
[2024-10-16 18:20] LABS: AST(SGOT) 24 U/L (<=31); Alanine Aminotransfer ALT/SGPT 29 U/L (<=34); Albumin, Serum 4.3 g/dL (3.5-5.0); Alkaline Phosphatase 75 U/L (35-104); Anion Gap 11 (5-15); BUN 9 mg/dL (4-19); BUN/Creat Ratio 14.2 RATIO (10-20); Bilirubin, Direct 0.12 mg/dL (0.00-0.30); Calcium,Total 9.2 mg/dL (7.6-11.0); Carbon Dioxide 25.2 mmol/L (21.0-32.0); Chloride 103 mmol/L (98-108); Creatinine, Serum 0.64 mg/dL (0.70-1.20); EST Glomerular Filtration Rate 104 (>60); Estimated Creatinine Clearance 117.88 ml/min (50-250); Glucose 103 mg/dL (70-99); Lipase 20 U/L (13-75); Potassium 4.1 mmol/L (3.3-5.1); Protein, Total 7.3 g/dL (5.9-8.4); Sodium Level 139 mmol/L (133-145); Total Bilirubin 0.29 mg/dL (0.00-1.30); Troponin T High Sensitivity < 6 ng/L (<=14)
[2024-10-16 19:00] VITALS: PULSE 63; RESP 20; O2SAT 97
[2024-10-16 19:02] VITALS: BP 152/87; PULSE 68; RESP 18; TEMP 36.8; O2SAT 100
== END 2024-10-16 19:03 | disposition home or self-care (01) ==
PROVIDERS: Emergency Provider Emergency Medicine; PCP Family Medicine; Visit Provider Emergency Medicine
DX: R11.2 Nausea with vomiting, unspecified (principal); I10 Essential (primary) hypertension; R20.2 Paresthesia of skin; F41.9 Anxiety disorder, unspecified; E03.9 Hypothyroidism, unspecified; Z79.890 Hormone replacement therapy; Z79.899 Other long term (current) drug therapy
CPT/HCPCS: 70450; 71045; 80048; 80076; 81001; 83690; 84484; 85025; 93005; 96374; 99284; A4216; J2405

== ENCOUNTER → 2024-12-20 | Outpatient (CLI) | payer OTHER, SELFPAY ==
--- NOTE | 2024-12-20 15:28 | RAD_ITS ---
PROCEDURE: KNEE 4 OR MORE VIEWS 12/20/2024 REASON FOR EXAM: BILATERAL KNEE PAIN TECHNIQUE: KNEE 4 OR MORE VIEWS Laterality: FINDINGS: No evidence of acute fracture or dislocation. Joint spaces are maintained. No knee joint effusion. RAD/Knee 4 or More Views IMPRESSION: No acute osseous abnormalities. Reading Location: [id number]
--- NOTE | 2024-12-20 15:30 | RAD_ITS ---
PROCEDURE: KNEE 4 OR MORE VIEWS 12/20/2024 REASON FOR EXAM: BILATERAL KNEE PAIN TECHNIQUE: KNEE 4 OR MORE VIEWS Laterality: Left COMPARISON: NONE. FINDINGS: BONES: No acute fracture or focal osseous lesion. JOINTS: No significant joint effusion. No dislocation. Minimal narrowing of the medial compartment. SOFT TISSUES: The soft tissues are unremarkable. RAD/Knee 4 or More Views IMPRESSION: No acute osseous abnormality. Reading Location: [id number]
== END | disposition home or self-care (01) ==
LOC: MTRAD 15:13
PROVIDERS: PCP Family Medicine
DX: M25.561 Pain in right knee (principal); M25.562 Pain in left knee
CPT/HCPCS: 73564